=== PATIENT | female | born 1970 | race Caucasian/White ===

== ENCOUNTER 2020-08-10 10:47 | Outpatient (REF) | payer BC, SELFPAY ==
--- NOTE | 2020-08-10 10:55 | XR_ITS ---
EXAMINATION: XR SINUSES CLINICAL INFORMATION: Sinusitis COMPARISON: None TECHNIQUE: 4 FINDINGS: There is soft tissue opacification of the right maxillary and frontal sinuses suggestive of sinusitis. Paranasal sinuses are otherwise clear. Bony structures are unremarkable. XR/XR sinus min 3V IMPRESSION: Right maxillary and frontal sinusitis.
== END 2020-08-10 10:48 | disposition home or self-care (01) ==
LOC: HO.XRAY 10:47
PROVIDERS: PCP Internal Medicine; Visit Provider Otolaryngology
DX: J32.9 Chronic sinusitis, unspecified (principal)
CPT/HCPCS: 70220

== ENCOUNTER 2020-08-26 14:24 | Outpatient (REF) | payer BC, SELFPAY ==
--- NOTE | 2020-08-26 14:25 | CT_ITS ---
CT SINUS WITHOUT CONTRAST CLINICAL INFORMATION: Sinonasal polyps. COMPARISON: Sinus radiographs 08/10/2020. TECHNIQUE: Multidetector CT acquisition of the maxillofacial region is obtained without IV contrast. Multiplanar reformats are acquired and utilized for image interpretation. This CT examination was performed using dose optimization techniques as appropriate, variously including the following: *Automated exposure control *Adjustment of mA and/or kV according to patient size (this includes techniques or standardized protocols for targeted exams where dose is matched to indication/reason for exam; i.e. extremities or head) *Use of iterative reconstruction technique FINDINGS: There is moderate mucosal thickening within the right maxillary sinus. There is mild mucosal thickening within the left maxillary sinus. Moderate mucosal thickening within the left sphenoid sinus. There is moderate mucosal thickening within the ethmoid air cells bilaterally. The right frontal sinus and right frontal recess are completely opacified. TMJs are normal. Mastoid air cells and middle ear cavities are clear. 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 The internal carotid arteries remain will cover with bone. The bony orbits are intact. Fovea ethmoidalis and olfactory grooves are symmetric in depth. Severe rightward deviation of the nasal septum. No polypoid soft tissue is appreciated within the nasal cavities. The right maxillary ostium and infundibulum are opacified. CT/CT sinus wo con IMPRESSION: - Moderate sinus mucosal disease within the right maxillary sinus, the left sphenoid sinus, and within the ethmoid air cells bilaterally. The right frontal sinus and right frontal recess are completely opacified. The right maxillary ostium and infundibulum are opacified. - Severe rightward deviation of the nasal septum.
== END 2020-08-26 14:25 | disposition home or self-care (01) ==
LOC: HO.CT 14:24
PROVIDERS: PCP Internal Medicine; Visit Provider Otolaryngology
DX: J33.9 Nasal polyp, unspecified (principal); J34.2 Deviated nasal septum
CPT/HCPCS: 70486

== ENCOUNTER 2020-09-06 09:50 | Outpatient (REF) | payer BC, SELFPAY ==
[2020-09-06 11:12] LABS: MANUAL DIFF FLAG NO
[2020-09-06 11:23] LABS: Basophils Percent Auto 0.7 % (0-2); Eosinophils Absolute Auto 0.4 X10*3/uL (0.0-0.4); Eosinophils Percent Auto 5.7 % (0-4); Hematocrit 43.4 % (37-47); Hemoglobin 14.4 g/dl (12.0-16.0); Imm Gran Abs Auto 0.04 X10*3/uL (0.00-0.03); Imm Gran Pct Auto 0.7 % (0.0-0.4); Lymphocytes Absolute Auto 1.9 X10*3/uL (1.2-4.9); Lymphocytes Percent Auto 30.9 % (20-40); Mean Corpuscular HGB Conc 33.2 g/dl (31.0-35.0); Mean Corpuscular Hemoglobin 29.6 pg (27.0-33.0); Mean Corpuscular Volume 89.3 fL (80-98); Mean Platelet Volume 10.9 fL (9.4-12.3); Monocytes Absolute Auto 0.5 X10*3/uL (0.1-1.2); Neutrophils Absolute Auto 3.3 X10*3/uL (2.0-8.3); Platelet Count 242 X10*3/uL (160-400); Red Blood Count 4.86 X10*6/uL (4.20-5.50); Red Cell Distribution Width 11.9 % (11.0-16.0); White Blood Count 6.1 X10*3/uL (4.8-10.8)
[2020-09-06 11:54] LABS: Anion Gap 14 (12-20); Blood Urea Nitrogen 11 mg/dL (9-16); Carbon Dioxide 25 mmol/L (22-29); Chloride 103 mmol/L (96-108); Cholesterol 208 mg/dL; Estimated Glomerular Filt Rate > 60; Glucose Fasting 110 mg/dL (60-99); HDL Cholesterol 60 mg/dL; LDL Cholesterol Calculated 130 mg/dl; Potassium 4.7 mmol/l (3.3-5.1); Sodium 137 mmol/L (135-145); Triglycerides 90 mg/dL
[2020-09-08 22:32] LABS: TS Negative Control Passed; TS Panel A 1; TS Panel B 0; TS Positive Control Passed; TSpotTB Negative (SeeBelow)
== END 2020-09-06 09:51 | disposition home or self-care (01) ==
LOC: HO.HMGCLDS 09:50
PROVIDERS: PCP Internal Medicine; Visit Provider Internal Medicine
DX: I10 Essential (primary) hypertension (principal); Z00.01 Encounter for general adult medical examination with abnormal findings; Z11.1 Encounter for screening for respiratory tuberculosis; Z13.9 Encounter for screening, unspecified
CPT/HCPCS: 36415; 80048; 80061; 85025; 86481

== ENCOUNTER 2020-09-08 15:24 | Outpatient (REF) | payer BC, SELFPAY | END 2020-09-08 15:25 | disposition home or self-care (01) | LOC: HO.LAB 15:24 | PROVIDERS: PCP Internal Medicine; Visit Provider Internal Medicine | DX: Z20.828 Contact with and (suspected) exposure to other viral communicable diseases (principal) | CPT/HCPCS: C9803; U0003 ==

== ENCOUNTER 2021-06-16 08:42 | Outpatient (REF) | payer BC, SELFPAY ==
[2021-06-16 11:10] LABS: MANUAL DIFF FLAG NO
[2021-06-16 11:31] LABS: Basophils Percent Auto 0.7 % (0-2); Eosinophils Absolute Auto 0.1 X10*3/uL (0.0-0.4); Eosinophils Percent Auto 2.1 % (0-4); Hematocrit 41.9 % (37-47); Hemoglobin 14.1 g/dl (12.0-16.0); Imm Gran Abs Auto 0.03 X10*3/uL (0.00-0.03); Imm Gran Pct Auto 0.5 % (0.0-0.4); Lymphocytes Absolute Auto 1.9 X10*3/uL (1.2-4.9); Lymphocytes Percent Auto 30.1 % (20-40); Mean Corpuscular HGB Conc 33.7 g/dl (31.0-35.0); Mean Corpuscular Hemoglobin 29.6 pg (27.0-33.0); Mean Corpuscular Volume 87.8 fL (80-98); Mean Platelet Volume 11.2 fL (9.4-12.3); Monocytes Absolute Auto 0.5 X10*3/uL (0.1-1.2); Monocytes Percent Auto 7.8 % (2-11); Neutrophils Absolute Auto 3.6 X10*3/uL (2.0-8.3); Neutrophils Percent Auto 58.8 % (45-73); Platelet Count 183 X10*3/uL (160-400); Red Blood Count 4.77 X10*6/uL (4.20-5.50); White Blood Count 6.2 X10*3/uL (4.8-10.8)
== END 2021-06-16 08:43 | disposition home or self-care (01) ==
LOC: HO.HMGCLDS 08:42
PROVIDERS: PCP Internal Medicine; Visit Provider Internal Medicine
DX: K62.5 Hemorrhage of anus and rectum (principal); R14.0 Abdominal distension (gaseous)
CPT/HCPCS: 36415; 85025

== ENCOUNTER 2021-07-30 08:43 | Outpatient (REF) | payer BC, SELFPAY ==
--- NOTE | ~2021-07-30 | MM_ITS ---
EXAMINATION: MM SCREENING DIGITAL BREAST TOMOSYNTHESIS, BILATERAL CLINICAL INFORMATION: Screening. Asymptomatic. The lifetime risk of breast cancer based on the Tyrer-Cuzick Model is 9%. COMPARISON: Mammography: 06/26/2020, 03/01/2019, 02/11/2018, 02/08/2017 TECHNIQUE: Digital breast tomosynthesis is performed in both the craniocaudal and mediolateral oblique views along with computer-aided detection (CAD). Synthesized 2D images are generated from the tomosynthesis. FINDINGS: There are scattered areas of fibroglandular density (ACR BI-RADS breast composition Category b). There are no significant masses, abnormal calcifications, or other abnormalities. Small focal asymmetric density anterior lower inner left breast is similar to prior studies. No developing density. No significant changes. MM/MM tomosynthesis screening BI IMPRESSION: No mammographic evidence of malignancy. ASSESSMENT: BI-RADS 2: Benign RECOMMENDATION: Routine annual mammography screening. This patient's information was entered into a reminder system with a target due date for their next mammogram.
== END 2021-07-30 08:44 | disposition home or self-care (01) ==
LOC: HO.MAMMO 08:43
PROVIDERS: Visit Provider Internal Medicine
DX: Z12.31 Encounter for screening mammogram for malignant neoplasm of breast (principal)
CPT/HCPCS: 77063; 77067

== ENCOUNTER → 2021-08-17 09:46 | Outpatient (BNVA) | payer BC, SELFPAY | PROVIDERS: PCP Internal Medicine; Referring Provider Internal Medicine; Visit Provider Surgery | DX: K62.5 Hemorrhage of anus and rectum (principal) | CPT/HCPCS: 46600 ==

== ENCOUNTER 2021-09-23 06:30 | Day surgery (SDC) | payer BC, SELFPAY ==
--- NOTE | 2021-09-22 12:05 | HO.ANESPROP2 ---
Documented by User: Jil Trinidad NP 09/22/21 12:05 HPI - Anesthesia Eval Consult details Narrative: 50yo F for Colonoscopy, Poss Polypectomy PMFSH Active Problems Active Problems: All Active Problems (Updated 09/16/21 @ 12:39 by Susan Yanez MD) Surgical menopause (Acute) Rectal bleeding (Acute) External hemorrhoids (Acute) Seasonal allergies (Acute) Endometrial polyp (Acute) Varicose veins of both lower extremities (Acute) Past Medical History Medical History (Updated 09/16/21 @ 12:39 by Susan Yanez MD) Acute maxillary sinusitis Endometrial polyp External hemorrhoids Rectal bleeding Seasonal allergies Surgical menopause Varicose veins of both lower extremities Family History Family History Father Diabetes mellitus HTN (hypertension) Stroke Mother Diabetes mellitus HTN (hypertension) CHF (congestive heart failure) Sister Fibromyalgia Arthritis Maternal Grandfather History of heart attack Maternal Grandmother No problems noted. Paternal Grandfather No problems noted. Paternal Grandmother No problems noted. Brother No problems noted. Brother No problems noted. Sister No problems noted. Sister No problems noted. Son No problems noted. Daughter No problems noted. Daughter No problems noted. Daughter No problems noted. Daughter No problems noted. Daughter No problems noted. Surgical History Surgical History History of section History of exploratory laparotomy History of hysteroscopy History of total abdominal hysterectomy Social History Social History Housing: Apartment Alcohol intake: current Alcohol intake frequency: holidays/special occasions only Patient Tobacco Use Status: Never used Tobacco e-Cigarette/Vaping Use: Never Used Second Hand Smoke Exposure: No Use of substances other than those prescribed or required for medical reasons: No Are you DNR?: No Advance Directives: No Advance Directives Information Provided: No service: No Current occupational status: employed Meds Allergies Allergy/AdvReac Type Severity Reaction Status Date / Time No Known Allergies Allergy Verified 09/16/21 12:26 Exam Exam Date and Time: September 22, 2021 1205 Assessment and Plan Assessment Anesthesia Assessment: Chart Reviewed Documented by User: Russlavell Purdy 09/23/21 07:17 PMFSH Past Medical History Medical History (Updated 09/16/21 @ 12:39 by Susan Yanez MD) Acute maxillary sinusitis Endometrial polyp External hemorrhoids Rectal bleeding Seasonal allergies Surgical menopause Varicose veins of both lower extremities Functional capacity: independent ambulation Family History Family History Father Diabetes mellitus HTN (hypertension) Stroke Mother Diabetes mellitus HTN (hypertension) CHF (congestive heart failure) Sister Fibromyalgia Arthritis Maternal Grandfather History of heart attack Maternal Grandmother No problems noted. Paternal Grandfather No problems noted. Paternal Grandmother No problems noted. Brother No problems noted. Brother No problems noted. Sister No problems noted. Sister No problems noted. Son No problems noted. Daughter No problems noted. Daughter No problems noted. Daughter No problems noted. Daughter No problems noted. Daughter No problems noted. Family history of problems with anesthesia: No Surgical History Surgical History History of section History of exploratory laparotomy History of hysteroscopy History of total abdominal hysterectomy History of Problems with Anesthesia: No Social History Social History Housing: Apartment Alcohol intake: current Alcohol intake frequency: holidays/special occasions only Patient Tobacco Use Status: Never used Tobacco e-Cigarette/Vaping Use: Never Used Second Hand Smoke Exposure: No Use of substances other than those prescribed or required for medical reasons: No Are you DNR?: No Advance Directives: No Advance Directives Information Provided: No service: No Current occupational status: employed Meds Allergies Allergy/AdvReac Type Severity Reaction Status Date / Time No Known Allergies Allergy Verified 09/16/21 12:26 Exam Airway Mallampati Class: I TM Dist: >3cm Neck ROM: Full Loose/Missing/Broken Teeth: Yes Heart: rrr Lungs: bl breath sounds Assessment and Plan Final Anesthetic Review Family History of Problems with Anesthesia: No History of Problems with Anesthesia: No NPO: Yes ASA Class: II Final Preanesthetic Review: Meds/Allgs Chart Reviewed and Anes Risks/Benef Reviewed Patient Risk: Intermediate Procedure Risk: Intermediate Anesthetic Plan Anesthetic Plan: MAC: Disposition: Standard PACU
[2021-09-23 06:41] VITALS: BP 126/81; PULSE 86; RESP 16; TEMP 36.8; O2SAT 99; BMI 28.7
[2021-09-23] MEDS: Lactated Ringers 1,000 ML 100 ML IVCONT (07:13)
--- NOTE | 2021-09-23 07:23 | MHC.SHP ---
Pre-Procedural Eval Section A Date of Service: 09/23/21 Section B Chief Complaint: Rectal Bleeding Details of Present Illness: had passage of bright blood per rectum for several days in June Relevant Family History (Specify if Yes): No Relevant Social History: None Present Medications: see Short Stay Collaborative assessment Medical History: Significant History (seasonal allergies, varicose veins) Allergies: Allergies Allergy/AdvReac Type Severity Reaction Status Date / Time No Known Allergies Allergy Verified 09/16/21 12:26 Review of Systems Sugical H&P ROS: Negative: Constitution, Cardiovascular, Respiratory, Neurological, Psychiatric, Hem-Onc, Allergic/Immunologic, Gastrointestinal, Genitourinary, Musculoskeletal, Integumentary, Endocrine and Eyes/Ears/Nose/Throat Exam Surgical H&P Exam: Normal: HEENT, Normal: Heart, Normal: Lungs, Normal: Extremities, Normal: Abdomen, Normal: Skin and Normal: Neurological Plan Diagnosis/Plan: Unchanged I have reviewed the history and physical and performed a pertinent physical examination on my patient. No changes have occurred unless specified.
--- NOTE | 2021-09-23 08:02 | W.PM.OPN ---
Operative Note Operative Note Date of Service: 09/23/21 Narrative: Preop diagnosis: Rectal bleeding Postop diagnosis: 1. Mild diverticulosis him 2. Internal and external hemorrhoids Procedure: Colonoscopy surgeon: Bharat Downs MD The patient is a 50-year-old female with recent passage of bright blood per rectum for several days. . She did have hemorrhoids on examination in the office. Liver, in view of her age, I had recommended proceeding with colonoscopy. I discussed with the technique of this procedure and she was aware of the risks, benefits, and alternatives. She was brought to the operating room and placed in left lateral decubitus position under monitored anesthesia care. A full digital rectal was done. There were no palpable anal lesions except for internal and external hemorrhoids. The tip of the Olympus colonoscope was gently introduced through the anal orifice advanced with insufflation all the cecum. The cecum was intubated. The cecum was identified by visualization of the ileocecal valve as well as the appendiceal orifice. The cecal mucosa was unremarkable. The scope was gradually withdrawn with careful examination of the entire colonic mucosa being done with scope withdrawal. The patient had good bowel prep so it was unlikely that any lesion may have been missed. There was note of occasional diverticuli in the left colon and sigmoid The rectum was reached. There were no lesions seen. the anal shelf in the anal canal were examined carefully. She did have prominent internal and external hemorrhoids. The scope was then withdrawn completely with desufflation The patient tolerated the procedure well. There were no complications noted. Her next colonoscopy may be in the next 10 years. She falls at average risk for colon cancer.
[2021-09-23 08:09] VITALS: BP 107/65; PULSE 96; RESP 16; TEMP 36.3; O2SAT 98
[2021-09-23 08:24] VITALS: BP 110/75; PULSE 90; RESP 16; TEMP 36.3; O2SAT 98
[2021-09-23 08:39] VITALS: BP 117/74; PULSE 74; RESP 15; O2SAT 98
== END 2021-09-23 09:15 | disposition home or self-care (01) ==
PROVIDERS: PCP Internal Medicine; Visit Provider Surgery
PROC: 0DJD8ZZ Inspection of Lower Intestinal Tract, Via Natural or Artificial Opening Endoscopic (ICD-10-PCS; CPT 45378; principal; 2021-09-23 07:30)
DX: K62.5 Hemorrhage of anus and rectum (principal); K64.8 Other hemorrhoids; K64.4 Residual hemorrhoidal skin tags; K57.30 Diverticulosis of large intestine without perforation or abscess without bleeding; J30.2 Other seasonal allergic rhinitis; Z79.899 Other long term (current) drug therapy
CPT/HCPCS: 45378

== ENCOUNTER → 2021-10-05 10:07 | Outpatient (BNVA) | payer BC, SELFPAY | PROVIDERS: PCP Internal Medicine; Referring Provider Internal Medicine; Visit Provider Surgery ==

== ENCOUNTER 2021-10-25 08:16 | Outpatient (REF) | payer BC, SELFPAY ==
[2021-10-25 09:08] LABS: Binax Internal Control QC Valid; Binax Now Covid-19 Ag Positive (Negative)
== END 2021-10-25 08:17 | disposition home or self-care (01) ==
LOC: HO.LAB 08:16
PROVIDERS: Visit Provider Internal Medicine
DX: Z20.822 Contact with and (suspected) exposure to COVID-19 (principal)
CPT/HCPCS: C9803

== ENCOUNTER 2021-12-03 07:18 | Outpatient (REF) | payer BC, SELFPAY ==
[2021-12-03 10:59] LABS: MANUAL DIFF FLAG NO
[2021-12-03 11:10] LABS: Basophils Percent Auto 0.3 % (0-2); Eosinophils Absolute Auto 0.1 X10*3/uL (0.0-0.4); Eosinophils Percent Auto 0.8 % (0-4); Imm Gran Abs Auto 0.06 X10*3/uL (0.00-0.03); Imm Gran Pct Auto 0.8 % (0.0-0.4); Lymphocytes Absolute Auto 1.4 X10*3/uL (1.2-4.9); Lymphocytes Percent Auto 17.9 % (20-40); Mean Corpuscular HGB Conc 33.3 g/dl (31.0-35.0); Mean Corpuscular Hemoglobin 29.4 pg (27.0-33.0); Mean Corpuscular Volume 88.2 fL (80.0-98.0); Monocytes Absolute Auto 0.6 X10*3/uL (0.1-1.2); Monocytes Percent Auto 7.7 % (2-11); Neutrophils Absolute Auto 5.8 x10*3/uL (2.0-8.3); Neutrophils Percent Auto 72.5 % (45-73); Platelet Count 194 X10*3/uL (160-400); Red Cell Distribution Width 12.1 % (11.0-16.0)
[2021-12-03 11:35] LABS: Alanine Aminotransferase 40 U/L (0-31); Anion Gap 14 (12-20); Aspartate Amino Transferase 31 U/L (5-31); Blood Urea Nitrogen 8 mg/dL (9-16); Calcium 9.7 mg/dL (8.4-10.2); Carbon Dioxide 24 mmol/L (22-29); Chloride 101 mmol/L (96-108); Cholesterol 189 mg/dL; Estimated Glomerular Filt Rate > 60; Glucose Fasting 135 mg/dL (60-99); HDL Cholesterol 54 mg/dL; LDL Cholesterol Calculated 104 mg/dl; Potassium 4.2 mmol/L (3.3-5.1); Sodium 135 mmol/L (135-145); Triglycerides 159 mg/dL
[2021-12-03 11:41] LABS: TSH reflex Free T4 4.16 uIU/mL (0.32-4.0); Vitamin D 25-OH Total 15.6 ng/mL (>30)
[2021-12-03 12:19] LABS: Free T4 (Free Thyroxine) 0.83 ng/dL (0.71-1.85)
[2021-12-05 09:30] LABS: Folate 17.1 ng/mL (> or = 4.0); Vitamin B12 446 pg/mL (200-900)
== END 2021-12-03 07:19 | disposition home or self-care (01) ==
LOC: HO.HMGCLDS 07:18
PROVIDERS: Visit Provider Internal Medicine
DX: Z00.01 Encounter for general adult medical examination with abnormal findings (principal); I10 Essential (primary) hypertension; K64.4 Residual hemorrhoidal skin tags; R53.83 Other fatigue; E89.40 Asymptomatic postprocedural ovarian failure
CPT/HCPCS: 36415; 80048; 80061; 82306; 82607; 82746; 84439; 84443; 84450; 84460; 85025

== ENCOUNTER 2022-09-25 13:10 | Outpatient (REF) | payer BC, SELFPAY ==
--- NOTE | ~2022-09-25 | XR_ITS ---
EXAMINATION: XR ABDOMEN COMPLETE CLINICAL INDICATION: Unspecified abdominal pain COMPARISON: None TECHNIQUE: 2 views of the abdomen. FINDINGS: No dilated air-filled loops of small bowel to suggest an obstructive process. Normal colonic stool burden. No abnormal air-fluid levels identified on upright imaging. No gross free intra-abdominal air. Visualized lung bases are well aerated. No acute osseous abnormality. XR/XR abdomen min 2V IMPRESSION: Nonobstructive bowel gas pattern.
[2022-09-25 14:03] LABS: MANUAL DIFF FLAG NO
[2022-09-25 14:10] LABS: Basophils Percent Auto 0.6 % (0-2); Eosinophils Absolute Auto 0.1 X10*3/uL (0.0-0.4); Hematocrit 43.8 % (37.0-47.0); Hemoglobin 14.7 g/dl (12.0-16.0); Imm Gran Abs Auto 0.03 X10*3/uL (0.00-0.03); Imm Gran Pct Auto 0.4 % (0.0-0.4); Lymphocytes Absolute Auto 2.5 X10*3/uL (1.2-4.9); Lymphocytes Percent Auto 35.5 % (20-40); Mean Corpuscular HGB Conc 33.6 g/dl (31.0-35.0); Mean Corpuscular Hemoglobin 29.3 pg (27.0-33.0); Mean Corpuscular Volume 87.4 fL (80.0-98.0); Mean Platelet Volume 10.4 fL (9.4-12.3); Monocytes Absolute Auto 0.4 X10*3/uL (0.1-1.2); Monocytes Percent Auto 5.2 % (2-11); Neutrophils Absolute Auto 3.9 x10*3/uL (2.0-8.3); Neutrophils Percent Auto 56.3 % (45-73); Platelet Count 323 X10*3/uL (160-400); Red Blood Count 5.01 X10*6/uL (4.20-5.50); Red Cell Distribution Width 11.6 % (11.0-16.0)
[2022-09-25 14:38] LABS: Alanine Aminotransferase 39 U/L (0-31); Albumin Level 4.4 g/dL (3.5-5.0); Alkaline Phosphatase 84 U/L (39-117); Aspartate Amino Transferase 27 U/L (5-31); Bilirubin Direct < 0.2 mg/dL (0.0-0.5); Bilirubin Total 0.3 mg/dL (0.0-1.0); Total Protein 6.9 g/dL (6.5-8.0)
[2022-09-29 14:08] LABS: Endomysial IgA Antibody Negative (Negative); Transglutaminase Ab IgG <1.0 U/mL; Transglutaminase IgA <1.0 U/mL
== END 2022-09-25 13:11 | disposition home or self-care (01) ==
LOC: HO.HMGCX 13:10
PROVIDERS: PCP Internal Medicine; Visit Provider Physician Assistant
DX: R10.9 Unspecified abdominal pain (principal)
CPT/HCPCS: 36415; 74019; 80076; 85025; 86231; 86364

== ENCOUNTER 2022-10-13 10:34 | Outpatient (REF) | payer BC, SELFPAY ==
--- NOTE | ~2022-10-13 | US_ITS ---
EXAMINATION: US ABDOMEN COMPLETE CLINICAL INFORMATION: Right upper quadrant pain. COMPARISON: None TECHNIQUE: Real-time imaging of the abdominal viscera. FINDINGS: PANCREAS: Head and body are normal. Tail not well visualized due to bowel gas. ABDOMINAL AORTA: The proximal, mid, and distal segments are normal in caliber. INFERIOR VENA CAVA: Visualized portions are normal. LIVER: Liver echotexture is increased. Liver is normal in size and contour.. No focal hepatic lesion. There is no intrahepatic biliary duct dilatation seen. GALLBLADDER: Gallbladder is normal in size. Small echogenic density adjacent to the wall of the gallbladder that does not move or shadow suggestive of a bladder wall polyp or adenomyomatosis of the gallbladder wall. No definite gallstones. No gallbladder wall thickening. COMMON BILE DUCT: Normal in caliber measuring 0.3 cm in diameter. RIGHT KIDNEY: Hypoechoic area in the upper pole, question representing a prominent pyramid. Small right renal stone. No hydronephrosis. The kidney measures 10 cm in maximum dimension. LEFT KIDNEY: Small left renal stone. No hydronephrosis. No focal parenchymal lesions. The kidney measures 10 cm in maximum dimension. SPLEEN: Normal. The spleen measures 9.7 cm in maximum dimension. FREE FLUID: None. US/US abdomen complete IMPRESSION: Echogenic liver probably representing fatty infiltration. Probable small gallbladder wall polyps/adenomyomatosis of the gallbladder wall. No definite gallstones. Bilateral renal stones. Limited visualization of the tail the pancreas.
== END 2022-10-13 10:35 | disposition home or self-care (01) ==
LOC: HO.HMGCX 10:34
PROVIDERS: PCP Internal Medicine; Visit Provider Internal Medicine
DX: R10.11 Right upper quadrant pain (principal)
CPT/HCPCS: 76700

== ENCOUNTER 2022-10-21 08:34 | Outpatient (REF) | payer BC, SELFPAY ==
--- NOTE | ~2022-10-21 | MM_ITS ---
EXAMINATION: MM SCREENING DIGITAL BREAST TOMOSYNTHESIS, BILATERAL CLINICAL INFORMATION: Screening. Asymptomatic. The lifetime risk of breast cancer based on the Tyrer-Cuzick Model is 8%. COMPARISON: Mammography: 07/30/2021, 06/26/2020, 03/01/2019 TECHNIQUE: Digital breast tomosynthesis is performed in both the craniocaudal and mediolateral oblique views along with computer-aided detection (CAD). Synthesized 2D images are generated from the tomosynthesis. FINDINGS: There are scattered areas of fibroglandular density (ACR BI-RADS breast composition Category b). Parenchymal pattern is similar to prior studies. There is no significant masses, abnormal calcifications, developing density or architectural abnormality. Small oval nodular asymmetry mid lower inner left breast is similar to prior studies. The axilla and skin contours are unremarkable. No significant changes. MM/MM tomosynthesis screening BI IMPRESSION: No mammographic evidence of malignancy. ASSESSMENT: BI-RADS 2: Benign RECOMMENDATION: Routine annual mammography screening. This patient's information was entered into a reminder system with a target due date for their next mammogram.
== END 2022-10-21 08:35 | disposition home or self-care (01) ==
LOC: HO.MAMMO 08:34
PROVIDERS: PCP Internal Medicine; Visit Provider Internal Medicine
DX: Z12.31 Encounter for screening mammogram for malignant neoplasm of breast (principal)
CPT/HCPCS: 77063; 77067

== ENCOUNTER 2022-12-11 10:00 | Outpatient (AMB) | payer BC, SELFPAY ==
--- NOTE | 2022-12-11 10:40 | MHC.PC.OV ---
Vital Signs 12/11/22 10:41 Height 5 ft Weight 154 lb BMI 30.0 BP 120/74 Blood Pressure Location Lt brachial Position Sitting Pulse 74 Pulse Source Pulse Oximeter Pulse Oximetry (%) 98 Oxygen Delivery Method Room Air Intake Visit Reasons: PE Intake Note: Pt is here for her annual physical exam. Allergies No Known Allergies Allergy (Verified 12/19/23 08:26) Medication List - Last Reconciled 12/11/22 by Susan Yanez MD linaclotide (Linzess) 72 mcg PO QAM Tobacco use date assessed: 12/11/22 HPI PE HPI Details 52-year-old lady here today for physical exam. She has been having intermittent episodes of constipation irregular bowel movements, doing better on Linzess.. She has history of impaired fasting glucose, has history of vitamin-D deficiency and intolerance for dairy products. She does not get any further cervical cancer screening as she had a partial hysterectomy due to fibroids in the past. She is up-to-date with her screening mammogram, done earlier this year and is up-to-date with her screening colonoscopy done in 2020 with normal findings. [facility] Medical History (Updated 12/19/23 @ 09:17 by Susan Yanez MD) Irritable bowel syndrome with constipation Chronic pruritic rash in adult Lactose intolerance in adult Gallbladder polyp Vitamin D deficiency Impaired fasting glucose Diverticulosis Hemorrhoids Surgical menopause Rectal bleeding External hemorrhoids Seasonal allergies Endometrial polyp Varicose veins of both lower extremities Surgical History History of partial hysterectomy Hx of colonoscopy History of hysteroscopy History of section History of exploratory laparotomy Family History Father Diabetes mellitus HTN (hypertension) Stroke Mother Diabetes mellitus HTN (hypertension) CHF (congestive heart failure) Sister Fibromyalgia Arthritis Maternal Grandfather History of heart attack Maternal Grandmother No problems noted. Paternal Grandfather No problems noted. Paternal Grandmother No problems noted. Brother No problems noted. Brother No problems noted. Sister No problems noted. Sister No problems noted. Son No problems noted. Daughter No problems noted. Daughter No problems noted. Daughter No problems noted. Daughter No problems noted. Daughter No problems noted. Social History Housing: Apartment Alcohol intake: current Alcohol intake frequency: holidays/special occasions only Patient Tobacco Use Status: Never used Tobacco e-Cigarette/Vaping Use: Never Used Second Hand Smoke Exposure: No service: No Current occupational status: employed Cognitive needs: No Hearing needs: No Vision needs: No Questionnaire PHQ-9 Over the last 2 weeks, how often have you been bothered by any of the following problems? 1. Little interest or pleasure in doing things: not at all 2. Feeling down, depressed, or hopeless: not at all 3. Trouble falling or staying asleep, or sleeping too much: not at all 4. Feeling tired or having little energy: not at all 5. Poor appetite or overeating: not at all 6. Feeling bad about yourself - or that you are a failure or have let yourself or your family down: not at all 7. Trouble concentrating on things, such as reading the newspaper or watching television: not at all 8. Moving or speaking so slowly that other people could have noticed. Or the opposite - being so fidgety or restless that you have been moving around a lot more than usual: not at all 9. Thoughts that you would be better off or of hurting yourself in some way: not at all Total score: 0 Depression Screening Interpretation: Negative [id number] - PHQ-9 Billing: Yes Source: Developed by Drs. Kali Gomez, Miryam Rosenthal, Lee Galloway and colleagues, with an educational may from [employer]. Thrive Questionnaire Declines Thrive assessment: No Date Thrive assessed: 12/11/22 I am a: Patient What is your living situation today?: I have a steady place to live Within the past 12 months, did the food you bought not last and you didn't have the money to get more?: Never true Within the past 12 months, did you worry whether your food would run out before you got money to buy more?: Never true Do you have trouble paying for medicines?: No Do you have trouble getting transportation to medical appointments?: No Do you have trouble paying your heating and electricity bill?: No Do you have trouble taking care of your child, family member or friend?: No Do you have trouble with day-to-day activities such as bathing, preparing meals, shopping, managing finances, etc.?: No Are you currently unemployed and looking for a job?: No Are you interested in more education?: No AUDIT C Alcohol Use Questionnaire (AUDIT-C) 1. How often do you have a drink containing alcohol?: Monthly or less 2. How many drinks containing alcohol do you have on a typical day when you are drinking?: 1 or 2 3. How often do you have six or more drinks on one occasion?: Never Total Score: 1 DIANNA-7 AMB Questionnaire DIANNA-7 Date DIANNA - 7 assessed: 12/11/22 Feeling nervous, anxious, or on edge: 0 = Not at all Not being able to stop or control worryin = Not at all Worrying too much about different things: 0 = Not at all Trouble relaxin = Not at all Being so restless that it is hard to sit still: 0 = Not at all Becoming easily annoyed or irritable: 0 = Not at all Feeling afraid as if something awful might happen: 0 = Not at all Total DIANNA-7 score (0-4 normal; 5-9 mild; 10-14 moderate; 15-21 severe): 0 Source: Developed by Drs. Kali Gomez, Miryam Rosenthal, Lee Galloway and colleagues, with an educational may from [employer]. DIANNA-7 Assessment Billing DIANNA-7 Assessment Tool: DIANNA-7 Assessment 73108 Review of Systems Const Denies chills, Denies fatigue and Denies fever(s) Eyes Reports no additional complaints ENT Denies sore throat Card Denies chest pain, Denies palpitations and Denies dyspnea Resp Denies cough and Denies dyspnea GI Reports no additional complaints Denies hematuria Musc Denies back pain and Denies limited range of motion Skin/Breast Denies lesions and Denies rash Neuro Reports no additional complaints Psych Reports no additional complaints Endo Denies fatigue, Denies polyphagia, Denies polydipsia, Denies polyuria and Denies palpitations [place]/Lymph Denies easy bleeding and Denies easy bruising Aller/Immun Reports no additional complaints Physical exam (Primary Care) Vital Signs: Last Vital Signs Pulse 74 12/11/22 10:41 BP 120/74 12/11/22 10:41 Pulse Ox 98 12/11/22 10:41 Oxygen Delivery Method Room Air 12/11/22 10:41 BMI result Body Mass Index 30.0 Tobacco/Smoking Status: Tobacco use Status Tobacco use date assessed 12/11/22 12/11/22 10:43 Patient Tobacco Use Status Never used Tobacco 12/11/22 10:43 e-Cigarette/Vaping Use Never Used 12/11/22 10:43 PHQ-9: PHQ-9 Score PHQ-9: Total score 0 12/11/22 11:21 Depression Screening Interpretation: Negative Thrive Assessment: Date of Thrive Assessment Date Thrive assessed 12/11/22 12/11/22 10:59 Const General: comfortable, no acute distress and alert Nutritional Appearance: overweight Orientation/consciousness: patient oriented x3 HENMT Mouth: Normal oral and palatal mucosa present, oropharynx normal and moist mucous membranes Eyes General: appearance normal, both eyes and all related structures Periorbital: periorbital findings normal Eyelids: Yes eyelids normal Conjunctivae: conjunctivae normal Sclerae: sclerae normal Pupils: Equal, round and reactive pupils present EOM: EOMs intact bilaterally Neck Neck: Yes full ROM, Yes no lymphadenopathy and Yes supple Thyroid: Thyroid normal Chest Breast/axilla inspection: normal inspection of the breasts Breast/axilla palpation: normal palpation of the breasts Resp Auscultation: clear to auscultation bilaterally Cardio Rate: regular rate Rhythm: regular rhythm Heart sounds: S1 normal heart sound present and S2 normal heart sound present GI Inspection: Yes normal to inspection Palpation (GI): Soft to palpation, nontender, no guarding and no masses General: Yes no CVA tenderness Back/Spine/Pelvis Back: no CVA tenderness Skin General skin exam: no rashes or lesions noted Neuro General: patient oriented x3, gait normal, moves all extremities, Normal light touch and pain sensation and no focal motor deficits Cranial nerves: Yes Equal, round and reactive pupils present Extrem General: Yes full ROM, Yes no joint enlargement, Yes no clubbing, cyanosis or edema and Yes normal gait Psych Appearance: grossly normal and well kempt Mental Status: mental status grossly normal Speech and movement: Normal speech and movement present Affect: normal affect Attitude: cooperative Assessment and Plan Assessment & Plan (1) Vitamin D deficiency: Code(s): E55.9 - Vitamin D deficiency, unspecified Plan: Will check another vitamin-D level (2) Impaired fasting glucose: Code(s): R73.01 - Impaired fasting glucose Plan: Previous fasting glucose levels were higher than 100 mg/dL. Impaired glucose metabolism makes you at risk for developing diabetes mellitus type 2, as well as heart attack and stroke later on. Lifestyle changes , weight loss, healthy eating habits, and regular exercise are important, and can prevent the progression to diabetes (3) Annual visit for general adult medical examination with abnormal findings: Code(s): Z00.01 - Encounter for general adult medical examination with abnormal findings Plan: Will check appropriate labs. Recommended dental visit every 6 months and regular eye exams, at least every 2 years. Take adequate calcium in diet and vitamin-D 3 at 2000 IU per cap once a day, in addition to weight-bearing exercises to help maintain good muscle tone and weight control. Instructed to do self-breast exam, and contain to get yearly mammogram, up-to-date with her screening colonoscopy, and her vaccination (4) Surgical menopause: Code(s): E89.40 - Asymptomatic postprocedural ovarian failure Orders: Orders Vitamin D 25-OH Total 12/11/22 E55.9 - Vitamin D deficiency, unspecified, R73.01 - Impaired fasting glucose, Z00.01 - Encounter for general adult medical examination with abnormal findings, E89.40 - Asymptomatic postprocedural ovarian failure Aspartate Amino Transferase 12/11/22 E55.9 - Vitamin D deficiency, unspecified, R73.01 - Impaired fasting glucose, Z00.01 - Encounter for general adult medical examination with abnormal findings, E89.40 - Asymptomatic postprocedural ovarian failure Lipid Panel 12/11/22 E55.9 - Vitamin D deficiency, unspecified, R73.01 - Impaired fasting glucose, Z00.01 - Encounter for general adult medical examination with abnormal findings, E89.40 - Asymptomatic postprocedural ovarian failure Basic Metabolic Panel Fasting 12/11/22 E55.9 - Vitamin D deficiency, unspecified, R73.01 - Impaired fasting glucose, Z00.01 - Encounter for general adult medical examination with abnormal findings, E89.40 - Asymptomatic postprocedural ovarian failure Alanine Aminotransferase 12/11/22 E55.9 - Vitamin D deficiency, unspecified, R73.01 - Impaired fasting glucose, Z00.01 - Encounter for general adult medical examination with abnormal findings, E89.40 - Asymptomatic postprocedural ovarian failure Coding Level of Care Code Est Pt Prev Care 40-64y(61629) Diagnoses Vitamin D deficiency E55.9 Impaired fasting glucose R73.01 Annual visit for general adult medical examination with abnormal findings Z00.01 Surgical menopause E89.40 Additional Codes DIANNA-7 Assessment Billing - DIANNA-7 Assessment Tool: DIANNA-7 Assessment [id number] ([id number])
[2022-12-11 10:41] VITALS: BP 120/74; PULSE 74; O2SAT 98
== END 2022-12-11 11:21 | disposition home or self-care (01) ==
LOC: HO.HMGC 10:01
PROVIDERS: PCP Internal Medicine; Visit Provider Internal Medicine
DX: E55.9 Vitamin D deficiency, unspecified (principal); R73.01 Impaired fasting glucose; Z00.01 Encounter for general adult medical examination with abnormal findings; E89.40 Asymptomatic postprocedural ovarian failure
CPT/HCPCS: 99499

== ENCOUNTER 2023-03-15 07:44 | Outpatient (REF) | payer BC, SELFPAY ==
[2023-03-15 11:51] LABS: Alanine Aminotransferase 21 U/L (0-31); Anion Gap 13 (12-20); Aspartate Amino Transferase 27 U/L (5-31); Blood Urea Nitrogen 11 mg/dL (9-16); Calcium 9.8 mg/dL (8.4-10.2); Carbon Dioxide 25 mmol/L (22-29); Chloride 106 mmol/L (96-108); Cholesterol 186 mg/dL; Estimated Glomerular Filt Rate > 60; Glucose Fasting 121 mg/dL (60-99); HDL Cholesterol 51 mg/dL; LDL Cholesterol Calculated 108 mg/dl; Potassium 4.3 mmol/L (3.3-5.1); Sodium 140 mmol/L (135-145); Triglycerides 136 mg/dL; Vitamin D 25-OH Total 32.7 ng/mL (>30)
== END 2023-03-15 07:45 | disposition home or self-care (01) ==
LOC: HO.HMGCLDS 07:44
PROVIDERS: PCP Internal Medicine; Visit Provider Internal Medicine
DX: Z00.01 Encounter for general adult medical examination with abnormal findings (principal); E55.9 Vitamin D deficiency, unspecified; E89.40 Asymptomatic postprocedural ovarian failure; R73.01 Impaired fasting glucose
CPT/HCPCS: 36415; 80048; 80061; 82306; 84450; 84460

== ENCOUNTER 2023-09-03 13:50 | Outpatient (AMB) | payer BC, SELFPAY ==
[2023-09-03 14:36] VITALS: BP 126/82; PULSE 71; TEMP 36.6; O2SAT 98; BMI 28.7
--- NOTE | 2023-09-03 14:36 | AM.OFFWIN_ITS ---
Intake Vital Signs 09/03/23 14:36 Height 5 ft Weight 147 lb 2 oz BMI 28.7 BP 126/82 Blood Pressure Location Lt brachial Position Sitting Pulse 71 Pulse Source Pulse Oximeter Temp 97.8 F Temp Source Oral Pulse Oximetry (%) 98 Oxygen Delivery Method Room Air Intake Visit Reasons: EP, left teary eye Intake Note: pt is here for c/o left teary eye, denies vision change Patient Tobacco Use Status: Never used Tobacco Allergies No Known Allergies Allergy (Verified 09/03/23 14:37) Do you need a note to return to daycare/school/sports/work: Yes HPI EP, left teary eye HPI Details 52-year-old female presents to the [facility] for a sick visit. Patient is reporting symptoms of increased years, congestion. No blurred vision. Does not wear contact lenses. [facility] Medical History (Updated 04/02/23 @ 08:43 by Kenrick Morillo MD) Lactose intolerance in adult Gallbladder polyp Pelvic pain Vitamin D deficiency Impaired fasting glucose Diverticulosis Hemorrhoids Surgical menopause Rectal bleeding External hemorrhoids Seasonal allergies Endometrial polyp Varicose veins of both lower extremities Surgical History History of partial hysterectomy Hx of colonoscopy History of hysteroscopy History of section History of exploratory laparotomy Family History Father Diabetes mellitus HTN (hypertension) Stroke Mother Diabetes mellitus HTN (hypertension) CHF (congestive heart failure) Sister Fibromyalgia Arthritis Maternal Grandfather History of heart attack Maternal Grandmother No problems noted. Paternal Grandfather No problems noted. Paternal Grandmother No problems noted. Brother No problems noted. Brother No problems noted. Sister No problems noted. Sister No problems noted. Son No problems noted. Daughter No problems noted. Daughter No problems noted. Daughter No problems noted. Daughter No problems noted. Daughter No problems noted. Social History Housing: Apartment Alcohol intake: current Alcohol intake frequency: holidays/special occasions only Patient Tobacco Use Status: Never used Tobacco e-Cigarette/Vaping Use: Never Used Second Hand Smoke Exposure: No service: No Current occupational status: employed Cognitive needs: No Hearing needs: No Vision needs: No Physical Exam Vital Signs: Last Vital Signs Temp 97.8 F 09/03/23 14:36 Pulse 71 09/03/23 14:36 BP 126/82 09/03/23 14:36 Pulse Ox 98 09/03/23 14:36 Oxygen Delivery Method Room Air 09/03/23 14:36 BMI result Body Mass Index 28.7 HEENT Other: Right and left eye: Bulbar conjunctiva is clear. Anterior chambers clear. Assessment & Plan Assessment & Plan (1) Conjunctivitis: Code(s): H10.9 - Unspecified conjunctivitis Plan: Allergic etiology. Symptoms do not improve to follow-up here. Medications: New ketotifen fumarate 0.025%(0.035%) (Zaditor) administer at least 8 hours apart 1 drp ophthalmic (eye) BID 5 mL 0RF Coding Level of Care Code Est Pt Level 3 (70613) Diagnoses Conjunctivitis H10.9
== END 2023-09-03 15:22 | disposition home or self-care (01) ==
PROVIDERS: PCP Internal Medicine; Visit Provider Internal Medicine
DX: H10.9 Unspecified conjunctivitis (principal)
CPT/HCPCS: 99213

== ENCOUNTER 2023-11-10 08:13 | Outpatient (REF) | payer BC, SELFPAY | END 2023-11-10 08:14 | disposition home or self-care (01) | LOC: HO.MAMMO 08:13 | PROVIDERS: PCP Internal Medicine; Visit Provider Internal Medicine | DX: Z12.31 Encounter for screening mammogram for malignant neoplasm of breast (principal) | CPT/HCPCS: 77063; 77067 ==

== ENCOUNTER → 2023-11-10 08:15 | Outpatient (BNV) | payer BC, SELFPAY | PROVIDERS: PCP Internal Medicine; Visit Provider Radiology Diagnostic Radiology | DX: Z12.31 Encounter for screening mammogram for malignant neoplasm of breast (principal) | CPT/HCPCS: 77063; 77067 ==

== ENCOUNTER 2023-12-19 07:59 | Outpatient (AMB) | payer BC, SELFPAY ==
[2023-12-19 08:03] VITALS: BP 122/84; PULSE 82; O2SAT 99; BMI 29.3
--- NOTE | 2023-12-19 08:03 | MHC.PC.OV ---
Vital Signs 12/19/23 08:03 Height 5 ft Weight 150 lb 4 oz BMI 29.3 BP 122/84 Blood Pressure Location Rt brachial Position Sitting Pulse 82 Pulse Source Pulse Oximeter Pulse Oximetry (%) 99 Oxygen Delivery Method Room Air Intake Visit Reasons: Annual PE Intake Note: Pt is here today for her Annual Physical. Last mammogram 11/10/23 Last colonoscopy 09/23/21 Decline Pap Allergies No Known Allergies Allergy (Verified 12/19/23 08:26) Medication List - Last Reconciled 12/19/23 by Susan Yanez MD cetirizine (All Day Allergy (cetirizine)) 10 mg PO DAILY linaclotide (Linzess) 72 mcg PO QAM montelukast 10 mg PO BEDTIME Tobacco use date assessed: 12/19/23 Dental Screening Dental Screen Date: 12/19/23 Did you have a dental visit in the last 12 months?: No Did you have a dental problem in the last 6 months where you did not have access to dental care?: No Was dental information given to patient?: Patient has dentist HPI Annual PE HPI Details 53-year-old lady here today for physical exam. She is up-to-date with her screening mammogram done earlier this year and had a colonoscopy done in 2020 which showed presence of diverticulosis and internal hemorrhoids, done by Dr. Downs, repeat again in 2030. Patient declined getting cervical cancer screening or pelvic exam, as she states that she already had her partial hysterectomy done in 2003 due to endometrial polyps which came back benign. She has been seen at [facility], for patient was diagnosed to have IBS with constipation placed on Linzess, which has been helping but over the last several weeks she states that the lower dose prescription has stopped helping with regulating her bowel movements, has been advised by the PA to increase dose to 2 tablets but patient did not follow through, wants to do it on her own through adjustment in her diet. She has this chronic pruritic rash on her chest, face arms initially was thought to be contact dermatitis and was placed on montelukast and cetirizine 10 mg daily at night. She has been seen at [facility] and had a skin biopsy done which came back positive for lupus, has an appointment now with Dr. Fitzpatrick at rheumatology clinic in [place] on 01/21/2024 for further evaluation and management. She does experience recurrent pain in her knees, hips and complains of chronic fatigue and foggy headed. She has impaired fasting glucose, has been compliant with healthy eating habits but has not been getting any regular exercise. copy of consult reports/ test and biopsy results requested from both [facility] and [facility] in [place]. [facility] Medical History (Updated 12/19/23 @ 09:17 by Susan Yanez MD) Irritable bowel syndrome with constipation Chronic pruritic rash in adult Lactose intolerance in adult Gallbladder polyp Vitamin D deficiency Impaired fasting glucose Diverticulosis Hemorrhoids Surgical menopause Rectal bleeding External hemorrhoids Seasonal allergies Endometrial polyp Varicose veins of both lower extremities Surgical History History of partial hysterectomy Hx of colonoscopy History of hysteroscopy History of section History of exploratory laparotomy Family History Father Diabetes mellitus HTN (hypertension) Stroke Mother Diabetes mellitus HTN (hypertension) CHF (congestive heart failure) Sister Fibromyalgia Arthritis Maternal Grandfather History of heart attack Maternal Grandmother No problems noted. Paternal Grandfather No problems noted. Paternal Grandmother No problems noted. Brother No problems noted. Brother No problems noted. Sister No problems noted. Sister No problems noted. Son No problems noted. Daughter No problems noted. Daughter No problems noted. Daughter No problems noted. Daughter No problems noted. Daughter No problems noted. Social History Housing: Apartment Alcohol intake: current Alcohol intake frequency: holidays/special occasions only Patient Tobacco Use Status: Never used Tobacco e-Cigarette/Vaping Use: Never Used Second Hand Smoke Exposure: No service: No Current occupational status: employed Cognitive needs: No Hearing needs: No Vision needs: No Questionnaire PHQ-9 Over the last 2 weeks, how often have you been bothered by any of the following problems? 1. Little interest or pleasure in doing things: not at all 2. Feeling down, depressed, or hopeless: not at all 3. Trouble falling or staying asleep, or sleeping too much: several days 4. Feeling tired or having little energy: several days 5. Poor appetite or overeating: several days 6. Feeling bad about yourself - or that you are a failure or have let yourself or your family down: not at all 7. Trouble concentrating on things, such as reading the newspaper or watching television: not at all 8. Moving or speaking so slowly that other people could have noticed. Or the opposite - being so fidgety or restless that you have been moving around a lot more than usual: not at all 9. Thoughts that you would be better off or of hurting yourself in some way: not at all Total score: 3 Depression Screening Interpretation: Negative Depression Screening Done: Yes 03815 - PHQ-9 Billing: Yes Source: Developed by Drs. Kali Gomez, Miryam Rosenthal, Lee Galloway and colleagues, with an educational may from [employer]. Thrive Questionnaire Date Thrive assessed: 12/19/23 I am a: Patient What is your living situation today?: I have a steady place to live Within the past 12 months, did the food you bought not last and you didn't have the money to get more?: Never true Within the past 12 months, did you worry whether your food would run out before you got money to buy more?: Never true Do you have trouble paying for medicines?: No Do you have trouble getting transportation to medical appointments?: No Do you have trouble paying your heating and electricity bill?: No Do you have trouble taking care of your child, family member or friend?: No Do you have trouble with day-to-day activities such as bathing, preparing meals, shopping, managing finances, etc.?: No Are you currently unemployed and looking for a job?: No Are you interested in more education?: No Please select the resources that you would like help with: None Currently or been in a relationship where the following occur: no concerns reported THRIVE Score: 0 AUDIT C Alcohol Use Questionnaire (AUDIT-C) 1. How often do you have a drink containing alcohol?: Monthly or less 2. How many drinks containing alcohol do you have on a typical day when you are drinking?: 1 or 2 3. How often do you have six or more drinks on one occasion?: Never Total Score: 1 Score Reviewed/Action Taken: Yes DIANNA-7 AMB Questionnaire DIANNA-7 Date DIANNA - 7 assessed: 12/19/23 Feeling nervous, anxious, or on edge: 0 = Not at all Not being able to stop or control worryin = Not at all Worrying too much about different things: 0 = Not at all Trouble relaxin = Not at all Being so restless that it is hard to sit still: 0 = Not at all Becoming easily annoyed or irritable: 0 = Not at all Feeling afraid as if something awful might happen: 0 = Not at all Total DIANNA-7 score (0-4 normal; 5-9 mild; 10-14 moderate; 15-21 severe): 0 Source: Developed by Drs. Kali Gomez, Miryam Rosenthal, Lee Galloway and colleagues, with an educational may from [employer]. DIANNA-7 Assessment Billing DIANNA-7 Assessment Tool: DIANNA-7 Assessment 85171 Review of Systems Const Reports body aches, Reports fatigue, Denies headache(s) and Reports lethargy Eyes Details: Has had current eye itching, seen and followed at [facility] Reports no additional complaints, Denies dizziness and Denies headache(s) Card Denies chest pain at rest, Denies chest pain with activity, Denies palpitations and Denies dyspnea Resp Denies cough and Denies dyspnea GI Reports as per HPI, Denies abdominal pain, Denies melena, Denies bloating, Denies hematochezia and Denies heartburn Reports no additional complaints Musc Reports as per HPI, Denies joint swelling and Denies limited range of motion Skin/Breast Reports as per HPI, Denies breast skin changes, Denies breast pain, Denies breast mass and Denies alopecia Neuro Details: Forgetful Denies dizziness and Denies headache(s) Psych Reports no additional complaints Endo Reports fatigue and Denies palpitations [place]/Lymph Denies easy bleeding and Denies easy bruising Aller/Immun Reports seasonal rhinorrhea Physical exam (Primary Care) Vital Signs: Last Vital Signs Pulse 82 12/19/23 08:03 BP 122/84 12/19/23 08:03 Pulse Ox 99 12/19/23 08:03 Oxygen Delivery Method Room Air 12/19/23 08:03 BMI result Body Mass Index 29.3 Tobacco/Smoking Status: Tobacco use Status Tobacco use date assessed 03/06/24 03/06/24 08:07 Patient Tobacco Use Status Never used Tobacco 12/19/23 08:07 e-Cigarette/Vaping Use Never Used 12/19/23 08:07 PHQ-9: PHQ-9 Score PHQ-9: Total score 3 12/19/23 08:48 Depression Screening Interpretation: Negative Thrive Assessment: Date of Thrive Assessment Date Thrive assessed 12/19/23 12/19/23 08:48 Currently or been in a relationship where the following occur: no concerns reported Const General: comfortable, no acute distress and alert Nutritional Appearance: overweight Orientation/consciousness: patient oriented x3 HENMT Mouth: Normal oral and palatal mucosa present, oropharynx normal and moist mucous membranes Eyes General: appearance normal, both eyes and all related structures Periorbital: periorbital findings normal Eyelids: Yes eyelids normal Conjunctivae: conjunctivae normal Sclerae: sclerae normal Pupils: Equal, round and reactive pupils present EOM: EOMs intact bilaterally Neck Neck: Yes full ROM, Yes no lymphadenopathy and Yes supple Thyroid: Thyroid normal Chest Breast/axilla inspection: normal inspection of the breasts Breast/axilla palpation: normal palpation of the breasts Resp Auscultation: clear to auscultation bilaterally Cardio Rate: regular rate Rhythm: regular rhythm Heart sounds: S1 normal heart sound present and S2 normal heart sound present GI Inspection: Yes normal to inspection Palpation (GI): Soft to palpation, nontender, no guarding and no masses General: Yes no CVA tenderness Back/Spine/Pelvis Back: no CVA tenderness Skin Other: Erythematous papular rash on anterior chest, cheeks, arms Neuro General: patient oriented x3, gait normal, moves all extremities, Normal light touch and pain sensation and no focal motor deficits Cranial nerves: Yes Equal, round and reactive pupils present Extrem Other: Slight swelling on ulnar aspect of left wrist, slightly tender to palpation, full range of motion of all joints noted General: Yes full ROM, Yes no joint enlargement, Yes no clubbing, cyanosis or edema and Yes normal gait Psych Appearance: grossly normal and well kempt Mental Status: mental status grossly normal Speech and movement: Normal speech and movement present Affect: normal affect Attitude: cooperative Thought process: Normal thought process present Thought content: Normal thought content present Assessment and Plan Assessment & Plan (1) Surgical menopause: Code(s): E89.40 - Asymptomatic postprocedural ovarian failure Plan: Advised to do regular weight-bearing exercise, start taking embp-[id number] vitamin D3 at 2000 units daily, take adequate calcium from dietary sources. (2) Impaired fasting glucose: Code(s): R73.01 - Impaired fasting glucose Plan: Ordered fasting glucose and hemoglobin A1c levels Impaired glucose metabolism makes you at risk for developing diabetes mellitus type 2, as well as heart attack and stroke later on. Lifestyle changes , healthy eating habits, and regular exercise are important, and can prevent the progression to diabetes (3) Annual visit for general adult medical examination with abnormal findings: Code(s): Z00.01 - Encounter for general adult medical examination with abnormal findings Plan: Will check appropriate labs. Recommended dental visit every 6 months and regular eye exams, goes to [facility] [place]. Take adequate calcium in diet and vitamin-D 3 at 2000 IU per cap once a day, in addition to weight-bearing exercises to help maintain good muscle tone and weight control. Instructed to do self-breast exam, and continue yearly mammogram, currently up-to-date, no longer gets cervical cancer screen, had partial hysterectomy.. Has had COVID vaccines in the past does not want to get booster, declines getting flu shot, due for her repeat tetanus diphtheria booster this year. (4) Irritable bowel syndrome with constipation: Code(s): K58.1 - Irritable bowel syndrome with constipation Plan: Advised to restart taking Linzess again and follow-up with GI if symptoms persists (5) Chronic pruritic rash in adult: Comment: Seen at [facility] and had a skin biopsy which came back positive for lupus Code(s): L29.8 - Other pruritus Plan: Patient states that she had a skin biopsy done at [facility] which came back positive for lupus, patient already has an appointment to see rheumatology clinic in [place] on 01/21/2024 Orders: Orders TSH reflex Free T4 Today E55.9 - Vitamin D deficiency, unspecified, E89.40 - Asymptomatic postprocedural ovarian failure, K82.4 - Cholesterolosis of gallbladder, R73.01 - Impaired fasting glucose, Z00.01 - Encounter for general adult medical examination with abnormal findings, Z13.220 - Encounter for screening for lipoid disorders Vitamin D 25-OH Total Today E55.9 - Vitamin D deficiency, unspecified, E89.40 - Asymptomatic postprocedural ovarian failure, K82.4 - Cholesterolosis of gallbladder, R73.01 - Impaired fasting glucose, Z00.01 - Encounter for general adult medical examination with abnormal findings, Z13.220 - Encounter for screening for lipoid disorders Lipid Panel Today E55.9 - Vitamin D deficiency, unspecified, E89.40 - Asymptomatic postprocedural ovarian failure, K82.4 - Cholesterolosis of gallbladder, R73.01 - Impaired fasting glucose, Z00.01 - Encounter for general adult medical examination with abnormal findings, Z13.220 - Encounter for screening for lipoid disorders Comprehensive [place]. Panel Fast Today E55.9 - Vitamin D deficiency, unspecified, E89.40 - Asymptomatic postprocedural ovarian failure, K82.4 - Cholesterolosis of gallbladder, R73.01 - Impaired fasting glucose, Z00.01 - Encounter for general adult medical examination with abnormal findings, Z13.220 - Encounter for screening for lipoid disorders Complete Blood Count Auto Diff Today E55.9 - Vitamin D deficiency, unspecified, E89.40 - Asymptomatic postprocedural ovarian failure, K82.4 - Cholesterolosis of gallbladder, R73.01 - Impaired fasting glucose, Z00.01 - Encounter for general adult medical examination with abnormal findings, Z13.220 - Encounter for screening for lipoid disorders Hemoglobin A1c Today E55.9 - Vitamin D deficiency, unspecified, E89.40 - Asymptomatic postprocedural ovarian failure, K82.4 - Cholesterolosis of gallbladder, R73.01 - Impaired fasting glucose, Z00.01 - Encounter for general adult medical examination with abnormal findings, Z13.220 - Encounter for screening for lipoid disorders Coding Level of Care Code Est Pt Prev Care 40-64y(27048) Diagnoses Surgical menopause E89.40 Impaired fasting glucose R73.01 Annual visit for general adult medical examination with abnormal findings Z00.01 Irritable bowel syndrome with constipation K58.1 Chronic pruritic rash in adult L29.8 Additional Codes DIANNA-7 Assessment Billing - DIANNA-7 Assessment Tool: DIANNA-7 Assessment 44039 ([id number])
== END 2023-12-19 09:00 | disposition home or self-care (01) ==
PROVIDERS: Visit Provider Internal Medicine
DX: Z00.00 Encounter for general adult medical examination without abnormal findings (principal); E89.40 Asymptomatic postprocedural ovarian failure; R73.01 Impaired fasting glucose; K58.1 Irritable bowel syndrome with constipation; L29.8 Other pruritus
CPT/HCPCS: 99396

== ENCOUNTER 2023-12-19 08:57 | Outpatient (REF) | payer BC, SELFPAY ==
[2023-12-19 11:11] LABS: MANUAL DIFF FLAG NO
[2023-12-19 11:13] LABS: Basophils Percent Auto 0.8 % (0-2); Eosinophils Absolute Auto 0.1 X10*3/uL (0.0-0.4); Eosinophils Percent Auto 1.9 % (0-4); Hematocrit 44.5 % (37.0-47.0); Hemoglobin 15.2 g/dl (12.0-16.0); Imm Gran Abs Auto 0.02 X10*3/uL (0.00-0.03); Imm Gran Pct Auto 0.4 % (0.0-0.4); Lymphocytes Absolute Auto 1.7 X10*3/uL (1.2-4.9); Mean Corpuscular HGB Conc 34.2 g/dl (31.0-35.0); Mean Corpuscular Hemoglobin 29.3 pg (27.0-33.0); Mean Corpuscular Volume 85.9 fL (80.0-98.0); Mean Platelet Volume 11.5 fL (9.4-12.3); Monocytes Absolute Auto 0.4 X10*3/uL (0.1-1.2); Monocytes Percent Auto 8.5 % (2-11); Neutrophils Absolute Auto 2.5 x10*3/uL (2.0-8.3); Neutrophils Percent Auto 52.4 % (45-73); Platelet Count 217 X10*3/uL (160-400); Red Blood Count 5.18 X10*6/uL (4.20-5.50); Red Cell Distribution Width 11.8 % (11.0-16.0); White Blood Count 4.8 X10*3/uL (4.8-10.8)
[2023-12-19 11:22] LABS: Estimated Average Glucose 131 mg/dL; Hemoglobin A1c % 6.2 % (<6.0)
[2023-12-19 13:41] LABS: Alanine Aminotransferase 25 U/L (0-31); Albumin Level 4.5 g/dL (3.5-5.0); Alkaline Phosphatase 89 U/L (39-117); Anion Gap 9 (12-20); Aspartate Amino Transferase 29 U/L (5-31); Bilirubin Total 0.4 mg/dL (0.0-1.0); Blood Urea Nitrogen 13 mg/dL (9-16); Calcium 9.8 mg/dL (8.4-10.2); Carbon Dioxide 29 mmol/L (22-29); Chloride 103 mmol/L (96-108); Cholesterol 187 mg/dL (<200); Estimated Glomerular Filt Rate > 60; Glucose Fasting 132 mg/dL (60-99); HDL Cholesterol 56 mg/dL (>40); LDL Cholesterol Calculated 109 mg/dL (<100); Sodium 137 mmol/L (135-145); TSH reflex Free T4 4.04 uIU/mL (0.32-4.0); Total Protein 7.7 g/dL (6.5-8.0); Triglycerides 113 mg/dL (<150); Vitamin D 25-OH Total 53.5 ng/mL (>30)
[2023-12-19 14:19] LABS: Free T4 (Free Thyroxine) 0.79 ng/dL (0.71-1.85)
== END 2023-12-19 08:58 | disposition home or self-care (01) ==
LOC: HO.HMGCLDS 08:57
PROVIDERS: PCP Internal Medicine; Visit Provider Internal Medicine
DX: Z00.01 Encounter for general adult medical examination with abnormal findings (principal); Z13.220 Encounter for screening for lipoid disorders; Z13.6 Encounter for screening for cardiovascular disorders; E89.40 Asymptomatic postprocedural ovarian failure; R73.01 Impaired fasting glucose; E55.9 Vitamin D deficiency, unspecified; K82.4 Cholesterolosis of gallbladder
CPT/HCPCS: 36415; 80053; 80061; 82306; 83036; 84439; 84443; 85025

== ENCOUNTER 2024-01-21 08:33 | Outpatient (AMB) | payer BC, SELFPAY ==
[2024-01-21 08:42] VITALS: BP 132/64; PULSE 81; O2SAT 99; BMI 29.1
--- NOTE | 2024-01-21 08:42 | A.OFFVIS_ITS ---
Intake Vital Signs 3 01/21/24 08:42 Height 5 ft Weight 149 lb 4.047 oz BMI 29.1 BP 132/64 Blood Pressure Location Rt brachial Position Sitting Pulse 81 Pulse Source Pulse Oximeter Pulse Oximetry (%) 99 Oxygen Delivery Method Room Air Intake Visit Reasons: + ERIN/lm Intake Note: New patient presents today for +ERIN consult, referred by [facility] H[facility] Du C/o facial rash itchy, then started to spread Symptoms started approx Fall of 2021 Has tried creams and ointments but did not work Reports she also sees Dr Blair GI bloating/discomfort [employer] Ro[employer]er Required: No Accompanied by: Self / Same As Patient Allergies No Known Allergies Allergy (Verified 01/21/24 08:44) Medication List - Last Reconciled 01/21/24 by Salvador Hyman MD cetirizine (All Day Allergy (cetirizine)) 10 mg PO DAILY linaclotide (Linzess) 72 mcg PO QAM montelukast 10 mg PO BEDTIME HPI HPI Comments 2 History of Present Illness0 Details This is a 53-year-old female who presents for evaluation of positive ERIN context of a skin rash. The condition started back in 2021 when patient noticed bloating. She was evaluated by her PCP and blood work was done and was told that it is not consistent with celiac disease however patient started cutting down on gluten with improved symptoms. She eventually was evaluated by head teller and had a colonoscopy and was told that she has diverticulosis. Patient denied having an endoscopy She was advised to continue with avoiding gluten and lactose. When following this diet, patient's symptoms with improved. In the fall of 2022 she started having rashes on her forehead, cheeks, neck and chest. Skin biopsy was not specific but 1 of the differential diagnoses was lupus. She had been treated with topical steroids and tacrolimus with little relief. Systemic steroid taper was very effective. She used to have rashes on her face, neck, chest and hands. She states that she feels her joints are stiff particularly her knees. Denies any swelling. She stated that for about 20 years she has had swelling on the outer aspect of her left wrist. It is not particularly painful. She denies any swollen joints. Denies any history of DVT/PE. Denies mouth ulcers. Denies any blood or frothy urine. States that her maternal aunt has rheumatoid arthritis. Patient had 7 pregnancies in total, 6 children and 1 miscarriage. [facility], [facility] Medical History Irritable bowel syndrome with constipation Chronic pruritic rash in adult Lactose intolerance in adult Gallbladder polyp Vitamin D deficiency Impaired fasting glucose Diverticulosis Hemorrhoids Surgical menopause Rectal bleeding External hemorrhoids Seasonal allergies Endometrial polyp Varicose veins of both lower extremities Surgical History History of partial hysterectomy Hx of colonoscopy History of hysteroscopy History of section History of exploratory laparotomy Family History Father Diabetes mellitus HTN (hypertension) Stroke Mother Diabetes mellitus HTN (hypertension) CHF (congestive heart failure) Sister Fibromyalgia Arthritis Maternal Grandfather History of heart attack Maternal Grandmother No problems noted. Paternal Grandfather No problems noted. Paternal Grandmother No problems noted. Brother No problems noted. Brother No problems noted. Sister No problems noted. Sister No problems noted. Son No problems noted. Daughter No problems noted. Daughter No problems noted. Daughter No problems noted. Daughter No problems noted. Daughter No problems noted. 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 Cognitive needs: No Hearing needs: No Vision needs: No Female Reproductive History Menstrual Total pregnancies: 7 Full term: 6 Ab spontaneous: 1 Review of Systems Const Denies fever(s) and Reports weakness Card Reports no additional complaints Musc Denies arthralgias, Reports joint swelling and Reports stiffness Skin/Breast Reports erythema and Reports rash Neuro Reports weakness Physical Exam Vital Signs: Last Vital Signs Pulse 81 01/21/24 08:42 BP 132/64 01/21/24 08:42 Pulse Ox 99 01/21/24 08:42 Oxygen Delivery Method Room Air 01/21/24 08:42 BMI result Body Mass Index 29.1 Const General: cooperative, healthy appearing and comfortable Nutritional Appearance: overweight Orientation/consciousness: patient oriented x3 Limitations: no limitations HEENT Head: Yes normocephalic and Yes atraumatic Resp Effort & Inspection: normal respiratory effort and able to speak in complete sentences Auscultation: clear to auscultation bilaterally Cardio Rate: regular rate Rhythm: regular rhythm Skin Other: Neuro General: patient oriented x3 Extrem Other: Mild soft tissue swelling on the outer aspect of left wrist but no active synovitis Erythematous nail folds diffusely Nailfold capillaroscopy shows: Few dilated loops on right 4th finger Results Reviewed Results Reviewed: Labs 11/2023? ERIN 1-80 speckled Chest skin biopsy 10/2023 Superficial and mild dermal perivascular dermatitis Note:? The biopsy contains a superficial and deep perivascular inflammatory infiltrate of lymphocytes.? Eosinophils are inconspicuous.? S subtle spongiosis is noted? The histologic findings are not specific.? Differential diagnosis would have to include a resolving dermal hypersensitivity response as well as a nonspecific phase of a connective tissue disease such as lupus.? Clinical correlation is advised Assessment & Plan Assessment & Plan (1) ERIN positive: Code(s): R76.8 - Other specified abnormal immunological findings in serum Plan: This is a 53-year-old female who presents for evaluation of positive ERIN in the context of rashes on face, chest, forearms. Labs showed a positive ERIN. Will order comprehensive serology to screen for underlying autoimmune rheumatic disease. Start prednisone therapeutic trial Follow-up in 4 weeks Plan I spent 47 minutes reviewing patient's chart, evaluating patient, ordering diagnostic workup, counseling patient and documenting in the chart Orders: Orders 2 ERIN Reflex Titer and Pattern Today M32.9 - Systemic lupus erythematosus, unspecified Anti Extractable Nuclear Ag Today M32.9 - Systemic lupus erythematosus, unspecified Anti DNA DS Antibody Today M32.9 - Systemic lupus erythematosus, unspecified Complement C4 Today M32.9 - Systemic lupus erythematosus, unspecified C Reactive Protein Today M32.9 - Systemic lupus erythematosus, unspecified Immunofixation Pnl, Serum Today M32.9 - Systemic lupus erythematosus, unspecified Protein Electrophoresis, Serum Today M32.9 - Systemic lupus erythematosus, unspecified Rheumatoid Factor Today M25.50 - Pain in unspecified joint Cyclic Citrullinated Peptide Today M25.50 - Pain in unspecified joint Endomysial IgA rflx Titer Today K90.0 - Celiac disease Immunoglobulin A Today K90.0 - Celiac disease Transglutaminase Ab IgG Today K90.0 - Celiac disease Complement C3 Today M32.9 - Systemic lupus erythematosus, unspecified DNA Double Stranded-Crithidia Today M32.9 - Systemic lupus erythematosus, unspecified Erythrocyte Sedimentation Rate Today M32.9 - Systemic lupus erythematosus, unspecified Protein Creatinine Ratio, Ur Today M32.9 - Systemic lupus erythematosus, unspecified Sjogren's Antibodies Today M32.9 - Systemic lupus erythematosus, unspecified UA w Microscopic Today M32.9 - Systemic lupus erythematosus, unspecified Complete Blood Count Auto Diff Today M32.9 - Systemic lupus erythematosus, unspecified Comprehensive Met. Panel Today M32.9 - Systemic lupus erythematosus, unspecified Hepatitis A,B,C Profile Today M32.9 - Systemic lupus erythematosus, unspecified Medications: New 2 prednisone Take 4 tabs daily for 1 week, 3 tabs daily for 1 week, 2 tabs daily for 1 week, 1 tab daily for 1 week then stop 70 tabs 0RF Coding Level of Care Code New Pt Level 4 (48743) Diagnoses ERIN positive R76.8
== END 2024-01-21 09:28 | disposition home or self-care (01) ==
PROVIDERS: PCP Internal Medicine; Visit Provider Student in an Organized Health Care Education/Training Program
DX: R76.8 Other specified abnormal immunological findings in serum (principal)
CPT/HCPCS: 99204

== ENCOUNTER → 2024-01-21 08:33 | Outpatient (BNVA) | payer BC, SELFPAY | PROVIDERS: PCP Internal Medicine; Visit Provider Student in an Organized Health Care Education/Training Program ==

== ENCOUNTER 2024-01-21 09:33 | Outpatient (REF) | payer BC, SELFPAY ==
[2024-01-21 10:29] LABS: Appearance Urine Clear; Color Urine Yellow; Glucose Urine UA Negative (Negative); Leukocyte Esterase Urine Trace (Negative); Nitrite Urine Negative (Negative); PH 6.5 (5.0-9.0); Specific Gravity - Urine <= 1.005 (1.005-1.025); UMIC TRIGGER UA YES; Urine Blood Negative (Negative); Urine Ketones Negative (Negative); Urine Protein Negative (Neg-Trace)
[2024-01-21 10:31] LABS: Bacteria Urine None Seen (None Seen); Hyaline Casts Urine 0-2 /LPF (0-2); MANUAL DIFF FLAG NO; RBC Urine 0-2 /HPF (0-2); Squamous Epithelial Cell Urine 0-2 /HPF (0-2); WBC Urine 0-5 /HPF (0-5)
[2024-01-21 10:49] LABS: Basophils Percent Auto 0.9 % (0-2); Eosinophils Absolute Auto 0.1 X10*3/uL (0.0-0.4); Eosinophils Percent Auto 2.9 % (0-4); Hematocrit 43.6 % (37.0-47.0); Hemoglobin 14.9 g/dl (12.0-16.0); Imm Gran Abs Auto 0.02 X10*3/uL (0.00-0.03); Imm Gran Pct Auto 0.4 % (0.0-0.4); Lymphocytes Absolute Auto 1.2 X10*3/uL (1.2-4.9); Lymphocytes Percent Auto 26.1 % (20-40); Mean Corpuscular HGB Conc 34.2 g/dl (31.0-35.0); Mean Corpuscular Hemoglobin 29.8 pg (27.0-33.0); Mean Corpuscular Volume 87.2 fL (80.0-98.0); Mean Platelet Volume 11.5 fL (9.4-12.3); Monocytes Absolute Auto 0.5 X10*3/uL (0.1-1.2); Monocytes Percent Auto 10.5 % (2-11); Neutrophils Absolute Auto 2.7 x10*3/uL (2.0-8.3); Neutrophils Percent Auto 59.2 % (45-73); Platelet Count 230 X10*3/uL (160-400); White Blood Count 4.6 X10*3/uL (4.8-10.8)
[2024-01-21 11:12] LABS: Rheumatoid Factor < 13.0 IU/mL (<15.0)
[2024-01-21 11:19] LABS: Alanine Aminotransferase 30 U/L (0-31); Albumin Level 4.7 g/dL (3.5-5.0); Alkaline Phosphatase 87 U/L (39-117); Anion Gap 10 (12-20); Aspartate Amino Transferase 33 U/L (5-31); Bilirubin Total 0.4 mg/dL (0.0-1.0); Blood Urea Nitrogen 9 mg/dL (9-16); C Reactive Protein 0.39 mg/dL (< or = 0.50); Calcium 10.1 mg/dL (8.4-10.2); Carbon Dioxide 31 mmol/L (22-29); Chloride 105 mmol/L (96-108); Estimated Glomerular Filt Rate > 60; Glucose Random 118 mg/dL (60-115); Potassium 4.1 mmol/L (3.3-5.1); Sodium 142 mmol/L (135-145); Total Protein 7.8 g/dL (6.5-8.0)
[2024-01-21 11:28] LABS: HBS Num1 1.97 mIU/mL (0-7.99); HBc Num1 0.39 S/CO (0.00-0.79); HBsAGNum1 0.36 S/CO (0.00-0.99); Hepatitis B Core Antibody Nonreactive (Nonreactive); Hepatitis B Surface Antigen Negative (Negative); ~Hepatitis A Antibody IgM Nonreactive (Nonreactive); ~Hepatitis B Surface Antibody NONREACTIVE (Nonreactive); ~Hepatitis C Antibody Nonreactive (Nonreactive)
[2024-01-21 11:34] LABS: Erythrocyte Sedimentation Rate 6 MM/HR (0-20)
[2024-01-21 11:37] LABS: Creatinine Urine 18.98 mg/dL; Total Protein Urine Random < 7 mg/dL (<12)
[2024-01-22 11:58] LABS: Complement C3 143 mg/dL (83-193)
[2024-01-22 13:33] LABS: Transglutaminase Ab IgG <1.0 U/mL
[2024-01-23 11:03] LABS: Cyclic Citrullinated Peptide <16 UNITS
[2024-01-23 13:18] LABS: Prot Elec - Albumin 4.8 g/dL (3.8-4.8); Prot Elec - Alpha1 0.2 g/dL (0.2-0.3); Prot Elec - Alpha2 0.6 g/dL (0.5-0.9); Prot Elec - Beta 1 0.5 g/dL (0.4-0.6); Prot Elec - Beta 2 0.4 g/dL (0.2-0.5); Prot Elec - Gamma 1.1 g/dL (0.8-1.7); Prot Elec - Total Protein 7.5 g/dL (6.1-8.1)
[2024-01-23 15:13] LABS: Anti DNA DS Antibody 1 IU/mL; Antibody to SS-A Antigen <1.0 NEG AI (<1.0 NEG); Antibody to SS-B Antigen <1.0 NEG AI (<1.0 NEG); SM/Ribonucleoprotein Ab <1.0 NEG AI (<1.0 NEG); Smith Protein <1.0 NEG AI (<1.0 NEG)
[2024-01-24 12:28] LABS: IgA 212 mg/dL (47-310); IgG 1201 mg/dL (600-1640); IgM 133 mg/dL (50-300)
[2024-01-24 15:07] LABS: Anti Nuclear Antibody Pattern Nuclear, Speckled; Anti Nuclear Antibody Screen POSITIVE (NEGATIVE); Anti Nuclear Antibody Titer 1:40 titer
[2024-01-25 10:48] LABS: Endomysial IgA Antibody Negative (Negative)
[2024-01-26 00:05] LABS: DNAds, Crithidia Antibody Negative (Negative)
[2024-01-29 15:33] LABS: Cytosolic 5'nuc 1A Ab IgG <5 Units; Ej Ab <11 SI (<11); HMGCR Ab IgG <2 CU (<20); Jo-1 Ab <11 SI (<11); MDA5 Ab <11 SI (<11); Mi-2 alpha Ab <11 SI (<11); Mi-2 beta Ab <11 SI (<11); NXP-2 (MJ) Ab <11 SI (<11); Oj Ab <11 SI (<11); Pl-12 Ab <11 SI (<11); Pl-7 Ab <11 SI (<11); SRP Ab <11 SI (<11); TIF1 gamma Ab 117 SI (<11)
[2024-02-04 15:18] LABS: Centromere Protein A Ab <11 SI (<11); Centromere Protein B Ab <11 SI (<11); Fibrillarin Ab <11 SI (<11); PM SCL 100 Ab <11 SI (<11); PM SCL 75 Ab <11 SI (<11); RNA Polymerase III RP11 Ab <11 SI (<11); RNA Polymerase III RP155 Ab <11 SI (<11); SCL-70 Extractable Nuclear Ab <11 SI (<11); Th-To Ab <11 SI (<11); U1 SNRNP RNP 70KD <11 SI (<11); U1 SNRNP RNP A <11 SI (<11); U1 SNRNP RNP C <11 SI (<11)
== END 2024-01-21 09:34 | disposition home or self-care (01) ==
LOC: HO.10HDL 09:33
PROVIDERS: Visit Provider Student in an Organized Health Care Education/Training Program
DX: M32.9 Systemic lupus erythematosus, unspecified (principal); M25.50 Pain in unspecified joint; M34.9 Systemic sclerosis, unspecified; K90.0 Celiac disease
CPT/HCPCS: 36415; 80053; 81001; 82570; 82784; 83516; 83520; 84156; 84165; 84182; 85025; 85652; 86038; 86039; 86140; 86160; 86200; 86225; 86231; 86235; 86255; 86334; 86364; 86431; 86704; 86706; 86709; 86803; 87340

== ENCOUNTER 2024-02-13 08:19 | Outpatient (AMB) | payer BC, SELFPAY ==
[2024-02-13 08:27] VITALS: BP 110/75; PULSE 72; TEMP 36.6; BMI 28.8
--- NOTE | 2024-02-13 08:27 | A.OFFVIS_ITS ---
Vital Signs 02/13/24 08:27 Height 5 ft Weight 147 lb 11.355 oz BMI 28.8 BP 110/75 Blood Pressure Location Rt brachial Position Sitting Pulse 72 Pulse Source Palpation Temp 97.9 F Temp Source Temporal Artery Scan Intake Visit Reasons: Cutaneous Lupus Allergies No Known Allergies Allergy (Verified 01/21/24 08:44) Medication List - Last Reconciled 02/13/24 by Salvador Hyman MD cetirizine (All Day Allergy (cetirizine)) 10 mg PO DAILY linaclotide (Linzess) 72 mcg PO QAM montelukast 10 mg PO BEDTIME HPI Comments Details: Patient returns for follow-up after completion of her diagnostic workup. States that the prednisone did help the rashes, the rashes are less itchy. The rashes on her forearms are a little bit worse and are photosensitive, sometimes burn. She denies any muscle weakness. Denies any fevers, night sweats or weight loss. Initial history: This is a 53-year-old female who presents for evaluation of positive ERIN context of a skin rash. The condition started back in 2021 when vishnu almeida noticed bloating. She was evaluated by her PCP and blood work was done and was told that it is not consistent with celiac disease however patient started cutting down on gluten with improved symptoms. She eventually was evaluated by housecalls nurse and had a colonoscopy and was told that she has diverticulosis. Patient denied having an endoscopy She was advised to continue with avoiding gluten and lactose. When following this diet, patient's symptoms with improved. In the fall of 2022 she started having rashes on her forehead, cheeks, neck and chest. Skin biopsy was not specific but 1 of the differential diagnoses was lupus. She had been treated with topical steroids and tacrolimus with little relief. Systemic steroid taper was very effective. She used to have rashes on her face, neck, chest and hands. She states that she feels her joints are stiff particularly her knees. Denies any swelling. She stated that for about 20 years she has had swelling on the outer aspect of her left wrist. It is not particularly painful. She denies any swollen joints. Denies any history of DVT/PE. Denies mouth ulcers. Denies any blood or frothy urine. States that her maternal aunt has rheumatoid arthritis. Patient had 7 pregnancies in total, 6 children and 1 miscarriage. [facility] Medical History ERIN positive Irritable bowel syndrome with constipation Chronic pruritic rash in adult Lactose intolerance in adult Gallbladder polyp Vitamin D deficiency Impaired fasting glucose Diverticulosis Hemorrhoids Surgical menopause Rectal bleeding External hemorrhoids Seasonal allergies Endometrial polyp Varicose veins of both lower extremities Surgical History History of partial hysterectomy Hx of colonoscopy History of hysteroscopy History of section History of exploratory laparotomy Family History Father Diabetes mellitus HTN (hypertension) Stroke Mother Diabetes mellitus HTN (hypertension) CHF (congestive heart failure) Sister Fibromyalgia Arthritis Maternal Grandfather History of heart attack Maternal Grandmother No problems noted. Paternal Grandfather No problems noted. Paternal Grandmother No problems noted. Brother No problems noted. Brother No problems noted. Sister No problems noted. Sister No problems noted. Son No problems noted. Daughter No problems noted. Daughter No problems noted. Daughter No problems noted. Daughter No problems noted. Daughter No problems noted. 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 Cognitive needs: No Hearing needs: No Vision needs: No Female Reproductive History Menstrual Total pregnancies: 7 Full term: 6 Ab spontaneous: 1 Review of Systems Const Reports fatigue, Denies fever(s), Denies weakness and Denies weight loss Musc Denies muscle weakness Skin/Breast Reports erythema, Reports photosensitivity and Reports rash Neuro Denies weakness Endo Reports fatigue Physical Exam Const General: cooperative, healthy appearing and comfortable Nutritional Appearance: overweight Orientation/consciousness: patient oriented x3 Limitations: no limitations HEENT Head: Yes normocephalic and Yes atraumatic Resp Effort & Inspection: normal respiratory effort and able to speak in complete sentences Cardio Rate: regular rate Rhythm: regular rhythm Neuro General: patient oriented x3 Extrem Other: no active synovitis Proximal muscle strength 5/5 all 4 extremities Erythematous nail folds diffusely Nailfold capillaroscopy shows: Few dilated loops on right 4th finger Results Reviewed Results Reviewed: Labs 11/2023? ERIN 1-80 speckled Chest skin biopsy 10/2023 Superficial and mild dermal perivascular dermatitis Note:? The biopsy contains a superficial and deep perivascular inflammatory infiltrate of lymphocytes.? Eosinophils are inconspicuous.? S subtle spongiosis is noted? The histologic findings are not specific.? Differential diagnosis would have to include a resolving dermal hypersensitivity response as well as a nonspecific phase of a connective tissue disease such as lupus.? Clinical correlation is advised Assessment & Plan Assessment & Plan (1) Dermatomyositis: Comment: dx 02/2024 (photosensitive skin rashes (biopsy proven), +dilated nailfold capillaroscopy, + ERIN +++TIF-1 Gamma) Code(s): M33.13 - Other dermatomyositis without myopathy Category: Medical Plan: This is a 53-year-old female who presents for evaluation of photosensitive rashes on face, arms much chest. Skin biopsy consistent with connective tissue disorder. On exam she has skin rashes in a photosensitive distribution, dilated nailfold capillaroscopy. Labs show a positive ERIN and positive R121-NDZ-0 Gamma antibody. Picture consistent with new onset dermatomyositis. There is no muscle weakness on exam. Today we had a long conversation about her diagnosis and its association with underlying malignancy. Will check muscle enzymes. Discussed nature of dermatomyositis skin rashes. Advised patient to avoid the sun and use long sleeves, long had. use sunscreen regularly. Discussed risks and benefits of hydroxychloroquine. Start hydroxychloroquine 100 mg Twice daily x5 days a week and 200 mg daily x2 days a week Follow-up in about 6 weeks (2) Cancer screening: Code(s): Z12.9 - Encounter for screening for malignant neoplasm, site unspecified Category: Medical Plan: Discussed dermatomyositis and its association of skin cancer. We discussed age appropriate malignancy screening. Patient had a colonoscopy within the last 2 years which only showed diverticulosis. Mammogram was done 10/2023 showed BI-RADS 1. Ultrasound pelvis 10/2022, was not suggestive of malignancy. Patient is considered high risk for malignancy given dermatomyositis, positive TIF-1 gamma antibody & onset after age 40. According to the International guidelines for idiopathic inflammatory myopathy associated cancer screening, patient should get a PET scan to evaluate for underlying malignancy. PET scan ordered (3) Long-term use of hydroxychloroquine: Code(s): Z79.899 - Other middle or intermediate school principal (current) drug therapy Category: Medical Plan: Discussed risks and benefits of hydroxychloroquine. Discussed risk of retinopathy. Patient will make an appointment with her lithographic general worker Plan I spent 52 minutes reviewing patient's chart, evaluating patient, ordering diagnostic workup, counseling patient and documenting in the chart Orders: Orders Gamma Glutamyl Transpeptidase Today M33.13 - Other dermatomyositis without myopathy Comprehensive Met. Panel Today M33.13 - Other dermatomyositis without myopathy C Reactive Protein Today M33.13 - Other dermatomyositis without myopathy Creatine Kinase Total Today M33.13 - Other dermatomyositis without myopathy Aldolase Today M33.13 - Other dermatomyositis without myopathy Lactate Dehydrogenase Today M33.13 - Other dermatomyositis without myopathy PET CT fusion skull to thigh Today Z12.9 - Encounter for screening for malignant neoplasm, site unspecified Medications: New hydroxychloroquine Take 1 tab twice daily x5 days a week and 1 tab daily x2 days a week 144 tabs 0RF Coding Level of Care Code Est Pt Level 5 (39732) Diagnoses Dermatomyositis M33.13 Cancer screening Z12.9 Long-term use of hydroxychloroquine Z79.899
== END 2024-02-13 08:46 | disposition home or self-care (01) ==
PROVIDERS: PCP Internal Medicine; Visit Provider Student in an Organized Health Care Education/Training Program
DX: M33.13 Other dermatomyositis without myopathy (principal); Z12.9 Encounter for screening for malignant neoplasm, site unspecified; Z79.899 Other long term (current) drug therapy
CPT/HCPCS: 99215

== ENCOUNTER 2024-02-13 08:19 | Outpatient (REF) | payer BC, SELFPAY | END 2024-02-13 08:20 | disposition home or self-care (01) | LOC: HO.LAB 08:19 | PROVIDERS: PCP Internal Medicine; Visit Provider Student in an Organized Health Care Education/Training Program | DX: Z13.89 Encounter for screening for other disorder (principal) ==

== ENCOUNTER 2024-02-13 08:52 | Outpatient (REF) | payer BC, SELFPAY ==
[2024-02-13 11:43] LABS: Albumin Level 4.4 g/dL (3.5-5.0); Alkaline Phosphatase 81 U/L (39-117); Bilirubin Total 0.9 mg/dL (0.0-1.0); Calcium 9.5 mg/dL (8.4-10.2); Carbon Dioxide 25 mmol/L (22-29); Chloride 104 mmol/L (96-108); Estimated Glomerular Filt Rate > 60; Glucose Random 111 mg/dL (60-115); Sodium 139 mmol/L (135-145); Total Protein 7.4 g/dL (6.5-8.0)
[2024-02-19 05:59] LABS: Thyroglobulin Antibodies 13 IU/mL (< or = 1); Thyroid Peroxidase Antibodies 596 IU/mL (<9)
[2024-02-22 22:43] LABS: Aldolase 5.3 U/L (<=8.1)
== END 2024-02-13 08:53 | disposition home or self-care (01) ==
LOC: HO.10HDL 08:52
PROVIDERS: Visit Provider Student in an Organized Health Care Education/Training Program
DX: M33.13 Other dermatomyositis without myopathy (principal); E07.9 Disorder of thyroid, unspecified
CPT/HCPCS: 36415; 80053; 82085; 82550; 82977; 83615; 86140; 86376; 86800

== ENCOUNTER 2024-02-16 10:04 | Outpatient (AMB) | payer BC, SELFPAY ==
[2024-02-16 10:06] VITALS: BP 130/78; PULSE 72; TEMP 36.7; O2SAT 98
--- NOTE | 2024-02-16 10:06 | AM.OFFWIN_ITS ---
Intake Vital Signs 02/16/24 10:06 Height 5 ft BP 130/78 Blood Pressure Location Rt brachial Position Sitting Pulse 72 Pulse Source Pulse Oximeter Temp 98.0 F Temp Source Oral Pulse Oximetry (%) 98 Oxygen Delivery Method Room Air Intake Visit Reasons: EP short of breath cough fatigue Intake Note: pt is here for cough with shortness of breath, and patient is experiencing fatigue and coughing up yellow/brown phlem Patient Tobacco Use Status: Never used Tobacco Allergies No Known Allergies Allergy (Verified 02/16/24 10:09) Do you need a note to return to daycare/school/sports/work: No HPI HPI Comments History of Present Illness Details This is a 53-year-old female with a past medical history of asthma, seasonal allergies, dermatomyositis and IBS presenting for evaluation of rhinorrhea, cough and shortness of breath that started yesterday. Patient states that her symptoms coincided with the air-conditioning being turned off at her place of employment. The patient denies having any fevers, chills, ear pain, chest pain or hemoptysis. Patient has not taken any medication for treatment of her symptoms and denies any sick contacts. Patient takes cetirizine and Singulair daily. [facility] Medical History ERIN positive Irritable bowel syndrome with constipation Chronic pruritic rash in adult Lactose intolerance in adult Gallbladder polyp Vitamin D deficiency Impaired fasting glucose Diverticulosis Hemorrhoids Surgical menopause Rectal bleeding External hemorrhoids Seasonal allergies Endometrial polyp Varicose veins of both lower extremities Surgical History History of partial hysterectomy Hx of colonoscopy History of hysteroscopy History of section History of exploratory laparotomy Family History Father Diabetes mellitus HTN (hypertension) Stroke Mother Diabetes mellitus HTN (hypertension) CHF (congestive heart failure) Sister Fibromyalgia Arthritis Maternal Grandfather History of heart attack Maternal Grandmother No problems noted. Paternal Grandfather No problems noted. Paternal Grandmother No problems noted. Brother No problems noted. Brother No problems noted. Sister No problems noted. Sister No problems noted. Son No problems noted. Daughter No problems noted. Daughter No problems noted. Daughter No problems noted. Daughter No problems noted. Daughter No problems noted. 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 Cognitive needs: No Hearing needs: No Vision needs: No Review of Systems Const All systems reviewed & are unremarkable except as noted in HPI and below Reports no additional complaints, Denies chills and Denies fever(s) Eyes Reports no additional complaints ENT Reports post nasal drip and Reports other (Rhinorrhea) Card Reports no additional complaints, Reports dyspnea and Denies dyspnea on exertion Resp Reports cough, Denies hemoptysis, Reports dyspnea, Denies dyspnea on exertion and Denies wheezing Musc Reports no additional complaints Skin/Breast Reports system reviewed and no additional complaints, except as documented Neuro Reports no additional complaints Aller/Immun Reports seasonal rhinorrhea and Denies wheezing Physical Exam Vital Signs: Last Vital Signs Temp 98.0 F 02/16/24 10:06 Pulse 72 02/16/24 10:06 BP 130/78 02/16/24 10:06 Pulse Ox 98 02/16/24 10:06 Oxygen Delivery Method Room Air 02/16/24 10:06 Afebrile, oxygenation is 98% on room air. Const General: cooperative, healthy appearing, comfortable, no acute distress, well developed, alert and awake; No acute distress, ill appearing or lethargic Nutritional Appearance: average body habitus Orientation/consciousness: patient oriented x3 and No lethargic Limitations: no limitations HEENT Head: Yes normal to inspection and Yes normocephalic Ears: hearing grossly normal bilaterally, external ears normal, TM's normal bilaterally and EAC's normal General nose exam: Normal external nose present Face and sinus: Yes normal facial exam Mouth: Normal oral and palatal mucosa present and moist mucous membranes Throat: No posterior oropharynx normal, Yes tonsils normal, Yes uvula midline, Yes postnasal drainage and Yes other (There is no erythema, edema or exudates of the posterior oropharynx.) Eyes General: appearance normal, both eyes and all related structures EOM: EOMs intact bilaterally Neck Lymphatic: no lymphadenopathy noted Resp Effort & Inspection: normal respiratory effort, able to speak in complete sentences, no audible wheezes, no cough and respiratory effort not decreased Auscultation: clear to auscultation bilaterally Cardio Rate: regular rate Rhythm: regular rhythm Skin General skin exam: no rashes or lesions noted Neuro General: patient oriented x3 Psych Appearance: grossly normal Mental Status: mental status grossly normal Insight: Good insight present (Psych) Judgement: Good judgement present (Psych) Assessment & Plan Assessment & Plan (1) Upper respiratory infection, acute: Comment: Patient is afebrile and in no acute distress. Chest x-ray is not indicated at this time given her history coupled with her physical examination. Code(s): J06.9 - Acute upper respiratory infection, unspecified Plan: Mucinex OTC with increased clear fluids daily. Follow-up with PCP in 7-10 days if symptoms do not resolve, sooner if symptoms worsen. Coding Level of Care Code Est Pt Level 3 (95752) Diagnoses Upper respiratory infection, acute J06.9 Time Spent (min) 20
== END 2024-02-16 10:22 | disposition home or self-care (01) ==
PROVIDERS: PCP Internal Medicine; Visit Provider Physician Assistant
DX: J06.9 Acute upper respiratory infection, unspecified (principal)
CPT/HCPCS: 99213

== ENCOUNTER 2024-02-20 19:25 | Inpatient (IN) | payer BC, SELFPAY ==
--- NOTE | ~2024-02-20 | XR_ITS ---
EXAMINATION: XR CHEST CLINICAL INFORMATION: Chest pain COMPARISON: None available. TECHNIQUE: Frontal view of the chest was obtained. FINDINGS: No significant abnormality is noted involving the heart, lungs, mediastinum, bony thorax or soft tissues. XR/XR chest 1V IMPRESSION: Unremarkable examination.
--- NOTE | 2024-02-20 19:33 | ED.GENADULT ---
HPI - General Adult General Chief complaint: Neuro Symptoms/Deficit Stated complaint: uncontrollable shaking, seen at [facility] [place] for similar Time Seen by Provider: 02/20/24 21:10 Source: patient and family (Daughter) Mode of arrival: ambulatory History of Present Illness HPI narrative: 53-year-old female who presents with persistent slowing of speech as well as bilateral lower extremity weakness and now states that she has developed upper extremity weakness, denies any visual disturbance, denies any slurred speech. The history is as follows, patient states that she went to urgent care on Sunday for a viral illness and then on Sunday evening while cooking her daughter noticed that she was standing and looking at the meal and then reported slowed speech, unsteady gait, daughter who is at bedside states that she feels that her mother is walking more towards the left side. Patient did present to [facility] [place] on Sunday and was thoroughly evaluated with a CT scan/MRI/EEG and was evaluated by Neurology as well. She was also seen by Physical therapy and Occupational therapy and the decision was made to discharge the patient home but both patient and daughter state that she did not undergo lumbar puncture at that time. Patient denies any possible exposure to Lyme disease as she denies any camping/outdoor hiking/pets or other activities that may have put her into exposure of tics. Patient states that she started off with bilateral lower extremity weakness but said that during her stay at [facility] [place] she feels that that is when she noticed her upper extremities were weak. She also reports development of intermittent tremors that she is unable to highlight a timing or event. She denies any recent emotional stressors or events. 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 Related Data Home Medications ?Medication ?Instructions ?Recorded ?Confirmed linaclotide 145 mcg capsule 145 mcg PO DAILY 02/16/24 (Linzess) Previous Rx's ?Medication ?Instructions ?Recorded cetirizine 10 mg tablet (All Day 10 mg PO DAILY #90 tabs 12/30/23 Allergy (cetirizine)) montelukast 10 mg tablet 10 mg PO BEDTIME #90 tabs 12/30/23 hydroxychloroquine 200 mg tablet See Rx Instructions PO .COMPLEX 02/13/24 #144 tabs Allergies Allergy/AdvReac Type Severity Reaction Status Date / Time No Known Allergies Allergy Verified 02/20/24 19:44 Review of Systems Review of Systems: Pertinent positives and negatives as stated in [facility] Past Medical History Source: nursing notes reviewed Medical History ERIN positive Irritable bowel syndrome with constipation Chronic pruritic rash in adult Lactose intolerance in adult Gallbladder polyp Vitamin D deficiency Impaired fasting glucose Diverticulosis Hemorrhoids Surgical menopause Rectal bleeding External hemorrhoids Seasonal allergies Endometrial polyp Varicose veins of both lower extremities Surgical History History of partial hysterectomy Hx of colonoscopy History of hysteroscopy History of section History of exploratory laparotomy Family History Family History Father Diabetes mellitus HTN (hypertension) Stroke Mother Diabetes mellitus HTN (hypertension) CHF (congestive heart failure) Sister Fibromyalgia Arthritis Maternal Grandfather History of heart attack Maternal Grandmother No problems noted. Paternal Grandfather No problems noted. Paternal Grandmother No problems noted. Brother No problems noted. Brother No problems noted. Sister No problems noted. Sister No problems noted. Son No problems noted. Daughter No problems noted. Daughter No problems noted. Daughter No problems noted. Daughter No problems noted. Daughter No problems noted. 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 GENERAL: Well developed, well nourished, in no acute distress. HEAD: Normocephalic/atraumatic EYES: PERRLA, EOMI, no nystagmus EARS: Ext canals without abnormality NOSE: Nares patent bilateral OROPHARYNX: no oral lesions noted, posterior pharynx clear NECK: Supple, no adenopathy LUNGS: Normal breath sounds. No adventitious sounds or accessory muscle use. SpO2<98> CARDIOVASCULAR: Regular rate and rhythm without noted murmurs ABDOMEN: Soft, non-tender, non-distended with bowel sounds. MUSCULOSKELETAL: No tenderness, deformities, or effusions noted on gross inspection. EXTREMITIES: No cyanosis, clubbing or edema. SKIN: Inspection of the skin reveals no rashes NEUROLOGIC: Alert and oriented x 4. Strength and sensation to light touch were grossly intact x 4, no nystagmus, no facial asymmetry, no pronator drift, bilateral hand grounds worker symmetrical, bilateral strength in lower extremities symmetrical, Romberg's positives, patient has noted dysmetria, on asking patient to balance on 1 leg she begins having tremors in the right upper extremity and does appear to be weak and unsteady. Course Course Course Narrative: This is a Rapid Medical Examination (RME) performed by John Mathur PA-C in triage. Full HPI, ROS, assessment and treatment plan per primary provider in the Main ED. 53 yo female here with uncontrollable upper extremity tremors and slowed speech since Sunday (4 days ago). Patient discharged from [facility] earlier today with diagnosis of dysarthria. was advised to discontinue her new prescroption hydroxychloroquin which she takes for dermatomyositis. states she has only been taking this for the past week. daughter states stroke work up was negative. now reporting right upper arm pain, right sided back pain, and chest pain. she is aox3. able to answer questions. slowed speech. no facial droop. resting tremor noted to head and upper extremities R > L. unsteady gait requiring wheelchair. Plan: labs, trop, ekg, chest xr Medications Administered Generic Name Dose Route Start Last Admin Trade Name Freq PRN Reason Stop Dose Admin Sodium Chloride 3 ml 02/21/24 00:00 02/21/24 00:19 0.9 % Sodium Chloride Flush 3 Ml Syringe IVFLUSH 3 ml QSHIFT WILL Administration Procedures Lumbar Puncture Time Out Performed: Yes Patient Position: upright Skin Prep: Povidone-Iodine 1% Local Anesthetic: lidocaine 1% Amount of anesthesia used (mL): 5 Spinal Needle Gauge: 20G Interspace Used: L4-L5 Fluid Initially Obtained: clear Complications: none Medical Decision Making Medical Decision Making [facility] Narrative: 2144: 53-year-old female with history and clinical presentation with concerns for possible Guillain-Mobile, low clinical suspicion for ALS, findings inconsistent with Parkinson's, MRI without identification MS findings. Records request from [facility] [place] has been initiated. I discussed with the patient that we will likely proceed with lumbar puncture. 2213: I discussed the case with Dr. Gregorio and agrees with LP for glucose/protein/cell count as well as admission. I reviewed all investigations and hematologic indices demonstrate a trace elevation of leukocytes with elevation of hemoglobin but otherwise no thrombocytopenia. Chemistry indices negative for [place]/electrolyte derangements and slight elevation of ALT without abdominal pain, high sensitivity troponin is undetectable without acute changes on EKG. Urinalysis is negative for UTI or hematuria. CSF protein-16.7. Chest x-ray negative for infiltrate or venous congestion. 2349: I discussed case with inpatient hospitalist who accepts admission. Differential Diagnosis Differential Diagnoses: The differential diagnosis associated with the presentation includes Please see the discussion above Admission/Observation Consideration of admission/observation: Escalation of care including admission/observation considered Please see the discussion above Consult Healthcare Provider Management of the patient was discussed with: Hospitalist and Rn Orthopaedic Please see the discussion above Lab Data [facility] Lab Attestation statement: I reviewed the patient's lab results. Please see the discussion above 02/20/24 20:00 02/20/24 20:22 Labs: Lab Results 02/20/24 02/20/24 02/20/24 Range/Units 20:00 20:22 22:48 WBC 11.2 H (4.8-10.8) X10*3/uL RBC 5.35 (4.20-5.50) X10*6/uL Hgb 16.3 H (12.0-16.0) g/dl Hct 46.7 (37.0-47.0) % MCV 87.3 (80.0-98.0) fL MCH 30.5 (27.0-33.0) pg MCHC 34.9 (31.0-35.0) g/dl RDW 12.2 (11.0-16.0) % Plt Count 282 (160-400) X10*3/uL MPV 10.1 (9.4-12.3) fL Immature Gran % (Auto) 0.4 (0.0-0.4) % Neut % (Auto) 71.2 (45-73) % Lymph % (Auto) 20.3 (20-40) % [place] % (Auto) 6.5 (2-11) % Eos % (Auto) 1.2 (0-4) % Baso % (Auto) 0.4 (0-2) % Lymph # (Auto) 2.3 (1.2-4.9) X10*3/uL [place] # (Auto) 0.7 (0.1-1.2) X10*3/uL Eos # (Auto) 0.1 (0.0-0.4) X10*3/uL Baso # (Auto) 0.0 (0.0-0.2) X10*3/uL Abs Immat Gran (auto) 0.05 H (0.00-0.03) X10*3/uL Absolute Neuts (auto) 8.0 (2.0-8.3) x10*3/uL Absolute Nucleated RBC 0.000 (0.0-0.012) X10*3/uL Nucleated RBC % (auto) 0.0 (0.0-0.2) /100WBC Sodium 138 (135-145) mmol/L Potassium 3.8 (3.3-5.1) mmol/L Chloride 104 (96-108) mmol/L Carbon Dioxide 22 (22-29) mmol/L Anion Gap 16 (12-20) BUN 7 L (9-16) mg/dL Creatinine 0.73 (0.5-1.4) mg/dL Estim Creat Clear Calc 82.0 Estimated GFR > 60 Random Glucose 143 H (60-115) mg/dL Calcium 9.7 (8.4-10.2) mg/dL Magnesium 1.9 (1.6-2.6) mg/dL Total Bilirubin 0.5 (0.0-1.0) mg/dL AST 30 (5-31) U/L ALT 34 H (0-31) U/L Alkaline Phosphatase 79 (39-117) U/L Troponin I High Sens < 2.7 (<3.5-17.0) ng/L Total Protein 7.5 (6.5-8.0) g/dL Albumin 4.3 (3.5-5.0) g/dL Lipase 24 (8-78) U/L Urine Color Yellow Urine Appearance Clear Urine pH 6.5 (5.0-9.0) Ur Specific [place] <= 1.005 (1.005-1.025) Urine Protein Negative (Neg-Trace) mg/dL Urine Glucose (UA) Negative (Negative) mg/dL Urine Ketones Negative (Negative) mg/dL Urine Blood Negative (Negative) Urine Nitrite Negative (Negative) Ur Leukocyte Esterase Trace H (Negative) Urine RBC 0-2 (0-2) /HPF Urine WBC 0-5 (0-5) /HPF Ur Squamous Epith Cells 0-2 (0-2) /HPF Urine Bacteria None Seen (None Seen) Hyaline Casts 0-2 (0-2) /LPF CSF Tube Number CSF Volume ML CSF Appearance CSF Color CSF WBC MM*3 CSF RBC MM*3 CSF Appearance (b) CSF Glucose mg/dL CSF Total Protein (15-45) mg/dL 02/20/24 02/20/24 Range/Units 23:25 23:25 WBC (4.8-10.8) X10*3/uL RBC (4.20-5.50) X10*6/uL Hgb (12.0-16.0) g/dl Hct (37.0-47.0) % MCV (80.0-98.0) fL MCH (27.0-33.0) pg MCHC (31.0-35.0) g/dl RDW (11.0-16.0) % Plt Count (160-400) X10*3/uL MPV (9.4-12.3) fL Immature Gran % (Auto) (0.0-0.4) % Neut % (Auto) (45-73) % Lymph % (Auto) (20-40) % [place] % (Auto) (2-11) % Eos % (Auto) (0-4) % Baso % (Auto) (0-2) % Lymph # (Auto) (1.2-4.9) X10*3/uL [place] # (Auto) (0.1-1.2) X10*3/uL Eos # (Auto) (0.0-0.4) X10*3/uL Baso # (Auto) (0.0-0.2) X10*3/uL Abs Immat Gran (auto) (0.00-0.03) X10*3/uL Absolute Neuts (auto) (2.0-8.3) x10*3/uL Absolute Nucleated RBC (0.0-0.012) X10*3/uL Nucleated RBC % (auto) (0.0-0.2) /100WBC Sodium (135-145) mmol/L Potassium (3.3-5.1) mmol/L Chloride (96-108) mmol/L Carbon Dioxide (22-29) mmol/L Anion Gap (12-20) BUN (9-16) mg/dL Creatinine (0.5-1.4) mg/dL Estim Creat Clear Calc Estimated GFR Random Glucose (60-115) mg/dL Calcium (8.4-10.2) mg/dL Magnesium (1.6-2.6) mg/dL Total Bilirubin (0.0-1.0) mg/dL AST (5-31) U/L ALT (0-31) U/L Alkaline Phosphatase (39-117) U/L Troponin I High Sens (<3.5-17.0) ng/L Total Protein (6.5-8.0) g/dL Albumin (3.5-5.0) g/dL Lipase (8-78) U/L Urine Color Urine Appearance Urine pH (5.0-9.0) Ur Specific [place] (1.005-1.025) Urine Protein (Neg-Trace) mg/dL Urine Glucose (UA) (Negative) mg/dL Urine Ketones (Negative) mg/dL Urine Blood (Negative) Urine Nitrite (Negative) Ur Leukocyte Esterase (Negative) Urine RBC (0-2) /HPF Urine WBC (0-5) /HPF Ur Squamous Epith Cells (0-2) /HPF Urine Bacteria (None Seen) Hyaline Casts (0-2) /LPF CSF Tube Number 2 4 CSF Volume 3.5 ML CSF Appearance CLEAR CSF Color COLORLESS CSF WBC 0 MM*3 CSF RBC 32 MM*3 CSF Appearance (b) Clear, Colorless CSF Glucose 81 mg/dL CSF Total Protein 16.7 (15-45) mg/dL Independent Interpretation I performed an independent interpretation of an: EKG Interpretation: Normal sinus rhythm, HR -89, no STEMI, RI/QRS/QTC is within normal limits. Chronic Conditions Patient?s care impacted by: Other Dermatomyositis, IBS Critical Care Time Critical Care Time Critical Care Time: Yes Total Critical Care Time: 90 Attestation: I personally attest to this time spent taking care of the patient. Discharge Plan Discharge Clinical Impression: Weakness of both lower extremities, Slow rate of speech Patient Disposition: Admitted As Inpatient Print Language: Citizen Of [place]
[2024-02-20 19:39] VITALS: BP 151/99; PULSE 102; RESP 20; TEMP 36.8; O2SAT 98; BMI 24.5
--- NOTE | 2024-02-20 19:44 | ECG_ITS ---
Test Reason : CP Blood Pressure : / mmHG Vent. Rate : 089 BPM Atrial Rate : 089 BPM P-R Int : 152 ms QRS Dur : 082 ms QT Int : 370 ms P-R-T Axes : 025 027 025 degrees QTc Int : 450 ms Normal sinus rhythm Normal ECG No previous ECGs available Referred By: Chantal Mathur Electronically Signed By:Benoit Lock
[2024-02-20 20:03] LABS: MANUAL DIFF FLAG NO
[2024-02-20 20:05] LABS: Basophils Percent Auto 0.4 % (0-2); Eosinophils Absolute Auto 0.1 X10*3/uL (0.0-0.4); Eosinophils Percent Auto 1.2 % (0-4); Hematocrit 46.7 % (37.0-47.0); Hemoglobin 16.3 g/dl (12.0-16.0); Imm Gran Abs Auto 0.05 X10*3/uL (0.00-0.03); Imm Gran Pct Auto 0.4 % (0.0-0.4); Lymphocytes Absolute Auto 2.3 X10*3/uL (1.2-4.9); Lymphocytes Percent Auto 20.3 % (20-40); Mean Corpuscular HGB Conc 34.9 g/dl (31.0-35.0); Mean Corpuscular Hemoglobin 30.5 pg (27.0-33.0); Mean Corpuscular Volume 87.3 fL (80.0-98.0); Mean Platelet Volume 10.1 fL (9.4-12.3); Monocytes Absolute Auto 0.7 X10*3/uL (0.1-1.2); Monocytes Percent Auto 6.5 % (2-11); Neutrophils Percent Auto 71.2 % (45-73); Platelet Count 282 X10*3/uL (160-400); Red Blood Count 5.35 X10*6/uL (4.20-5.50); Red Cell Distribution Width 12.2 % (11.0-16.0); White Blood Count 11.2 X10*3/uL (4.8-10.8)
[2024-02-20 20:44] LABS: Alanine Aminotransferase 34 U/L (0-31); Albumin Level 4.3 g/dL (3.5-5.0); Alkaline Phosphatase 79 U/L (39-117); Anion Gap 16 (12-20); Aspartate Amino Transferase 30 U/L (5-31); Bilirubin Total 0.5 mg/dL (0.0-1.0); Blood Urea Nitrogen 7 mg/dL (9-16); Calcium 9.7 mg/dL (8.4-10.2); Carbon Dioxide 22 mmol/L (22-29); Chloride 104 mmol/L (96-108); Estimated Glomerular Filt Rate > 60; Glucose Random 143 mg/dL (60-115); Lipase 24 U/L (8-78); Magnesium 1.9 mg/dL (1.6-2.6); Potassium 3.8 mmol/L (3.3-5.1); Sodium 138 mmol/L (135-145); Total Protein 7.5 g/dL (6.5-8.0)
[2024-02-20 20:58] LABS: Troponin-I High Sensitivity < 2.7 ng/L (<3.5-17.0)
[2024-02-20 22:56] LABS: Appearance Urine Clear; Color Urine Yellow; Glucose Urine UA Negative (Negative); Leukocyte Esterase Urine Trace (Negative); Nitrite Urine Negative (Negative); PH 6.5 (5.0-9.0); Specific Gravity - Urine <= 1.005 (1.005-1.025); UMIC TRIGGER UACC YES; Urine Blood Negative (Negative); Urine Ketones Negative (Negative); Urine Protein Negative (Neg-Trace)
--- NOTE | 2024-02-20 22:56 | PC.NURSE ---
Provider at bedside preparing for lumbar puncture.
[2024-02-20 22:59] LABS: Bacteria Urine None Seen (None Seen); Hyaline Casts Urine 0-2 /LPF (0-2); RBC Urine 0-2 /HPF (0-2); Squamous Epithelial Cell Urine 0-2 /HPF (0-2); WBC Urine 0-5 /HPF (0-5)
[2024-02-20 23:32] LABS: CSF Appearance Clear, Colorless; CSF Tube # 2
--- NOTE | 2024-02-20 23:52 | P.HPHOSP_ITS ---
History of Present Illness Date of Service: 02/20/24 Chief Complaint: Weakness This is a 53-year-old female with pertinent history of dermatomyositis, IBS, seasonal allergies who presents to the emergency department for evaluation of lower extremity weakness. Patient states her symptoms started 3 days prior to presentation. She was admitted at [facility] and evaluated for lower extremity weakness. MRI was performed at [facility] and patient states she was told that she does not have an acute stroke or MS. Also had an EEG and evaluation by Neurology. EEG was apparently normal. Patient was told that maybe her symptoms were due to hydroxychloroquine use and it was discontinued upon discharge. Patient was discharged from outside facility on 02/19. Patient presents to the ER with continued symptoms which include bilateral arm tremors, slowness of speech and difficulty with walking due to bilateral lower extremity weakness. This has never happened before. She denies fever, chills or diarrhea in the preceding week. In the emergency department, Neurology was consulted and LP was performed. Review of Systems 2 Constitutional: Constitutional: Reports weakness Cardiovascular: Cardiovascular: Reports no additional cardiovascular complaints Respiratory: Respiratory: Reports no additional respiratory complaints Gastrointestinal: Gastrointestinal: Reports no additional gastrointestinal complaints Genitourinary: Genitourinary: Reports no additional female genitourinary complaints Musculoskeletal: Musculoskeletal: Reports abnormal gait and Reports numbness Neurologic: Reports Abnormal speech present, Reports abnormal gait, Reports numbness and Reports weakness [facility] Medical History ERIN positive Irritable bowel syndrome with constipation Chronic pruritic rash in adult Lactose intolerance in adult Gallbladder polyp Vitamin D deficiency Impaired fasting glucose Diverticulosis Hemorrhoids Surgical menopause Rectal bleeding External hemorrhoids Seasonal allergies Endometrial polyp Varicose veins of both lower extremities Family History Father Diabetes mellitus HTN (hypertension) Stroke Mother Diabetes mellitus HTN (hypertension) CHF (congestive heart failure) Sister Fibromyalgia Arthritis Maternal Grandfather History of heart attack Maternal Grandmother No problems noted. Paternal Grandfather No problems noted. Paternal Grandmother No problems noted. Brother No problems noted. Brother No problems noted. Sister No problems noted. Sister No problems noted. Son No problems noted. Daughter No problems noted. Daughter No problems noted. Daughter No problems noted. Daughter No problems noted. Daughter No problems noted. 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 Cognitive needs: No Hearing needs: No Vision needs: No Meds Allergies Allergy/AdvReac Type Severity Reaction Status Date / Time No Known Allergies Allergy Verified 02/20/24 19:44 Home Medications ?Medication ?Instructions ?Recorded ?Confirmed ?Last Taken ?Type linaclotide 145 mcg capsule 145 mcg PO DAILY 02/16/24 Unknown History (Glory) Physical Exam 2 Vital Signs and Narrative: Vital Signs: Last Vital Signs Temp 98.2 F 02/20/24 19:39 Pulse 102 H 02/20/24 19:39 Resp 20 02/20/24 19:39 BP 151/99 H 02/20/24 19:39 Pulse Ox 98 02/20/24 19:39 O2 Del Method Room Air 02/20/24 19:39 BMI result Body Mass Index 24.5 Middle-aged female lying in bed in no distress Neck supple, no JVD Regular rate and rhythm, S1-S2 heard Regular breath sounds bilaterally, no wheezing or crackles appreciated Abdomen soft nontender, no guarding, no rigidity Patient is awake, alert and oriented to self, place, time and person ; no facial droop, slowness of speech present, intentional tremor bilaterally, bilateral lower extremity strength 3-4 out of 5 Psych: Normal mood No pedal edema Neuro: Speech: Abnormal speech present Results Labs 02/20/24 20:00 02/20/24 20:22 Labs: Laboratory Results - last 24 hr 02/20/24 02/20/24 02/20/24 20:00 20:22 22:48 MCV 87.3 MCH 30.5 MCHC 34.9 RDW 12.2 Plt Count 282 MPV 10.1 Immature Gran % (Auto) 0.4 Neut % (Auto) 71.2 Lymph % (Auto) 20.3 [place] % (Auto) 6.5 Eos % (Auto) 1.2 Baso % (Auto) 0.4 Lymph # (Auto) 2.3 [place] # (Auto) 0.7 Eos # (Auto) 0.1 Baso # (Auto) 0.0 Abs Immat Gran (auto) 0.05 H Absolute Neuts (auto) 8.0 Absolute Nucleated RBC 0.000 Nucleated RBC % (auto) 0.0 Anion Gap 16 Estim Creat Clear Calc 82.0 Estimated GFR > 60 Random Glucose 143 H Calcium 9.7 Magnesium 1.9 Total Bilirubin 0.5 AST 30 ALT 34 H Alkaline Phosphatase 79 Troponin I High Sens < 2.7 Total Protein 7.5 Albumin 4.3 Lipase 24 Urine Color Yellow Urine Appearance Clear Urine pH 6.5 Ur Specific [place] <= 1.005 Urine Protein Negative Urine Glucose (UA) Negative Urine Ketones Negative Urine Blood Negative Urine Nitrite Negative Ur Leukocyte Esterase Trace H Urine RBC 0-2 Urine WBC 0-5 Ur Squamous Epith Cells 0-2 Urine Bacteria None Seen Hyaline Casts 0-2 CSF Tube Number CSF Appearance (b) 02/20/24 23:25 MCV MCH MCHC RDW Plt Count MPV Immature Gran % (Auto) Neut % (Auto) Lymph % (Auto) [place] % (Auto) Eos % (Auto) Baso % (Auto) Lymph # (Auto) [place] # (Auto) Eos # (Auto) Baso # (Auto) Abs Immat Gran (auto) Absolute Neuts (auto) Absolute Nucleated RBC Nucleated RBC % (auto) Anion Gap Estim Creat Clear Calc Estimated GFR Random Glucose Calcium Magnesium Total Bilirubin AST ALT Alkaline Phosphatase Troponin I High Sens Total Protein Albumin Lipase Urine Color Urine Appearance Urine pH Ur Specific [place] Urine Protein Urine Glucose (UA) Urine Ketones Urine Blood Urine Nitrite Ur Leukocyte Esterase Urine RBC Urine WBC Ur Squamous Epith Cells Urine Bacteria Hyaline Casts CSF Tube Number 2 CSF Appearance (b) Clear, Colorless Imaging Radiologist's Impressions: Impressions Chest X-Ray 02/20/24 20:22 IMPRESSION: Unremarkable examination. Assessment and Plan (1) Weakness of both lower extremities: Status: Acute (2) Slow rate of speech: Status: Acute Plan This is a 53-year-old female with pertinent history of dermatomyositis, IBS, seasonal allergies who presents to the emergency department for evaluation of lower extremity weakness. #. Lower extremity weakness: Has Abnormal gait, slowness of speech, intentional hand tremors. LP obtained in the ER, follow results. Obtaining TSH, B12, CK. Neurology consulted, appreciate assistance. Requested records from [facility]. As per the patient, MRI at [facility] without evidence of acute CVA or MS. EEG at outside facility also within normal limits #. Dermatomyositis: Previously on hydroxychloroquine which was discontinued at discharge from [facility] as it was thought to be the etiology for above DVT prophylaxis: Resume Lovenox tomorrow Full code Admit as inpatient and will require two night minimum hospital stay for evaluation of lower extremity weakness (as above), which is not possible in a lesser acute setting. Specialist consult pending Quality Stroke Does the patient have a stroke diagnosis?: No VTE Prior VTE?: No VTE Risk Level:: Medical - moderate - high VTE Device Contraindication: Treatment Not Indicated VTE Drug Contraindication: N/A - Med Ordered
[2024-02-20 23:54] LABS: Glucose CSF 81 mg/dL; Total Protein CSF 16.7 mg/dL (15-45)
[2024-02-21 00:11] VITALS: BP 122/83; PULSE 81; RESP 16; O2SAT 96
[2024-02-21 00:18] LABS: Appearance CSF CLEAR; CSF Tube # 4; CSF Volume 3.5 ML; Color CSF COLORLESS; Red Blood Cell CSF 32 MM*3; White Blood Cell CSF 0 MM*3
[2024-02-21] MEDS: 0.9 % Sodium Chloride Flush 3 ML SYRINGE IVFLUSH ×2 (00:19→08:06)
[2024-02-21] MEDS: Acetaminophen 325 MG TABLET 650 MG PO ×2 (02:14→08:04)
[2024-02-21 02:22] VITALS: BP 122/85; PULSE 81; RESP 16; O2SAT 96
[2024-02-21 05:42] LABS: MANUAL DIFF FLAG NO
[2024-02-21 05:44] LABS: Basophils Percent Auto 0.5 % (0-2); Eosinophils Absolute Auto 0.1 X10*3/uL (0.0-0.4); Eosinophils Percent Auto 0.9 % (0-4); Hematocrit 43.4 % (37.0-47.0); Hemoglobin 14.9 g/dl (12.0-16.0); Imm Gran Abs Auto 0.04 X10*3/uL (0.00-0.03); Imm Gran Pct Auto 0.5 % (0.0-0.4); Lymphocytes Absolute Auto 2.3 X10*3/uL (1.2-4.9); Lymphocytes Percent Auto 27.8 % (20-40); Mean Corpuscular HGB Conc 34.3 g/dl (31.0-35.0); Mean Corpuscular Volume 87.5 fL (80.0-98.0); Mean Platelet Volume 10.4 fL (9.4-12.3); Monocytes Absolute Auto 0.7 X10*3/uL (0.1-1.2); Monocytes Percent Auto 8.4 % (2-11); Neutrophils Absolute Auto 5.1 x10*3/uL (2.0-8.3); Neutrophils Percent Auto 61.9 % (45-73); Platelet Count 283 X10*3/uL (160-400); Red Blood Count 4.96 X10*6/uL (4.20-5.50); Red Cell Distribution Width 12.4 % (11.0-16.0); White Blood Count 8.2 X10*3/uL (4.8-10.8)
[2024-02-21 06:13] LABS: Anion Gap 14 (12-20); Blood Urea Nitrogen 7 mg/dL (9-16); Calcium 9.4 mg/dL (8.4-10.2); Carbon Dioxide 25 mmol/L (22-29); Chloride 105 mmol/L (96-108); Creatinine Clr Calc Pharmacy 80.9; Estimated Glomerular Filt Rate > 60; Glucose Random 132 mg/dL (60-115); Potassium 3.9 mmol/L (3.3-5.1); Sodium 140 mmol/L (135-145)
[2024-02-21 06:20] VITALS: BP 103/64; PULSE 68; RESP 16; TEMP 36.6; O2SAT 96
[2024-02-21 06:28] LABS: Thyroid Stimulating Hormone 4.78 uIU/mL (0.32-4.0)
[2024-02-21 06:33] LABS: Folate 15.6 ng/mL (> or = 4.0); Vitamin B12 668 pg/mL (200-900)
--- NOTE | 2024-02-21 08:10 | PHA.MEDREC ---
Addendum entered by Lisa Quezada [facility] 02/21/24 08:11: Patient confirmed she is no longer on prednisone taper. She has also discontinued the hydroxychloroquine due to possible side effects. Also patient confirms to be on cetirizine and allergra. Original Note: Pharmacy Consult ? Medication Reconciliation Pharmacy has completed the medication reconciliation. Spoke to patient.
--- NOTE | 2024-02-21 08:18 | PC.NURSE ---
Medicated per mar for complaints of right shoulder stiffness, daughter at bedside
--- NOTE | 2024-02-21 09:23 | PC.NURSE ---
Patient ambulated in hallway , gait steady, denies dizziness
--- NOTE | 2024-02-21 09:32 | MHC.CM.PN ---
Met with patient and daughter, Carmelita, in regards to discharge planning. Patient lives with her 2 children, ambulates independently and had no services prior to coming to the hospital. No services anticipated to be needed because patient is not homebound. PCP verified. Patient received 2 Pfizer vaccines. Carmelita will transport patient home when medically stable. Continue to monitor for d/c needs.
--- NOTE | 2024-02-21 10:16 | PM.NEUROCN ---
History of Present Illness Data of Consult Service Date: 02/21/24 Primary Care Provider: Susan Yanez MD HPI Reason for consult: Encephalopathy 53 years old woman who was recently diagnosed with dermatomyositis came to emergency room last night with complaints of shaking not able to walk and not able to speak well. Apparently she has been admitted in [facility] few days ago with somewhat similar symptoms and headache and body pain and had multiple investigations including brain MRI, MRI of cervical, thoracic, lumbosacral spine and blood test not revealing any significant abnormality or explanation of her symptoms. Now she came to [facility] emergency room with somewhat similar symptoms. ER physician talked to me last night stating that because of suspicion of neuromuscular disorder maybe a lumbar puncture should be done, which I agreed to and she had the lumbar puncture done last night which did not reveal any significant abnormality either. When I saw her she was in emergency room and her daughter was sitting next to her. She denied any recent trauma, alcohol or drug use, or any significant emotional or psychological stress. Review of Systems Review of Systems: No recent cold or flu-like illness PMFSH Past Medical History Medical History ERIN positive Irritable bowel syndrome with constipation Chronic pruritic rash in adult Lactose intolerance in adult Gallbladder polyp Vitamin D deficiency Impaired fasting glucose Diverticulosis Hemorrhoids Surgical menopause Rectal bleeding External hemorrhoids Seasonal allergies Endometrial polyp Varicose veins of both lower extremities Family History Family History Father Diabetes mellitus HTN (hypertension) Stroke Mother Diabetes mellitus HTN (hypertension) CHF (congestive heart failure) Sister Fibromyalgia Arthritis Maternal Grandfather History of heart attack Maternal Grandmother No problems noted. Paternal Grandfather No problems noted. Paternal Grandmother No problems noted. Brother No problems noted. Brother No problems noted. Sister No problems noted. Sister No problems noted. Son No problems noted. Daughter No problems noted. Daughter No problems noted. Daughter No problems noted. Daughter No problems noted. Daughter No problems noted. Maternal Aunt Rheumatoid arthritis Surgical History Surgical History History of partial hysterectomy Hx of colonoscopy History of hysteroscopy History of section History of exploratory laparotomy Social History Social History Housing: Apartment Alcohol intake: current Alcohol intake frequency: holidays/special occasions only Patient Tobacco Use Status: Never used Tobacco e-Cigarette/Vaping Use: Never Used Second Hand Smoke Exposure: No Advance Directives: No Advance Directives Information Provided: Yes Do you have a plan to hurt others: No Plan service: No Current occupational status: employed 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 Cognitive needs: No Hearing needs: No Vision needs: No Meds Allergies Allergy/AdvReac Type Severity Reaction Status Date / Time No Known Allergies Allergy Verified 02/20/24 19:44 Active Medications: Current Medications Acetaminophen (Acetaminophen 325 Mg Tablet) 650 mg PO Q6H PRN PRN Reason: Pain, Mild (Pain Scale 1-3) Last Admin: 02/21/24 08:04 Dose: 650 mg Enoxaparin Sodium (Enoxaparin Sodium 40 Mg/0.4 Ml Syringe) 40 mg SUBCUT Q24H WILL Loratadine (Loratadine 10 Mg Tablet) 10 mg PO DAILY WILL Melatonin (Melatonin 3 Mg Tablet) 6 mg PO BEDTIME PRN PRN Reason: Insomnia Montelukast Sodium (Montelukast Sodium 10 Mg Tablet) 10 mg PO BEDTIME WILL Ondansetron HCl (Ondansetron Hcl 4 Mg/2 Ml Vial) 4 mg IVPUSH Q8H PRN PRN Reason: Nausea and Vomiting Sodium Chloride (0.9 % Sodium Chloride Flush 3 Ml Syringe) 3 ml IVFLUSH QSHIFT WILL Last Admin: 02/21/24 08:06 Dose: 3 ml Home Medications ?Medication ?Instructions ?Recorded ?Confirmed ?Last Taken ?Type linaclotide 145 mcg capsule 145 mcg PO DAILY 02/16/24 02/21/24 Unknown History (Linzess) fexofenadine 180 mg tablet 180 mg PO DAILY 02/21/24 02/21/24 Unknown History Physical Exam Vital Signs: Vital Signs: Last Vital Signs Temp 97.9 F 02/21/24 06:20 Pulse 68 02/21/24 06:20 Resp 16 02/21/24 06:20 BP 103/64 02/21/24 06:20 Pulse Ox 96 02/21/24 06:20 O2 Del Method Room Air 05/09/24 06:20 BMI result Body Mass Index 24.5 Neuro: Other: She is alert and awake with somewhat slowed speech but after few minutes she was able to speak better. Spontaneity and fluency improved. Comprehension was intact. She was following commands. Affect was flat. Face was symmetrical. Visual tracey are full. There was no significant tremor. Deep tendon reflexes were trace to absent with flexor plantars. She was moving slowly. Speech otherwise was normal. Results Labs 02/21/24 04:34 02/21/24 04:34 Labs: Short CBC 02/20/24 02/21/24 Range/Units 20:00 04:34 WBC 11.2 H 8.2 (4.8-10.8) X10*3/uL Hgb 16.3 H 14.9 (12.0-16.0) g/dl Hct 46.7 43.4 (37.0-47.0) % Plt Count 282 283 (160-400) X10*3/uL BMP 02/20/24 02/21/24 20:22 04:34 Sodium 138 140 Potassium 3.8 3.9 Chloride 104 105 Carbon Dioxide 22 25 BUN 7 L 7 L Creatinine 0.73 0.74 Calcium 9.7 9.4 Cardiac Enzymes 02/21/24 Range/Units 04:34 Total Creatine Kinase 75 (26-140) U/L Liver Function 02/20/24 Range/Units 20:22 Total Bilirubin 0.5 (0.0-1.0) mg/dL AST 30 (5-31) U/L ALT 34 H (0-31) U/L Alkaline Phosphatase 79 (39-117) U/L Albumin 4.3 (3.5-5.0) g/dL Urine 02/20/24 Range/Units 22:48 Urine Color Yellow Urine Appearance Clear Urine pH 6.5 (5.0-9.0) Ur Specific [place] <= 1.005 (1.005-1.025) Urine Protein Negative (Neg-Trace) mg/dL Urine Glucose (UA) Negative (Negative) mg/dL A recent MRI of brain, cervical spine, thoracic spine, lumbosacral spine done at [facility] reviewed. Brain MRI revealed 1 punctate right frontal hyper intensity, cervical spine MRI revealed reversal of cervical curvature with moderate spondylitic disease, thoracic spine did not reveal any significant abnormality, and similarly lumbosacral spine did not reveal any significant abnormality either. Spinal fluid was okay. Microbiology Microbiology Results: Microbiology 02/20/24 23:25 Cerebrospinal Fluid Gram Stain - Final 02/20/24 23:25 Cerebrospinal Fluid CSF Examination - Final 02/20/24 23:25 Cerebrospinal Fluid Fluid Description - Final Assessment and Plan (1) Somatization disorder: Status: Acute 53 years old woman who was recently given diagnosis of dermatomyositis by behavioral intervention specialist in [facility] went to [facility] few days ago with number of symptoms, which were investigated by extensive imaging and other testing not revealing any explanation. Now she was in this institution with somewhat similar symptoms and again had a negative workup. Clinical evaluation suggested a psychological reason, which might have been triggered by the knowledge of this recent diagnosis or they might be an alternate psychological cause. I recommend obtaining a formal psychiatric consultation for possible treatment of mood disorder and outpatient counseling therapy. She should also have a visit with her primary care physician as they might have better understanding of her overall situation. Procedures Date of Service Date of Service: 02/21/24
--- NOTE | 2024-02-21 13:59 | P.DS_ITS ---
DS: Providers Provider Date of Service: 02/21/24 Date of admission: 02/20/24 23:52 Primary care physician: Susan Yanez MD Consults: 02/20/24 23:52 Consult to Neurology Routine Consulting Provider: [facility] Reason for consultation: weakness 02/21/24 09:30 Consult to Psychiatry Routine Consulting Provider: Psych Covering Reason for consultation: psycho somatic symptoms Has provider been notified: No DS: Diagnosis Discharge Diagnosis (1) Somatization disorder: Status: Acute DS: Summary Hospital Course Hospital Course: History presenting illness: Date of Service: 02/20/24 Chief Complaint: Weakness This is a 53-year-old female with pertinent history of dermatomyositis, IBS, seasonal allergies who presents to the emergency department for evaluation of lo wer extremity weakness. Patient states her symptoms started 3 days prior to presentation. She was admitted at [facility] and evaluated for lower extremity weakness. MRI was performed at [facility] and patient states she was told that she does not have an acute stroke or MS. Also had an EEG and evaluation by Neurology. EEG was apparently normal. Patient was told that maybe her symptoms were due to hydroxychloroquine use and it was discontinued upon discharge. Patient was discharged from outside facility on 02/19. Patient presents to the ER with continued symptoms which include bilateral arm tremors, slowness of speech and difficulty with walking due to bilateral lower extremity weakness. This has never happened before. She denies fever, chills or diarrhea in the preceding week. In the emergency department, Neurology was consulted and LP was performed. Hospital course: 53-year-old female recently diagnosed to have dermatomyositis, presented to [facility] due to complaints of difficulty in ambulation due to lower extremity weakness, speech impairment and bilateral arm tremors, Patient was recently discharged from [facility] with similar symptoms and underwent extensive workup including MRI of had an EEG both studies were unremarkable patient underwent lumbar puncture study in the emergency room due to suspicion of neuromuscular disorder, LP study was essentially unremarkable, this morning all symptoms have resolved patient ambulated without difficulty, she was evaluated by Neurology, since patient has normal neurological examination Neurology recommend psychotic consultation for possible psychological causes of her presentation, patient evaluated by Psychiatry , and no obvious psychiatric cause was found since patient is hemodynamically stable with complete resolution of neurological symptoms she is being discharged home to resume all of her home medications she is recommended to follow-up with primary care physician and Rheumatology. Time Attestation Discharge Coordination Time (in mins): 36 Quality: Safe Use of Opioids Does Pt have an Active Cancer Diagnosis on the Problem List?: No Quality: Stroke Does the patient have a stroke diagnosis?: No Physical Exam Vital Signs: Vital Signs: Last Vital Signs Temp 97.9 F 02/21/24 06:20 Pulse 68 02/21/24 06:20 Resp 16 02/21/24 06:20 BP 103/64 02/21/24 06:20 Pulse Ox 96 02/21/24 06:20 O2 Del Method Room Air 02/21/24 06:20 BMI result Body Mass Index 24.5 Const: Other: General alert oriented x3, resting comfortably in no acute distress. Neck supple no JVD. CVS regular rate rhythm, Respiratory lungs clear to auscultation, no respiratory distress, no wheeze, no rhonchi. Gastrointestinal abdomen soft, non tender, bowel sounds audible, no guarding , no rigidity. Extremities no edema. Neuro non focal Skin no rash Psych appropriate affect DS: Data Data Completed and Pending Labs on day of discharge: Laboratory Results - last 24 hr 02/20/24 02/20/24 02/20/24 20:00 20:22 22:48 WBC 11.2 H RBC 5.35 Hgb 16.3 H Hct 46.7 MCV 87.3 MCH 30.5 MCHC 34.9 RDW 12.2 Plt Count 282 MPV 10.1 Immature Gran % (Auto) 0.4 Neut % (Auto) 71.2 Lymph % (Auto) 20.3 [place] % (Auto) 6.5 Eos % (Auto) 1.2 Baso % (Auto) 0.4 Lymph # (Auto) 2.3 [place] # (Auto) 0.7 Eos # (Auto) 0.1 Baso # (Auto) 0.0 Abs Immat Gran (auto) 0.05 H Absolute Neuts (auto) 8.0 Absolute Nucleated RBC 0.000 Nucleated RBC % (auto) 0.0 Sodium 138 Potassium 3.8 Chloride 104 Carbon Dioxide 22 Anion Gap 16 BUN 7 L Creatinine 0.73 Estim Creat Clear Calc 82.0 Estimated GFR > 60 Random Glucose 143 H Calcium 9.7 Magnesium 1.9 Total Bilirubin 0.5 AST 30 ALT 34 H Alkaline Phosphatase 79 Total Creatine Kinase Troponin I High Sens < 2.7 Total Protein 7.5 Albumin 4.3 Lipase 24 Vitamin B12 Folate TSH Urine Color Yellow Urine Appearance Clear Urine pH 6.5 Ur Specific [place] <= 1.005 Urine Protein Negative Urine Glucose (UA) Negative Urine Ketones Negative Urine Blood Negative Urine Nitrite Negative Ur Leukocyte Esterase Trace H Urine RBC 0-2 Urine WBC 0-5 Ur Squamous Epith Cells 0-2 Urine Bacteria None Seen Hyaline Casts 0-2 CSF Tube Number CSF Volume CSF Appearance CSF Color CSF WBC CSF RBC CSF Appearance (b) CSF Glucose CSF Total Protein 02/20/24 02/20/24 02/21/24 23:25 23:25 04:34 WBC 8.2 RBC 4.96 Hgb 14.9 Hct 43.4 MCV 87.5 MCH 30.0 MCHC 34.3 RDW 12.4 Plt Count 283 MPV 10.4 Immature Gran % (Auto) 0.5 H Neut % (Auto) 61.9 Lymph % (Auto) 27.8 [place] % (Auto) 8.4 Eos % (Auto) 0.9 Baso % (Auto) 0.5 Lymph # (Auto) 2.3 [place] # (Auto) 0.7 Eos # (Auto) 0.1 Baso # (Auto) 0.0 Abs Immat Gran (auto) 0.04 H Absolute Neuts (auto) 5.1 Absolute Nucleated RBC 0.000 Nucleated RBC % (auto) 0.0 Sodium 140 Potassium 3.9 Chloride 105 Carbon Dioxide 25 Anion Gap 14 BUN 7 L Creatinine 0.74 Estim Creat Clear Calc 80.9 Estimated GFR > 60 Random Glucose 132 H Calcium 9.4 Magnesium Total Bilirubin AST ALT Alkaline Phosphatase Total Creatine Kinase 75 Troponin I High Sens Total Protein Albumin Lipase Vitamin B12 668 Folate 15.6 TSH 4.78 H Urine Color Urine Appearance Urine pH Ur Specific [place] Urine Protein Urine Glucose (UA) Urine Ketones Urine Blood Urine Nitrite Ur Leukocyte Esterase Urine RBC Urine WBC Ur Squamous Epith Cells Urine Bacteria Hyaline Casts CSF Tube Number 2 4 CSF Volume 3.5 CSF Appearance CLEAR CSF Color COLORLESS CSF WBC 0 CSF RBC 32 CSF Appearance (b) Clear, Colorless CSF Glucose 81 CSF Total Protein 16.7 Preliminary micro results at discharge 02/20/24 23:25 CSF Culture - Preliminary Cerebrospinal Fluid No growth to date. Discharge Plan Discharge Anticipated Discharge Date/Time: 02/21/24 09:19 Patient Disposition: Home, Self-Care Discharge Diagnosis: Bilateral lower extremity weakness Unsteady gait Referrals: Suasn Yanez MD [Primary Care Provider] - 1 Week Discharge Medications: Continued cetirizine [All Day Allergy (cetirizine)] 10 mg tablet 10 mg PO DAILY Qty: 90 1RF montelukast 10 mg tablet 10 mg PO BEDTIME Qty: 90 1RF fexofenadine 180 mg Tablet 180 mg PO DAILY Linzess 145 mcg capsule 145 mcg PO DAILY Discharge Orders: Discharge Order (Routine); Ordered 02/21/24 Ordered By: Susan Burks Diet: Advance to usual diet Activity on Discharge: As tolerated Stand Alone Forms: Patient Portal Discharge page Print Language: Malagasy Care Plan Goals: Transient neurological symptoms, all symptoms resolved Health Concerns: Dermatomyositis Plan of Treatment: Outpatient follow-up with primary care physician and Rheumatology call for appointment Assessment: as above
--- NOTE | 2024-02-21 14:02 | P.CNPS_ITS ---
History of Present Illness Date of Service: 02/21/2024 Chief Complaint: Weakness Reason for Consult: psychosomatic s/s Requesting physician: Susan Burks Discussed with referring provider: Yes Sources of Information: patient interviewed, chart reviewed and crisis/core team assessment reviewed HPI Narrative: Ms. Downs is a [facility] Medical History ERIN positive Irritable bowel syndrome with constipation Chronic pruritic rash in adult Lactose intolerance in adult Gallbladder polyp Vitamin D deficiency Impaired fasting glucose Diverticulosis Hemorrhoids Surgical menopause Rectal bleeding External hemorrhoids Seasonal allergies Endometrial polyp Varicose veins of both lower extremities Surgical History History of partial hysterectomy Hx of colonoscopy History of hysteroscopy History of section History of exploratory laparotomy Diagnostics Vital Signs (24Hr): Vital Signs - 24 hr 02/20/24 19:39 02/21/24 00:11 02/21/24 02:22 Temperature 98.2 F Pulse Rate 102 H 81 81 Respiratory Rate 20 16 16 Blood Pressure 151/99 H 122/83 122/85 Pulse Oximetry 98 96 96 Oxygen Delivery Method Room Air Room Air Room Air 02/21/24 06:20 Temperature 97.9 F Pulse Rate 68 Respiratory Rate 16 Blood Pressure 103/64 Pulse Oximetry 96 Oxygen Delivery Method Room Air BMI result Body Mass Index 24.5 Labs 02/21/24 04:34 02/21/24 04:34 Labs: Laboratory Results - last 48 hr 02/20/24 02/20/24 02/20/24 20:00 20:22 22:48 WBC 11.2 H RBC 5.35 Hgb 16.3 H Hct 46.7 MCV 87.3 MCH 30.5 MCHC 34.9 RDW 12.2 Plt Count 282 MPV 10.1 Immature Gran % (Auto) 0.4 Neut % (Auto) 71.2 Lymph % (Auto) 20.3 [place] % (Auto) 6.5 Eos % (Auto) 1.2 Baso % (Auto) 0.4 Lymph # (Auto) 2.3 [place] # (Auto) 0.7 Eos # (Auto) 0.1 Baso # (Auto) 0.0 Abs Immat Gran (auto) 0.05 H Absolute Neuts (auto) 8.0 Absolute Nucleated RBC 0.000 Nucleated RBC % (auto) 0.0 Sodium 138 Potassium 3.8 Chloride 104 Carbon Dioxide 22 Anion Gap 16 BUN 7 L Creatinine 0.73 Estim Creat Clear Calc 82.0 Estimated GFR > 60 Random Glucose 143 H Calcium 9.7 Magnesium 1.9 Total Bilirubin 0.5 AST 30 ALT 34 H Alkaline Phosphatase 79 Total Creatine Kinase Troponin I High Sens < 2.7 Total Protein 7.5 Albumin 4.3 Lipase 24 Vitamin B12 Folate TSH Urine Color Yellow Urine Appearance Clear Urine pH 6.5 Ur Specific [place] <= 1.005 Urine Protein Negative Urine Glucose (UA) Negative Urine Ketones Negative Urine Blood Negative Urine Nitrite Negative Ur Leukocyte Esterase Trace H Urine RBC 0-2 Urine WBC 0-5 Ur Squamous Epith Cells 0-2 Urine Bacteria None Seen Hyaline Casts 0-2 CSF Tube Number CSF Volume CSF Appearance CSF Color CSF WBC CSF RBC CSF Appearance (b) CSF Glucose CSF Total Protein 02/20/24 02/20/24 02/21/24 23:25 23:25 04:34 WBC 8.2 RBC 4.96 Hgb 14.9 Hct 43.4 MCV 87.5 MCH 30.0 MCHC 34.3 RDW 12.4 Plt Count 283 MPV 10.4 Immature Gran % (Auto) 0.5 H Neut % (Auto) 61.9 Lymph % (Auto) 27.8 [place] % (Auto) 8.4 Eos % (Auto) 0.9 Baso % (Auto) 0.5 Lymph # (Auto) 2.3 [place] # (Auto) 0.7 Eos # (Auto) 0.1 Baso # (Auto) 0.0 Abs Immat Gran (auto) 0.04 H Absolute Neuts (auto) 5.1 Absolute Nucleated RBC 0.000 Nucleated RBC % (auto) 0.0 Sodium 140 Potassium 3.9 Chloride 105 Carbon Dioxide 25 Anion Gap 14 BUN 7 L Creatinine 0.74 Estim Creat Clear Calc 80.9 Estimated GFR > 60 Random Glucose 132 H Calcium 9.4 Magnesium Total Bilirubin AST ALT Alkaline Phosphatase Total Creatine Kinase 75 Troponin I High Sens Total Protein Albumin Lipase Vitamin B12 668 Folate 15.6 TSH 4.78 H Urine Color Urine Appearance Urine pH Ur Specific [place] Urine Protein Urine Glucose (UA) Urine Ketones Urine Blood Urine Nitrite Ur Leukocyte Esterase Urine RBC Urine WBC Ur Squamous Epith Cells Urine Bacteria Hyaline Casts CSF Tube Number 2 4 CSF Volume 3.5 CSF Appearance CLEAR CSF Color COLORLESS CSF WBC 0 CSF RBC 32 CSF Appearance (b) Clear, Colorless CSF Glucose 81 CSF Total Protein 16.7 Imaging Radiology Impressions: ITS Impressions Chest X-Ray 02/20/24 20:22 IMPRESSION: Unremarkable examination. Medications Medications Current Medications Acetaminophen (Acetaminophen 325 Mg Tablet) 650 mg PO Q6H PRN PRN Reason: Pain, Mild (Pain Scale 1-3) Last Admin: 02/21/24 08:04 Dose: 650 mg Enoxaparin Sodium (Enoxaparin Sodium 40 Mg/0.4 Ml Syringe) 40 mg SUBCUT Q24H WILL Loratadine (Loratadine 10 Mg Tablet) 10 mg PO DAILY WILL Melatonin (Melatonin 3 Mg Tablet) 6 mg PO BEDTIME PRN PRN Reason: Insomnia Montelukast Sodium (Montelukast Sodium 10 Mg Tablet) 10 mg PO BEDTIME WILL Ondansetron HCl (Ondansetron Hcl 4 Mg/2 Ml Vial) 4 mg IVPUSH Q8H PRN PRN Reason: Nausea and Vomiting Sodium Chloride (0.9 % Sodium Chloride Flush 3 Ml Syringe) 3 ml IVFLUSH QSHIFT [facility] Last Admin: 02/21/24 08:06 Dose: 3 ml Allergies Allergies Allergy/AdvReac Type Severity Reaction Status Date / Time No Known Allergies Allergy Verified 02/20/24 19:44 Assessment & Plan Total time managing care of this patient today ____ minutes.
[2024-02-21 14:33] VITALS: BP 103/64; PULSE 68; RESP 18; TEMP 36.6; O2SAT 96
== END 2024-02-21 14:27 | disposition home or self-care (01) | DRG 861 ==
LOC: HO.ED 23:00 → HO.EDOVER 02-21 01:01
PROVIDERS: Emergency Medicine; Physician Assistant Medical; Admitting Provider Student in an Organized Health Care Education/Training Program; Emergency Provider Student in an Organized Health Care Education/Training Program; PCP Internal Medicine; Visit Provider Hospitalist
DX: R53.1 Weakness (principal); M33.13 Other dermatomyositis without myopathy; R26.81 Unsteadiness on feet; Z79.899 Other long term (current) drug therapy
CPT/HCPCS: 36415; 71045; 80048; 80053; 81001; 82550; 82607; 82746; 82945; 83690; 83735; 84157; 84443; 84484; 85025; 87015; 87070; 87205; 89051; 93005; 99285

== ENCOUNTER → 2024-02-20 19:44 | Outpatient (BNV) | payer BC, SELFPAY | PROVIDERS: Admitting Provider Student in an Organized Health Care Education/Training Program; Emergency Provider Student in an Organized Health Care Education/Training Program; PCP Internal Medicine; Visit Provider Internal Medicine Cardiovascular Disease | DX: R07.9 Chest pain, unspecified (principal) | CPT/HCPCS: 93010 ==

== ENCOUNTER → 2024-02-20 20:21 | Outpatient (BNV) | payer BC, SELFPAY | PROVIDERS: Emergency Provider Student in an Organized Health Care Education/Training Program; PCP Internal Medicine; Visit Provider Student in an Organized Health Care Education/Training Program | DX: R29.898 Other symptoms and signs involving the musculoskeletal system (principal); R47.89 Other speech disturbances; F45.0 Somatization disorder | CPT/HCPCS: 99222; 99239 ==

== ENCOUNTER → 2024-02-20 23:52 | Outpatient (BNV) | payer BC, SELFPAY | PROVIDERS: Admitting Provider Student in an Organized Health Care Education/Training Program; Emergency Provider Student in an Organized Health Care Education/Training Program; PCP Internal Medicine; Visit Provider Psychiatry & Neurology Neurology | DX: F45.0 Somatization disorder (principal) | CPT/HCPCS: 99253 ==

== ENCOUNTER 2024-02-26 11:53 | Outpatient (AMB) | payer BC, SELFPAY ==
--- NOTE | 2024-02-26 11:59 | A.OFFPC_ITS ---
<Statement entered by Susan Yanez MD - 03/13/25 09:33> This note has been administratively?closed. Vital Signs 02/26/24 12:03 Height 5 ft Weight 149 lb BMI 29.1 BP 102/60 Blood Pressure Location Rt brachial Position Sitting Pulse 93 Pulse Source Pulse Oximeter Pulse Oximetry (%) 98 Oxygen Delivery Method Room Air Intake Visit Reasons: [facility] 02/16/24 Intake Note: Pt is here today for her [facility] for tremers Allergies hydroxychloroquine Allergy (Severe, Verified 12/22/24 09:26) Dizziness Medication List - Last Reconciled 02/26/24 by Susan Yanez MD cetirizine (All Day Allergy (cetirizine)) 10 mg PO DAILY fexofenadine 180 mg PO DAILY linaclotide (Linzess) 145 mcg PO DAILY montelukast 10 mg PO BEDTIME Tobacco use date assessed: 02/26/24 Dental Screening Dental Screen Date: 02/26/24 Did you have a dental visit in the last 12 months?: No Was dental information given to patient?: Patient declined HPI [facility] 02/16/24 HPI Details 33Year old lady with history of dermatom yositis, has IBS with constipation, seasonal allergies, here today for follow-up after recent hospital admission at [facility] 02/16-05/2024. She presents you 02/17/2024 complaining of headache with sore throat congestion and cough,, later accompanied by dizziness and lost her balance with difficulty standing and moving her arms and legs. The during that time she also was noted to have difficulty speaking and slow speech here at the ER she was noted to have tremors of bilateral upper extremities worse on the right, [facility] Medical History (Updated 12/22/24 @ 09:53 by Susan Yanez MD) Vaccine refused by patient Dermatomyositis Irritable bowel syndrome with constipation Chronic pruritic rash in adult Gallbladder polyp Vitamin D deficiency Impaired fasting glucose Diverticulosis Surgical menopause Rectal bleeding External hemorrhoids Seasonal allergies Endometrial polyp Varicose veins of both lower extremities Surgical History History of partial hysterectomy Hx of colonoscopy History of hysteroscopy History of section History of exploratory laparotomy Family History Father Diabetes mellitus HTN (hypertension) Stroke Mother Diabetes mellitus HTN (hypertension) CHF (congestive heart failure) Sister Fibromyalgia Arthritis Maternal Grandfather History of heart attack Maternal Grandmother No problems noted. Paternal Grandfather No problems noted. Paternal Grandmother No problems noted. Brother No problems noted. Brother No problems noted. Sister No problems noted. Sister No problems noted. Son No problems noted. Daughter No problems noted. Daughter No problems noted. Daughter No problems noted. Daughter No problems noted. Daughter No problems noted. 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 Kali Gomez, Miryam Rosenthal, Lee Galloway and colleagues, with an educational may from [employer]. Physical exam (Primary Care) Vital Signs: Last Vital Signs Pulse 93 02/26/24 12:03 BP 102/60 02/26/24 12:03 Pulse Ox 98 02/26/24 12:03 Oxygen Delivery Method Room Air 02/26/24 12:03 BMI result Body Mass Index 29.1 Tobacco/Smoking Status: Tobacco use Status Tobacco use date assessed 02/26/24 02/26/24 12:06 Patient Tobacco Use Status Never used Tobacco 02/26/24 11:59 e-Cigarette/Vaping Use Never Used 02/26/24 11:59 Thrive Assessment: Date of Thrive Assessment Date Thrive assessed 02/21/24 02/26/24 11:59 Coding Level of Care Code Admin Sign Off/No Billing Diagnoses Dermatomyositis M33.13 History of muscle weakness Z87.39 History of ataxia Z87.898 History of dysarthria Z87.898
[2024-02-26 12:03] VITALS: BP 102/60; PULSE 93; O2SAT 98; BMI 29.1
== END 2024-02-26 15:42 | disposition home or self-care (01) ==
PROVIDERS: PCP Internal Medicine; Visit Provider Internal Medicine
DX: M33.13 Other dermatomyositis without myopathy (principal); Z87.39 Personal history of other diseases of the musculoskeletal system and connective tissue; Z87.898 Personal history of other specified conditions
CPT/HCPCS: 99499

== ENCOUNTER 2024-04-21 08:14 | Outpatient (AMB) | payer BC, SELFPAY ==
--- NOTE | 2024-04-21 08:18 | MHC.OFFVIS ---
Vital Signs 04/21/24 08:26 Height 5 ft Weight 147 lb 0.773 oz BMI 28.7 BP 115/60 Blood Pressure Location Lt brachial Position Sitting Pulse 71 Pulse Source Pulse Oximeter Pulse Oximetry (%) 98 Oxygen Delivery Method Room Air Intake Visit Reasons: Dermatomyositis Intake Note: Patient presents for Dermatomyositis. 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 Patient took hydroxychloroquine for a few weeks then had tremors, she was admitted to the hospital and had multiple tests were negative. She was discharged from the hospital and had another episode. She was taken to [facility]. She had CSF studies which were unremarkable. No cause of her seizures was found. Psychiatric assessment was suggested and patient declined. She continues to have the same rashes on her face, on her forearms. They are itchy. Initial history: This is a 53-year-old female who presents for evaluation of positive ERIN context of a skin rash. The condition started back in 2021 when patient noticed bloating. She was evaluated by her PCP and blood work was done and was told that it is not consistent with celiac disease however patient started cutting down on gluten with improved symptoms. She eventually was evaluated by manager study and had a colonoscopy and was told that she has diverticulosis. Patient denied having an endoscopy She was advised to continue with avoiding gluten and lactose. When following this diet, patient's symptoms with improved. In the fall of 2022 she started having rashes on her forehead, cheeks, neck and chest. Skin biopsy was not specific but 1 of the differential diagnoses was lupus. She had been treated with topical steroids and tacrolimus with little relief. Systemic steroid taper was very effective. She used to have rashes on her face, neck, chest and hands. She states that she feels her joints are stiff particularly her knees. Denies any swelling. She stated that for about 20 years she has had swelling on the outer aspect of her left wrist. It is not particularly painful. She denies any swollen joints. Denies any history of DVT/PE. Denies mouth ulcers. Denies any blood or frothy urine. States that her maternal aunt has rheumatoid arthritis. Patient had 7 pregnancies in total, 6 children and 1 miscarriage. [facility] Medical History (Updated 04/21/24 @ 08:55 by Salvador Hyman MD) Irritable bowel syndrome with constipation Chronic pruritic rash in adult Lactose intolerance in adult Gallbladder polyp Vitamin D deficiency Impaired fasting glucose Diverticulosis Hemorrhoids Surgical menopause Rectal bleeding External hemorrhoids Seasonal allergies Endometrial polyp Varicose veins of both lower extremities Surgical History History of partial hysterectomy Hx of colonoscopy History of hysteroscopy History of section History of exploratory laparotomy Family History Father Diabetes mellitus HTN (hypertension) Stroke Mother Diabetes mellitus HTN (hypertension) CHF (congestive heart failure) Sister Fibromyalgia Arthritis Maternal Grandfather History of heart attack Maternal Grandmother No problems noted. Paternal Grandfather No problems noted. Paternal Grandmother No problems noted. Brother No problems noted. Brother No problems noted. Sister No problems noted. Sister No problems noted. Son No problems noted. Daughter No problems noted. Daughter No problems noted. Daughter No problems noted. Daughter No problems noted. Daughter No problems noted. 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 Cognitive needs: No Hearing needs: No Vision needs: No Female Reproductive History Menstrual Total pregnancies: 7 Full term: 6 Ab spontaneous: 1 Review of Systems Const Reports fatigue, Denies fever(s), Denies weakness and Denies weight loss Musc Denies muscle weakness Skin/Breast Reports erythema, Reports photosensitivity and Reports rash Neuro Denies weakness Endo Reports fatigue Physical Exam Vital Signs: Last Vital Signs Pulse 71 04/21/24 08:26 BP 115/60 04/21/24 08:26 Pulse Ox 98 04/21/24 08:26 Oxygen Delivery Method Room Air 04/21/24 08:26 BMI result Body Mass Index 28.7 Const General: cooperative, healthy appearing and comfortable Nutritional Appearance: overweight Orientation/consciousness: patient oriented x3 Limitations: no limitations HEENT Head: Yes normocephalic and Yes atraumatic Resp Effort & Inspection: normal respiratory effort and able to speak in complete sentences Cardio Rate: regular rate Rhythm: regular rhythm Skin Other: Erythematous rashes on face, upper chest and on extensor aspect of her arms and forearms Neuro General: patient oriented x3 Extrem Other: no active synovitis Proximal muscle strength 5/5 all 4 extremities Erythematous nail folds diffusely Bilateral knee crepitus Nailfold capillaroscopy shows: Few dilated loops on right 4th finger Results Reviewed Results Reviewed: Labs 11/2023? ERIN 1-80 speckled Chest skin biopsy 10/2023 Superficial and mild dermal perivascular dermatitis Note:? The biopsy contains a superficial and deep perivascular inflammatory infiltrate of lymphocytes.? Eosinophils are inconspicuous.? S subtle spongiosis is noted? The histologic findings are not specific.? Differential diagnosis would have to include a resolving dermal hypersensitivity response as well as a nonspecific phase of a connective tissue disease such as lupus.? Clinical correlation is advised Assessment & Plan Assessment & Plan (1) Dermatomyositis: Comment: dx 02/2024 (photosensitive skin rashes (biopsy proven), +dilated nailfold capillaroscopy, + ERIN +++TIF-1 Gamma) Code(s): M33.13 - Other dermatomyositis without myopathy Category: Medical Plan: This is a 53-year-old female with auto myositis who presents for follow-up. Patient took hydroxychloroquine for a few weeks and stopped it due to tremors. Extensive testing was done and no etiology was found. Patient continues to have the same rashes. She is cautious about using any medications at this time. My suspicion that tremors were triggered by hydroxychloroquine is not very high. This is not a common side effect. I suggested evaluation by a therapist/psychiatrist. Patient does not have any muscle weakness on exam. Labs before next visit in 4 months (2) Cancer screening: Code(s): Z12.9 - Encounter for screening for malignant neoplasm, site unspecified Category: Medical Plan: Discussed dermatomyositis and its association of skin cancer. We discussed age appropriate malignancy screening. Patient had a colonoscopy within the last 2 years which only showed diverticulosis. Mammogram was done 10/2023 showed BI-RADS 1. Ultrasound pelvis 10/2022, was not suggestive of malignancy. Patient is considered high risk for malignancy given dermatomyositis, positive TIF-1 gamma antibody & onset after age 40. PET scan was negative Plan I spent 27 minutes reviewing patient's chart, evaluating patient, ordering diagnostic workup, counseling patient and documenting in the chart Orders: Orders Complete Blood Count Auto Diff 4 Months M3. - Other dermatomyositis without myopathy Comprehensive Met. Panel 4 Months M33.13 - Other dermatomyositis without myopathy C Reactive Protein 4 Months M33.13 - Other dermatomyositis without myopathy Creatine Kinase Total 4 Months M33.13 - Other dermatomyositis without myopathy Erythrocyte Sedimentation Rate 4 Months M33.13 - Other dermatomyositis without myopathy Aldolase 4 Months M33.13 - Other dermatomyositis without myopathy Gamma Glutamyl Transpeptidase 4 Months M33.13 - Other dermatomyositis without myopathy Lactate Dehydrogenase 4 Months M33.13 - Other dermatomyositis without myopathy Thiopurine Methyltransferase 4 Months Z51.81 - Encounter for therapeutic drug level monitoring, Z79.624 - computer operator (current) use of inhibitors of nucleotide synthesis Coding Level of Care Code Est Pt Level 4 (37454) Diagnoses Dermatomyositis M33. Cancer screening Z12.9
[2024-04-21 08:26] VITALS: BP 115/60; PULSE 71; O2SAT 98; BMI 28.7
== END 2024-04-21 08:50 | disposition home or self-care (01) ==
PROVIDERS: PCP Internal Medicine; Visit Provider Student in an Organized Health Care Education/Training Program
DX: M33.13 Other dermatomyositis without myopathy (principal); Z12.9 Encounter for screening for malignant neoplasm, site unspecified
CPT/HCPCS: 99214

== ENCOUNTER → 2024-04-21 08:14 | Outpatient (BNVA) | payer BC, SELFPAY | PROVIDERS: PCP Internal Medicine; Visit Provider Student in an Organized Health Care Education/Training Program ==

== ENCOUNTER 2024-11-14 15:20 | Outpatient (REF) | payer BC, SELFPAY ==
--- OUTSIDE RECORDS SUMMARY | 2024-11-14 15:23 | XMS_ITS | Encounter Summary ---
Author Organization [facility] Address [address] [place] [address] Care Team Providers Care Manager Dairy Name Role Phone Susan Yanez MD Primary Care Provider [phone] Reason for Visit * Reason Comments Med Refill Encounter Details Date Type Department Care Team (Late st Contact Info) Description 11/07/2024 2:20 PM EST Office Visit Gastroenterology - [address] [place] [id number] Olena Davis PA [address] [place], [place] [phone] Irritable bowel syndrome with constipation (Primary Dx) Social History Tobacco Use Types Packs/Day Years Used Date Smoking Tobacco: Never Smokeless Tobacco: Never Alcohol Use Standard Drinks/Week Comments Not Currently 0 (1 standard drink = 0.6 oz pur e alcohol) Sex and Gender Information Value Date Recorded Sex Assigned at Not on file Gender Identity Not on file Sexual Orientation Not on file Job Start Date Occupation Industry Not on file Not on file Not on file documented as of this encounter Last Filed Vital Signs Vital Sign Reading Time Taken Comments Blood Pressure - - Pulse - - Temperature - - Respiratory Rate - - Oxygen Saturation - - Inhaled Oxygen Concentration - - Weight 67.1 kg (148 lb) 11/07/2024 2:19 PM EST Height 152.4 cm (5') 11/07/2024 2:19 PM EST Body Mass Index 28.9 11/07/2024 2:19 PM EST documented in this encounter Ordered Prescriptions Prescription Sig Dispensed Refills Start Date End Da te linaCLOtide (Linzess) 145 mcg capsuleIndications:Irrita ble bowel syndrome with constipation Take 1 capsule (145 mcg total) by mouth 1 (one) time each day. 90 each 3 11/07/2024 11/07/2025 documented in this encounter Progress Notes * LENCHO Villafuerte - 11/07/2024 2:20 PM EST Subjective Last Colononscopy/EGD: 09/2021 [facility] (10 yr) HPI: Angely Downs is a 53 y.o. old female who presents to the gastroenterology department today for a follow up on her IBS with constipation. Her bowel movement are stable with Linzess 145 mcg once a day. She had no GI concerns. Review of Systems Constitutional: Negative. Respiratory: Negative. Cardiovascular: Negative. Gastrointestinal: Negative. Genitourinary: Negative. PROBLEM LIST: Patient Active Problem List Diagnosis Pelvic pain PAST MEDICAL HISTORY: Past Medical History: Diagnosis Date Pelvic pain DX:Pelvic pain PAST SURGICAL HISTORY: Past Surgical History: Procedure Laterality Date HYSTERECTOMY PROCEDURE: HISTORICAL HYSTERECTOMY; COMMENT: CANDE 2003 SOCIAL HISTORY: Social History Tobacco Use Smoking status: Never Smokeless tobacco: Never Substance Use Topics Alcohol use: Not Currently FAMILY HISTORY: Family History Problem Relation Name Age of Onset Other (Other: heart attack) Mother 85.00 Other (Other: heart attack) Father 95.00 Breast cancer Neg Hx Colon cancer Neg Hx Pancreatic cancer Neg Hx Uterine cancer Neg Hx Ovarian cancer Neg Hx ACTIVE MEDICATIONS: Current Outpatient Medications Medication Sig Dispense Refill cetirizine (ZyrTEC) 10 mg tablet Take 1 tablet (10 mg total) by mouth. linaCLOtide (LINZESS) 145 mcg capsule Take by mouth daily. montelukast (SINGULAIR) 10 mg tablet Take 1 tablet (10 mg total) by mouth. linaCLOtide (Linzess) 145 mcg capsule Take 1 capsule (145 mcg total) by mouth 1 (one) time each day. 90 each 3 No current facility-administered medications for this visit. ALLERGIES: Allergies Allergen Reactions Levonorgestrel-Ethinyl Estrad Physical Exam Constitutional: Appearance: Normal appearance. HENT: Head: Normocephalic. Cardiovascular: Rate and Rhythm: Normal rate and regular rhythm. Pulmonary: Effort: Pulmonary effort is normal. Breath sounds: Normal breath sounds. Abdominal: General: Bowel sounds are normal. There is no distension. Palpations: Abdomen is soft. There is no mass. Tenderness: There is no abdominal tenderness. There is no guarding or rebound. Skin: General: Skin is warm. Neurological: Mental Status: She is alert and oriented to person, place, and time. Psychiatric: Mood and Affect: Mood normal. Behavior: Behavior normal. IMPRESSION: 1. Irritable bowel syndrome with constipation Assessment/Plan Assessment & Plan Irritable bowel syndrome with constipation Orders: linaCLOtide (Linzess) 145 mcg capsule; Take 1 capsule (145 mcg total) by mouth 1 (one) time each day. Stable. Continue Linzess 145 mcg qd F/U 1 yr LENCHO Villafuerte 2:36 PM EST documented in this encounter Plan of Treatment Not on file documented as of this encounter Visit Diagnoses Diagnosis Irritable bowel syndrome with constipation- Primary Irritable bowel syndrome documented in this encounter Historical Medications * This list may reflect changes made after this encounter. Medication Sig Dispensed Refills Start Date End Date cetirizine (ZyrTEC) 10 mg tablet Take 1 tablet (10 mg total) by mouth. montelukast (SINGULAIR) 10 mg tablet Take 1 tablet (10 mg total) by mouth. added in this encounter Care Teams Manager Dairy Relationship Specialty Start Date End Date Susan Yanez MD [address] [place] [address] PCP - General Internal Medicine 08/19/21 documented as of this encounter
--- OUTSIDE RECORDS SUMMARY | 2024-11-14 15:23 | XMS_ITS | Clinical Summary ---
Author Organization [facility] [address] [facility] [place] Address [address] [place] [phone] Phone Care Team Providers Care Revenue Liaison Name Role Phone Susan Yanez MD Primary Care Provider [phone] Allergies Active Allergy Reactions Criticality Noted Date Comments Levonorgestrel-Ethinyl Estrad 2022 Medications Medication Sig Dispensed Refills Start Date End Date Status linaCLOtide (LINZESS) 145 mcg capsule Take by mouth daily. Active montelukast (SINGULAIR) 10 mg tablet Take 1 tablet (10 mg total) by mouth. Active cetirizine (ZyrTEC) 10 mg tablet Take 1 tablet (10 mg total) by mouth. Active linaCLOtide (Linzess) 145 mcg capsuleIndications:Irr itable bowel syndrome with constipation Take 1 capsule (145 mcg total) by mouth 1 (one) time each day. 90 each 3 11/07/2024 11/07/2025 Active Active Problems Problem Noted Date Diagnosed Date Dermatomyositis 11/07/2024 Pelvic pain 12/02/2022 Overview (10/29/2024): Last Assessment & Plan: Exam benign today. Most recent pelvic US from [facility] reviewed - follicular cyst noted on ovary, no need to follow-up. I have asked the patient to sign CARLOS A from [place] again so that I may review operative report and pathology as well as previousy OB visit records. Patient in agreement. Encounters Date Type Department Care Team Description 11/07/2024 2:20 PM EST Office Visit Gastroenterology - [address] [facility] [address] [place] [address] [place] [phone] Olena Davis PA Irritable bowel syndrome with constipation (Primary Dx) from Last 3 Months Surgical History Surgery Date Site/Laterality Comments HYSTERECTOMY PROCEDURE: HISTORICAL HYSTERECTOMY; COMMENT: CANDE 2003 COLONOSCOPY 09/14/2021 - 10/14/2021 [facility] (10yr) SECTION, LOW TRANSVERSE Medical History Medical History Date Comments Pelvic pain DX:Pelvic pain Family History Medical History Relation Name Comments Other: heart attack Father Other: heart attack Mother Breast cancer Neg Hx Colon cancer Neg Hx Ovarian cancer Neg Hx Pancreatic cancer Neg Hx Uterine cancer Neg Hx Relation Name Status Comments Father Mother Social History Tobacco Use Types Packs/Day Years [...] file Not on file Not on file Obstetrics History Last Filed Vital Signs Vital Sign Reading Time Taken Comments Blood Pressure 137/97 12/01/2022 10:40 AM EST Pulse 75 12/01/2022 10:40 AM EST Temperature - - Respiratory Rate - - Oxygen Saturation - - Inhaled Oxygen Concentration - - Weight 67.1 kg (148 lb) 11/07/2024 2:19 PM EST Height 152.4 cm (5') 11/07/2024 2:19 PM EST Body Mass Index 28.9 11/07/2024 2:19 PM EST Plan of Treatment Health Maintenance Due Date Last Done Comments Breast Cancer Screening 1972 DTaP,Tdap,and Td Vaccines (1 - Tdap) 1991 Hepatitis B Vaccines (1 of 3 - 19+ 3-dose series) 1991 Cervical Cancer Screening: P ap Smear 1993 Colorectal Cancer Screening: Colonoscopy 09/17/2022 Depression Screening 09/17/2022 HIV Screening 09/17/2022 Hepatitis C Screening 09/17/2022 Social Influencers of Health Screening 09/17/2022 Zoster Vaccines (1 of 2) 2022 COVID-19 Vaccine (3 - 2023-2 5 season) 2024 02/22/2021, 02/01/2021 Influenza Vaccine (#1) 2024 HIB Vaccines Aged Out No longer eligi ble based on patient's age to complete this topic HPV Vaccines Aged Out No longer eligi ble based on patient's age to complete this topic Hepatitis A Vaccines Aged Out No long er eligible based on patient's age to complete this topic IPV Vaccines Aged Out No longer eligi ble based on patient's age to complete this topic MMR Vaccines Aged Out No longer eligi ble based on patient's age to complete this topic Meningococcal ACWY Vaccine Aged Out N o longer eligible based on patient's age to complete this topic Pneumococcal Vaccine: Pediatrics (0 to 5 Years) and At-Risk Patients (6 to 64 Years) Aged Out No longer eligible b ased on patient's age to complete this topic RSV Immunization Patients Under 20 months Aged Out No longer eligible b ased on patient's age to complete this topic Varicella Vaccines Aged Out No longer eligible based on patient's age to complete this topic Care Teams Revenue Liaison Relationship Specialty Start Date End Date Susan Yanez MD [address] [place], [place] [id number] PCP - General Internal Medicine 08/19/21
== END 2024-11-14 15:21 | disposition home or self-care (01) ==
LOC: HO.MAMMO 15:20
PROVIDERS: PCP Internal Medicine; Visit Provider Internal Medicine
DX: Z12.31 Encounter for screening mammogram for malignant neoplasm of breast (principal)
CPT/HCPCS: 77063; 77067

== ENCOUNTER → 2024-11-14 15:30 | Outpatient (BNV) | payer BC, SELFPAY | PROVIDERS: PCP Internal Medicine; Visit Provider Internal Medicine | DX: Z12.31 Encounter for screening mammogram for malignant neoplasm of breast (principal) | CPT/HCPCS: 77063; 77067 ==

== ENCOUNTER 2024-12-22 08:43 | Outpatient (REF) | payer BC, SELFPAY ==
--- OUTSIDE RECORDS SUMMARY | 2024-12-22 10:51 | XMS_ITS | Clinical Summary ---
Author Organization [facility] [address] [facility] [address] Address [address] [place] [phone] Phone Care Team Providers Care Stemhole Borer And Topper Name Role Phone Susan Yanez MD Primary Care Provider [phone] Allergies Active Allergy Reactions Criticality Noted Date [...] benign today. Most recent pelvic US from [facility] reviewed - follicular cyst noted on ovary, no need to follow-up. I have asked the patient to sign CARLOS A from [place] again so that I may review operative report and pathology as well as previousy OB visit records. Patient in agreement. Encounters Date Type Department Care Team Description 11/07/2024 2:20 PM EST Office Visit Gastroenterology - [address] [facility] [address] [place] [address] Olena Davis PA Irritable bowel syndrome with constipation (Primary Dx) from Last 3 Months Surgical History Surgery Date Site/Laterality Comments HYSTERECTOMY PROCEDURE: HISTORICAL HYSTERECTOMY; COMMENT: CANDE 2003 COLONOSCOPY 09/14/2021 - 10/14/2021 [facility] (10yr) SECTION, LOW TRANSVERSE Medical History [...] patient's age to complete this topic Insurance [facility] Care Teams Stemhole Borer And Topper Relationship Specialty Start Date End Date Susan Yanez MD [address] [place], [place] [phone] PCP - General Internal Medicine 08/19/21
[2024-12-22 14:01] LABS: Alanine Aminotransferase 31 U/L (0-31); Anion Gap 9 (12-20); Aspartate Amino Transferase 32 U/L (5-31); Blood Urea Nitrogen 11 mg/dL (9-16); Calcium 9.6 mg/dL (8.4-10.2); Carbon Dioxide 28 mmol/L (22-29); Chloride 108 mmol/L (96-108); Cholesterol 181 mg/dL (<200); Estimated Glomerular Filt Rate > 60; Glucose Fasting 123 mg/dL (60-99); HDL Cholesterol 61 mg/dL (>40); LDL Cholesterol Calculated 105 mg/dL (<100); Potassium 4.4 mmol/L (3.3-5.1); Sodium 141 mmol/L (135-145); Triglycerides 76 mg/dL (<150)
[2024-12-22 14:03] LABS: Vitamin D 25-OH Total 50.9 ng/mL (>30)
== END 2024-12-22 08:44 | disposition home or self-care (01) ==
LOC: HO.HMGCLDS 08:43
PROVIDERS: PCP Internal Medicine; Visit Provider Internal Medicine
DX: Z00.01 Encounter for general adult medical examination with abnormal findings (principal); Z13.6 Encounter for screening for cardiovascular disorders; E55.9 Vitamin D deficiency, unspecified; J30.2 Other seasonal allergic rhinitis; R73.01 Impaired fasting glucose; M33.13 Other dermatomyositis without myopathy; E89.40 Asymptomatic postprocedural ovarian failure; Z71.89 Other specified counseling
CPT/HCPCS: 36415; 80048; 80061; 82306; 84450; 84460; 96127

== ENCOUNTER 2024-12-22 08:43 | Outpatient (AMB) | payer BC, SELFPAY ==
--- NOTE | 2024-12-22 09:04 | A.OFFPC_ITS ---
Vital Signs 12/22/24 09:09 Height 5 ft Weight 145 lb BMI 28.3 BP 102/70 Blood Pressure Location Lt brachial Position Sitting Respiration 18 Pulse 83 Pulse Source Pulse Oximeter Temp 98.3 F Temp Source Oral Pulse Oximetry (%) 98 Oxygen Delivery Method Room Air Intake Visit Reasons: Annual PE Intake Note: Pt is here today for her PE: last mammogram 11/14/24, colonscopy 09/23/21 Allergies hydroxychloroquine Allergy (Severe, Verified 12/22/24 09:26) Dizziness Medication List - Last Reconciled 12/22/24 by Susan Yanez MD cetirizine (All Day Allergy (cetirizine)) 10 mg PO DAILY fexofenadine 180 mg PO DAILY linaclotide (Linzess) 145 mcg PO DAILY montelukast 10 mg PO BEDTIME Tobacco use date assessed: 12/22/24 Dental Screening Dental Screen Date: 12/22/24 Did you have a dental visit in the last 12 months?: No Did you have a dental problem in the last 6 months where you did not have access to dental care?: No Was dental information given to patient?: Patient has dentist HPI Annual PE HPI Details 54-year-old lady with history of seasona l allergies,, IBS with constipation currently on Linzess, has surgical menopause , here today for her physical exam. She is up-to-date with her screening mammogram, done this year 11/14/2024 with benign findings. Up-to-date with her screening colonoscopy done by Dr. Downs in 2020 which showed presence of hemorrhoids and diverticulosis.. No longer gets Pap smears due to partial hysterectomy done in 2003. FORMERLY [facility], [facility] Medical History (Updated 12/22/24 @ 09:53 by Susan Yanez MD) Vaccine refused by patient Dermatomyositis Irritable bowel syndrome with constipation Chronic pruritic rash in adult Gallbladder polyp Vitamin D deficiency Impaired fasting glucose Diverticulosis Surgical menopause Rectal bleeding External hemorrhoids Seasonal allergies Endometrial polyp Varicose veins of both lower extremities Surgical History History of partial hysterectomy Hx of colonoscopy History of hysteroscopy History of section History of exploratory laparotomy Family History Father Diabetes mellitus HTN (hypertension) Stroke Mother Diabetes mellitus HTN (hypertension) CHF (congestive heart failure) Sister Fibromyalgia Arthritis Maternal Grandfather History of heart attack Maternal Grandmother No problems noted. Paternal Grandfather No problems noted. Paternal Grandmother No problems noted. Brother No problems noted. Brother No problems noted. Sister No problems noted. Sister No problems noted. Son No problems noted. Daughter No problems noted. Daughter No problems noted. Daughter No problems noted. Daughter No problems noted. Daughter No problems noted. 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 1. Little interest or pleasure in doing things: not at all 2. Feeling down, depressed, or hopeless: not at all 3. Trouble falling or staying asleep, or sleeping too much: not at all 4. Feeling tired or having little energy: not at all 5. Poor appetite or overeating: not at all 6. Feeling bad about yourself - or that you are a failure or have let yourself or your family down: not at all 7. Trouble concentrating on things, such as reading the newspaper or watching television: not at all 8. Moving or speaking so slowly that other people could have noticed. Or the opposite - being so fidgety or restless that you have been moving around a lot more than usual: not at all 9. Thoughts that you would be better off or of hurting yourself in some way: not at all Total score: 0 Depression Screening Interpretation: Negative Depression Screening Done: Yes 60638 - PHQ-9 Billing: Yes Source: Developed by Drs. Kali Gomez, Miryam Rosenthal, Lee Galloway and colleagues, with an educational may from [employer]. Thrive Questionnaire Date Thrive assessed: 12/19/24 I am a: Patient What is your living situation today?: I have a steady place to live Within the past 12 months, did the food you bought not last and you didn't have the money to get more?: Never true Within the past 12 months, did you worry whether your food would run out before you got money to buy more?: Never true Do you have trouble paying for medicines?: No Do you have trouble getting transportation to medical appointments?: No Do you have trouble paying your heating and electricity bill?: No Do you have trouble taking care of your child, family member or friend?: No Do you have trouble with day-to-day activities such as bathing, preparing meals, shopping, managing finances, etc.?: No Are you currently unemployed and looking for a job?: No Are you interested in more education?: No Please select the resources that you would like help with: None Currently or been in a relationship where the following occur: No concerns rep orted THRIVE Score: 0 AUDIT C Alcohol Use Questionnaire (AUDIT-C) 1. How often do you have a drink containing alcohol?: Never Total Score: 0 DIANNA-7 AMB Questionnaire DIANNA-7 Date DIANNA - 7 assessed: 12/22/24 Feeling nervous, anxious, or on edge: 0 = Not at all Not being able to stop or control worryin = Not at all Worrying too much about different things: 0 = Not at all Trouble relaxin = Not at all Being so restless that it is hard to sit still: 0 = Not at all Becoming easily annoyed or irritable: 0 = Not at all Feeling afraid as if something awful might happen: 0 = Not at all Total DIANNA-7 score (0-4 normal; 5-9 mild; 10-14 moderate; 15-21 severe): 0 Source: Developed by Drs. Kali Gomez, Miryam Rosenthal, Lee Galloway and colleagues, with an educational may from [employer]. DIANNA-7 Assessment Billing DIANNA-7 Assessment Tool: DIANNA-7 Assessment 26598 Review of Systems Const Reports no additional complaints Eyes Details: followed at [facility] ENT Reports no additional complaints Card Denies chest pain at rest, Denies chest pain with activity, Denies palpitations and Denies dyspnea Resp Denies cough and Denies dyspnea GI Denies abdominal pain, Denies melena, Denies bloating, Denies hematochezia and Denies heartburn Reports no additional complaints Musc Denies joint swelling and Denies limited range of motion Skin/Breast Denies breast skin changes, Denies breast pain and Denies breast mass Neuro Reports no additional complaints Psych Reports no additional complaints Endo Denies palpitations [place]/Lymph Denies easy bleeding and Denies easy bruising Aller/Immun Reports seasonal rhinorrhea Physical exam (Primary Care) Vital Signs: Last Vital Signs Temp 98.3 F 12/22/24 09:09 Pulse 83 12/22/24 09:09 Resp 18 12/22/24 09:09 BP 102/70 12/22/24 09:09 Pulse Ox 98 12/22/24 09:09 Oxygen Delivery Method Room Air 12/22/24 09:09 BMI result Body Mass Index 28.3 Tobacco/Smoking Status: Tobacco use Status Tobacco use date assessed 12/22/24 12/22/24 09:11 Patient Tobacco Use Status Never used Tobacco 12/22/24 09:11 e-Cigarette/Vaping Use Never Used 12/22/24 09:11 PHQ-9: PHQ-9 Score PHQ-9: Total score 0 12/24/24 01:37 Depression Screening Interpretation: Negative Thrive Assessment: Date of Thrive Assessment Date Thrive assessed 12/19/24 12/22/24 09:11 Currently or been in a relationship where the following occur: No concerns reported Advance Care Planning discussion: Completed/Scanned Date of discussion: 12/22/24 Who was present: Patient Forms completed: Health Care Proxy Time spent: 16-45 minutes Actual minutes spent: 3 Const General: comfortable, no acute distress and alert Nutritional Appearance: overweight Orientation/consciousness: patient oriented x3 HENMT Mouth: Normal oral and palatal mucosa present, oropharynx normal and moist mucous membranes Eyes General: appearance normal, both eyes and all related structures Periorbital: periorbital findings normal Eyelids: Yes eyelids normal Conjunctivae: conjunctivae normal Sclerae: sclerae normal Pupils: Equal, round and reactive pupils present EOM: EOMs intact bilaterally Neck Neck: Yes full ROM, Yes no lymphadenopathy and Yes supple Thyroid: Thyroid normal Chest Breast/axilla inspection: normal inspection of the breasts Breast/axilla palpation: normal palpation of the breasts Resp Auscultation: clear to auscultation bilaterally Cardio Rate: regular rate Rhythm: regular rhythm Heart sounds: S1 normal heart sound present and S2 normal heart sound present GI Inspection: Yes normal to inspection Palpation (GI): Soft to palpation, nontender, no guarding and no masses General: Yes no CVA tenderness Back/Spine/Pelvis Back: no CVA tenderness Skin Other: Erythematous rash on both wrists , and upper chest Neuro General: patient oriented x3, gait normal, moves all extremities, Normal light touch and pain sensation and no focal motor deficits Cranial nerves: Yes Equal, round and reactive pupils present Extrem General: Yes full ROM, Yes no joint enlargement, Yes no clubbing, cyanosis or edema and Yes normal gait Psych Appearance: grossly normal and well kempt Mental Status: mental status grossly normal Speech and movement: Normal speech and movement present Affect: normal affect Attitude: cooperative Thought process: Normal thought process present Thought content: Normal thought content present Coding Level of Care Code Est Pt Prev Care 40-64y(43534) Diagnoses Annual visit for general adult medical examination with abnormal findings Z00. Dermatomyositis M33.13 Seasonal allergies J30.2 Impaired fasting glucose R73.01 Encounter for counseling regarding advance directives Z71.89 Vaccine refused by patient Z28.20 Additional Codes DIANNA-7 Assessment Billing - DIANNA-7 Assessment Tool: DIANNA-7 Assessment 36791 ([id number]) PHQ-9 - 50658 - PHQ-9 Billing: Yes ([id number]) Vital Signs *Quality* - Advance Care Planning discussion: Completed/Scanned ([id number]) Vital Signs *Quality* - Time spent: 16-45 minutes ([id number]) Assessment & Plan Assessment & Plan (1) Annual visit for general adult medical examination with abnormal findings: Code(s): Z00.01 - Encounter for general adult medical examination with abnormal findings Plan: Will check appropriate labs. Recommended dental visit every 6 months and regular eye exams, at least every 2 years. Take adequate calcium in diet and vitamin-D 3 at 2000 IU per cap once a day, in addition to weight-bearing exercises to help maintain good muscle tone and weight control. Instructed to do self-breast exam, and continue with screening mammogram, currently up-to-date. Had her screening colonoscopy done by Dr. Downs in 2020 which only showed presence of and diverticulosis, repeat colonoscopy in 2030 (2) Dermatomyositis: Comment: dx 02/2024 (photosensitive skin rashes (biopsy proven), +dilated nailfold capillaroscopy, + ERIN +++TIF-1 Gamma) Code(s): M33.13 - Other dermatomyositis without myopathy Category: Medical Plan: Currently asymptomatic , not on any medications at present (3) Seasonal allergies: Comment: Currently being seen by Dr. chambers and started allergy shots several weeks ago Code(s): J30.2 - Other seasonal allergic rhinitis Category: Medical Plan: Continued on montelukast 10 mg daily and cetirizine as needed (4) Impaired fasting glucose: Code(s): R73.01 - Impaired fasting glucose Category: Medical Plan: Your previous fasting blood sugars were elevated above 100 mg/dL. Impaired glucose metabolism increases the risk for developing diabetes mellitus type 2, as well as heart attack and stroke later on. Lifestyle changes that promotes weight loss, healthy eating habits, and regular exercise are important, and can prevent the progression to diabetes (5) Encounter for counseling regarding advance directives: Code(s): Z71.89 - Other specified counseling Plan: Initiated the conversation about Advanced Directives. Advanced Directives help patients prepare for current and future decisions about their medical treatment and place of care. Discussed with patient that it is a process where a patients current condition and prognosis are reviewed, their wishes for information regarding their illness are elicited, and likely medical dilemmas are presented and options discussed. Healthcare proxy form completed today. The form can be amended as needed, reviewed yearly and make changes as needed (6) Vaccine refused by patient: Code(s): Z28.20 - Immunization not carried out because of patient decision for unspecified reason Category: Medical Plan: Patient declined getting any vaccines Orders: Orders Basic Metabolic Panel Fasting 12/22/24 E55.9 - Vitamin D deficiency, unspecifie d, E89.40 - Asymptomatic postprocedural ovarian failure, J30.2 - Other seasonal allergic rhinitis, M33.13 - Other dermatomyositis without myopathy, R73.01 - Impaired fasting glucose, Z00.01 - Encounter for general adult medical examination with abnormal findings, Z13.220 - Encounter for screening for lipoid disorders, Z71.89 - Other specified counseling Lipid Panel 12/22/24 E55.9 - Vitamin D deficiency, unspecified, E89.40 - Asymptomatic postprocedural ovarian failure, J30.2 - Other seasonal allergic rhinitis, M33.13 - Other dermatomyositis without myopathy, R73.01 - Impaired fasting glucose, Z00.01 - Encounter for general adult medical examination with abnormal findings, Z13.220 - Encounter for screening for lipoid disorders, Z71.89 - Other specified counseling Vitamin D 25-OH Total 12/22/24 E55.9 - Vitamin D deficiency, unspecified, E89.40 - Asymptomatic postprocedural ovarian failure, J30.2 - Other seasonal allergic rhinitis, M33.13 - Other dermatomyositis without myopathy, R73.01 - Impaired fasting glucose, Z00.01 - Encounter for general adult medical examination with abnormal findings, Z13.220 - Encounter for screening for lipoid disorders Aspartate Amino Transferase 12/22/24 E55.9 - Vitamin D deficiency, unspecified, E89.40 - Asymptomatic postprocedural ovarian failure, J30.2 - Other seasonal allergic rhinitis, M33.13 - Other dermatomyositis without myopathy, R73.01 - Impaired fasting glucose, Z00.01 - Encounter for general adult medical examination with abnormal findings, Z13.220 - Encounter for screening for lipoid disorders, Z71.89 - Other specified counseling Alanine Aminotransferase 12/22/24 E55.9 - Vitamin D deficiency, unspecified, E89.40 - Asymptomatic postprocedural ovarian failure, J30.2 - Other seasonal allergic rhinitis, M33.13 - Other dermatomyositis without myopathy, R73.01 - Impaired fasting glucose, Z00.01 - Encounter for general adult medical examination with abnormal findings, Z13.220 - Encounter for screening for lipoid disorders, Z71.89 - Other specified counseling Medications: Refilled cetirizine (All Day Allergy (cetirizine)) 10 mg PO DAILY 90 tabs 1RF montelukast 10 mg PO BEDTIME 90 tabs 4RF
--- OUTSIDE RECORDS SUMMARY | 2024-12-22 09:05 | XMS_ITS | Clinical Summary ---
Author Organization [facility] [address] [facility] [address] Address [address] [place] [phone] Phone Care Team Providers Care Yarrow Gatherer Name Role Phone Susan Yanez MD Primary Care Provider [phone] Allergies Active Allergy Reactions Criticality Noted Date Comments Levonorgestrel-Ethinyl Estrad 2022 Medications linaCLOtide (LINZESS) 145 mcg capsule Take by mouth daily. Active montelukast (SINGULAIR) 10 mg tablet Take 1 tablet (10 mg total) by mouth. Active cetirizine (ZyrTEC) 10 mg tablet Take 1 tablet (10 mg total) by mouth. Active linaCLOtide (Linzess) 145 mcg capsuleIndication s:Irritable bowel syndrome with constipation Take 1 capsule (145 mcg total) by mouth 1 (one) time each day. 90 each 3 5 11/07/19 26 Active Active Problems Problem Noted Date Diagnosed Date Dermatomyositis 11/07/2024 Pelvic pain 12/02/2022 Overview (10/29/2024): Last Assessment & Plan: Exam benign today. Most recent pelvic US from [facility] reviewed - follicular cyst noted on ovary, no need to follow-up. I have asked the patient to sign CARLOS A from [place] again so that I may review operative report and pathology as well as previousy OB visit records. Patient in agreement. Encounters Date Type Department Care Team Description 11/07/2024 2:20 PM EST Office Visit Gastroenterology - [address] [facility] [address] [place] [address] Olena Davis PA Irritable bowel syndrome with constipation (Primary Dx) from Last 3 Months Surgical History Surgery Date Site/Laterality Comments HYSTERECTOMY PROCEDURE: HISTORICAL HYSTERECTOMY; COMMENT: CANDE 2003 COLONOSCOPY 09/14/2021 - 10/14/2021 [facility] (10yr) SECTION, LOW TRANSVERSE Medical History [...] drink = 0.6 oz pur e alcohol) Comments Unknown Sex and Gender Information Value Date Recorded Sex Assigned at Not on file Legal Sex Female 11:36 PM EST Gender Identity Not on file Sexual Orientation Not on file Obstetrics History Last Filed [...] 09/17/2022 Social Influencers of Health Screening 09/17/2022 Pneumococcal Vaccine: 50+ Years (1 of 1 - PCV) 2022 Zoster Vaccines (1 of 2) 2022 COVID-19 Vaccine (3 - 2024-2 5 season) 2024 02/22/2021, 02/01/2021 Influenza Vaccine [...] patient's age to complete this topic Meningococcal B Vacine Aged Out No lo nger eligible based on patient's age to complete [...] on patient's age to complete this topic Insurance [facility] Care Teams Yarrow Gatherer Relationship Specialty Start Date End Date Susan Yanez MD [address] [place], [place] [id number] PCP - General Internal Medicine 08/19/21
[2024-12-22 09:09] VITALS: BP 102/70; PULSE 83; RESP 18; TEMP 36.8; O2SAT 98; BMI 28.3
== END 2024-12-22 09:52 | disposition home or self-care (01) ==
PROVIDERS: PCP Internal Medicine; Visit Provider Internal Medicine
DX: Z00.01 Encounter for general adult medical examination with abnormal findings (principal); M33.13 Other dermatomyositis without myopathy; J30.2 Other seasonal allergic rhinitis; R73.01 Impaired fasting glucose; Z71.89 Other specified counseling; Z28.20 Immunization not carried out because of patient decision for unspecified reason; Z00.00 Encounter for general adult medical examination without abnormal findings

== ENCOUNTER 2025-03-27 14:36 | Outpatient (AMB) | payer BC, SELFPAY ==
--- NOTE | 2025-03-27 14:38 | AM.OFFWIN_ITS ---
Intake Vital Signs 03/27/25 14:50 Height 5 ft Weight 145 lb 8 oz BMI 28.4 BP 118/86 Blood Pressure Location Lt brachial Position Sitting Pulse 75 Pulse Source Pulse Oximeter Temp 97.9 F Temp Source Oral Pulse Oximetry (%) 98 Oxygen Delivery Method Room Air Intake Visit Reasons: EP rash on LT hand Intake Note: Pt presents to the office today for c/o rash on her left palm x2 months. Pt states it can be painful and itchy at times. Pt states over the past 2 months it has increased in size. Patient Tobacco Use Status: Never used Tobacco Allergies hydroxychloroquine Allergy (Severe, Verified 03/27/25 14:46) Dizziness HPI HPI Comments History of Present Illness Details History - The patient is a 54-year-old female pr esenting with a rash on her left hand for a few months - The eczema is characterized by very it cinthia, dry, and painful skin on the hands. - The patient reports a tingly sensation and a history of a lump on her finger of the same hand that has decreased in size but was previously painful. - The condition has progressively worsen ed despite the use of various lotions, triple antibiotic ointment, Aquaphor, and oils. Physical Exam Physical Exam General: Cooperative, healthy appearing, comfortable, no acute distress and well developed Orientation: Patient oriented x3 Limitations: No limitations Head: Normal to inspection Ears: Hearing grossly normal bilaterally Nose: Normal External nose present Face and sinus: Normal facial exam Mouth: normal, moist oral mucosa Eyes: Appearance normal, both eyes and all related structures Neck: Normal visual inspection and Yes full ROM Respiratory: Normal respiratory effort and able to speak in complete sentences. Skin: palmar aspect of left hand has 1.75cm round area of dry,cracked skin with erythema. No ecchymosis, no drainage. Neuro: Patient oriented x3 Extremities: moving all extremities normally [facility] Medical History (Updated 03/27/25 @ 15:01 by Orly Gilbert PA-C) Vaccine refused by patient Dermatomyositis Irritable bowel syndrome with constipation Chronic pruritic rash in adult Gallbladder polyp Vitamin D deficiency Impaired fasting glucose Diverticulosis Surgical menopause Rectal bleeding External hemorrhoids Seasonal allergies Endometrial polyp Varicose veins of both lower extremities Surgical History History of partial hysterectomy Hx of colonoscopy History of hysteroscopy History of section History of exploratory laparotomy Family History Father Diabetes mellitus HTN (hypertension) Stroke Mother Diabetes mellitus HTN (hypertension) CHF (congestive heart failure) Sister Fibromyalgia Arthritis Maternal Grandfather History of heart attack Maternal Grandmother No problems noted. Paternal Grandfather No problems noted. Paternal Grandmother No problems noted. Brother No problems noted. Brother No problems noted. Sister No problems noted. Sister No problems noted. Son No problems noted. Daughter No problems noted. Daughter No problems noted. Daughter No problems noted. Daughter No problems noted. Daughter No problems noted. 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 Cognitive needs: No Hearing needs: No Vision needs: Yes Review of Systems Const All systems reviewed & are unremarkable except as noted in HPI and below Physical Exam Vital Signs: Last Vital Signs Temp 97.9 F 03/27/25 14:50 Pulse 75 03/27/25 14:50 BP 118/86 03/27/25 14:50 Pulse Ox 98 03/27/25 14:50 Oxygen Delivery Method Room Air 03/27/25 14:50 BMI result Body Mass Index 28.4 Assessment & Plan Assessment & Plan (1) Eczema: Code(s): L30.9 - Dermatitis, unspecified Qualifiers: Eczema type: other Qualified Code(s): L30.8 - Other specified dermatitis Plan: - The patient has been prescribed clobetasol cream, a potent topical steroid, twice daily for 7 to 10 days. - Advised to avoid application near the eyes and genitals and to wash fingertips after use. - Recommended using a Q-tip for application to prevent skin changes on the fingertips. - Follow up with us if no improvement Medications: New clobetasol 0.05% Do not use on hands face or genitals. Please wash your hands after applying this medication or use gloves 1 appl topical BID 30 grams 0RF 1 week Coding Level of Care Code Est Pt Level 3 (31508) Diagnoses Other eczema L30.8 Eczema type: other
[2025-03-27 14:50] VITALS: BP 118/86; PULSE 75; TEMP 36.6; O2SAT 98; BMI 28.4
== END 2025-03-27 15:02 | disposition home or self-care (01) ==
PROVIDERS: PCP Internal Medicine; Visit Provider Physician Assistant
DX: L30.8 Other specified dermatitis (principal)

== ENCOUNTER → 2025-03-27 14:36 | Outpatient (BNVA) | payer BC, SELFPAY | PROVIDERS: PCP Internal Medicine ==

== ENCOUNTER 2025-04-03 14:35 | Outpatient (AMB) | payer BC, SELFPAY ==
--- OUTSIDE RECORDS SUMMARY | 2025-04-03 14:37 | XMS_ITS | Clinical Summary ---
Author Organization [facility] [address] [facility] Address [address] [place] [address] Phone Care Team Providers Care Collar Folder Operator Name Role Phone Susan Yanez MD Primary Care Provider [phone] Allergies Active Allergy Reactions Criticality Noted Date [...] Problems Problem Noted Date Diagnosed Date Dermatomyositis (CMS/HCC V24, CMS/HCC V28) 11/07 Pelvic pain 12/02/2022 Overview (10/29/2024): Last Assessment & Plan: Exam benign today. Most recent pelvic US from [facility] reviewed - follicular cyst noted on ovary, no need to follow-up. I have asked the patient to sign CARLOS A from [place] again so that I may review operative report and pathology as well as previousy OB visit records. Patient in agreement. Surgical History Surgery Date Site/Laterality Comments HYSTERECTOMY PROCEDURE: HISTORICAL HYSTERECTOMY; COMMENT: CANDE 2003 COLONOSCOPY 09/14/2021 - 10/14/2021 [facility] (10yr) SECTION, LOW TRANSVERSE Medical History [...] 5 season) 2024 02/22/2021, 02/01/2021 Influenza Vaccine (Season Ended) 2025 HIB Vaccines Aged Out No longer eligi [...] age to complete this topic Meningococcal B Vaccine Aged Out No l onger eligible based on patient's age to complete [...] patient's age to complete this topic Insurance [facility] Care Teams Collar Folder Operator Relationship Specialty Start Date End Date Susan Yanez MD [address] [place] [address] PCP - General Internal Medicine 08/19/21
--- NOTE | 2025-04-03 14:38 | MHC.OFFWIV ---
Intake Vital Signs 04/03/25 14:39 Height 5 ft Weight 147 lb BMI 28.7 BP 116/72 Blood Pressure Location Lt brachial Position Sitting Pulse 77 Pulse Source Pulse Oximeter Temp 97.8 F Temp Source Oral Pulse Oximetry (%) 97 Oxygen Delivery Method Room Air Intake Visit Reasons: EP rash Patient Tobacco Use Status: Never used Tobacco Allergies hydroxychloroquine Allergy (Severe, Verified 04/03/25 14:43) Dizziness Do you need a note to return to daycare/school/sports/work: No HPI HPI Comments History of Present Illness Details History - The patient is a 54-year-old female presenting with management of chronic rash exacerbated by heat and sweating. - The rash is persistent and worsens with heat and sweating, causing a prickly sensation, particularly on the back of the neck. - The patient does not currently have a environmental lead and has an upcoming appointment in May with the [facility] treatment center. - The rash becomes very itchy, especially at night, and prednisone has been effective in managing the symptoms. - The patient has previously been prescribed prednisone in a tapering dose by her environmental lead. - She has a follow up appt in May. 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 - She has tried several creams with no relief of her symptoms. - She denies fever, chills, CP, SOB. - She denies new lotions, soaps, detergents, medications, clothes, bug bites, pets, or travel. Physical Exam General: Cooperative, healthy appearing, comfortable, no acute distress and well developed Orientation: Patient oriented x3 Limitations: No limitations Mouth: normal, moist oral mucosa Neck: Normal visual inspection and Yes full ROM Respiratory: Normal respiratory effort and able to speak in complete sentences. Clear to auscultation bilaterally. No w/r/r noted. Cardiovascular: RRR, no m/r/g noted. Normal S1 and S2 Skin: Diffuse erythematous blanchable non-tender dry flat rash noted on the arms, chest, posterior neck. Patient was informed and verbally consented to the use of an ambient scribe for clinic note documentation during this visit [facility] Medical History (Updated 03/27/25 @ 15:01 by Orly Gilbert PA-C) Vaccine refused by patient Dermatomyositis Irritable bowel syndrome with constipation Chronic pruritic rash in adult Gallbladder polyp Vitamin D deficiency Impaired fasting glucose Diverticulosis Surgical menopause Rectal bleeding External hemorrhoids Seasonal allergies Endometrial polyp Varicose veins of both lower extremities Surgical History History of partial hysterectomy Hx of colonoscopy History of hysteroscopy History of section History of exploratory laparotomy Family History Father Diabetes mellitus HTN (hypertension) Stroke Mother Diabetes mellitus HTN (hypertension) CHF (congestive heart failure) Sister Fibromyalgia Arthritis Maternal Grandfather History of heart attack Maternal Grandmother No problems noted. Paternal Grandfather No problems noted. Paternal Grandmother No problems noted. Brother No problems noted. Brother No problems noted. Sister No problems noted. Sister No problems noted. Son No problems noted. Daughter No problems noted. Daughter No problems noted. Daughter No problems noted. Daughter No problems noted. Daughter No problems noted. 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 - Follow up with rheumatology in May. Medications: New methylprednisolone PO PER PKG DIR for 6 days 21 ea 0RF Coding Level of Care Code Est Pt Level 3 (40195) Diagnoses Rash R21
[2025-04-03 14:39] VITALS: BP 116/72; PULSE 77; TEMP 36.6; O2SAT 97; BMI 28.7
== END 2025-04-03 15:43 | disposition home or self-care (01) ==
PROVIDERS: PCP Internal Medicine; Visit Provider Physician Assistant Medical
DX: R21 Rash and other nonspecific skin eruption (principal)

== ENCOUNTER → 2025-04-03 14:35 | Outpatient (BNVA) | payer BC, SELFPAY | PROVIDERS: PCP Internal Medicine; Visit Provider Physician Assistant Medical | DX: Z13.89 Encounter for screening for other disorder (principal) ==